=== PATIENT | male | born 1965 | race American Indian/Alaskan Native ===

== ENCOUNTER 2019-01-26 06:54 | Inpatient (IN) | payer OTHER ==
[2019-01-26] MEDS ORDERED: ASPIRIN PO ONE (08:00)
[2019-01-26 08:50] LABS: Basophils % (Auto) 0.5 % (0.0-1.8); Eosinophils # (Auto) 0.3 K/mm3 (0.0-0.4); Eosinophils % (Auto) 4.5 % (0.0-4.3); Hematocrit 29.2 % (35.5-45.6); Hemoglobin 9.5 gm/dl (11.8-15.2); Lymphocytes # (Auto) 1.4 K/mm3 (1.2-5.4); Lymphocytes % (Auto) 21.2 % (13.4-35.0); Mean Corpuscular HGB Conc 33 % (32-34); Mean Corpuscular Volume 84 fl (84-94); Monocytes # (Auto) 0.5 K/mm3 (0.0-0.8); Monocytes % (Auto) 6.8 % (0.0-7.3); Platelet Count 200 K/mm3 (140-440); Red Blood Count 3.49 M/mm3 (3.65-5.03); Red Cell Distribution Width 15.1 % (13.2-15.2)
[2019-01-26 08:55] LABS: Calcium 7.9 mg/dL (8.4-10.2)
--- NOTE | 2019-01-26 09:20 | XRay Report ---
ROUTINE CHEST, TWO VIEWS: HISTORY: Short of breath. Mild cardiomegaly and small right pleural effusion are identified. No evidence for a pneumothorax or infiltrate. The bony structures are intact. IMPRESSION: Mild cardiomegaly and small right pleural effusion.
[2019-01-26 09:21] LABS: Chol/HDL Ratio 1.97 %
--- NOTE | 2019-01-26 10:20 | Emergency Department Report ---
ED General Adult HPI - General Chief complaint: Dyspnea/Respdistress Stated complaint: LEG PAIN/SWELLING Time Seen by Provider: 01/26/19 10:17 Source: patient, RN notes reviewed, old records reviewed Mode of arrival: Wheelchair Limitations: Physical Limitation - History of Present Illness Initial comments: This is a 53-year-old gentleman. The patient is not known to this provider previously. He endorses not having a primary care doctor currently. Past medical history includes vasomotor nephropathy, type 2 diabetes, neuropathy, peripheral artery disease, recent hemoglobin A1c of greater than 16, chronic pancreatitis, malnutrition The patient presents to the emergency room today with a complaint of nontraumatic bilateral lower extremity swelling. He reports the swelling is present for the past 3-4 days. It is constant. It is painless. It does not radiate anywhere. He does not have exacerbating or relieving factors. He denies headache, neck pain, chest pain, abdominal pain, urinary symptoms, hematemesis, bright red blood per rectum. He has chronic shortness of breath. -: days(s) Location: left, right, lower extremity Consistency: constant Improves with: other Worsens with: other - Related Data Home Medications Medication Instructions Recorded Confirmed Last Taken Lisinopril [Zestril TAB] 10 mg PO DAILY 01/26/19 01/26/19 01/25/19 10 mg amLODIPine [Norvasc] 10 mg PO DAILY 01/26/19 01/26/19 01/25/19 10 mg Previous Rx's Medication Instructions Recorded Last Taken Type Acetaminophen [Acetaminophen TAB] 650 mg PO Q4H PRN #15 tablet 10/24/18 01/25/19 Rx Insulin NPH/Regular [NovoLIN 70/30] 20 unit SUB-Q BID #100 units 10/24/18 01/25/19 Rx Insulin Regular, Human [HumuLIN R] 1 dose SUB-Q ACHS PRN #100 units 10/24/18 01/25/19 Rx Allergies Allergy/AdvReac Type Severity Reaction Status Date / Time No Known Allergies Allergy Unverified 10/21/18 19:15 ED Review of Systems ROS: Stated complaint: LEG PAIN/SWELLING Other details as noted in HPI Constitutional: malaise Eyes: denies: eye discharge ENT: denies: congestion Respiratory: shortness of breath, SOB with exertion, SOB at rest Cardiovascular: edema Gastrointestinal: denies: abdominal pain, nausea, vomiting Genitourinary: denies: dysuria Musculoskeletal: denies: back pain Skin: denies: lesions Neurological: weakness Psychiatric: depression ED Past Medical Hx - Past Medical History Previous Medical History?: Yes Hx Hypertension: Yes Hx Diabetes: Yes - Surgical History Past Surgical History?: Yes Additional Surgical History: toes amputated - Social History Smoking Status: Never Smoker Substance Use Type: None - Medications Home Medications: Home Medications Medication Instructions Recorded Confirmed Last Taken Type Acetaminophen [Acetaminophen TAB] 650 mg PO Q4H PRN #15 tablet 10/24/18 01/26/19 01/25/19 Rx Insulin NPH/Regular [NovoLIN 70/30] 20 unit SUB-Q BID #100 units 10/24/18 01/26/19 01/25/19 Rx Insulin Regular, Human [HumuLIN R] 1 dose SUB-Q ACHS PRN #100 units 10/24/18 01/26/19 01/25/19 Rx Lisinopril [Zestril TAB] 10 mg PO DAILY 01/26/19 01/26/19 01/25/19 History 10 mg amLODIPine [Norvasc] 10 mg PO DAILY 01/26/19 01/26/19 01/25/19 History 10 mg ED Physical Exam - General Limitations: No Limitations, Physical Limitation General appearance: alert - Head Head exam: Present: atraumatic, normocephalic - Eye Eye exam: Present: normal appearance, EOMI. Absent: nystagmus - ENT ENT exam: Present: normal exam, normal orophraynx, mucous membranes moist, normal external ear exam - Neck Neck exam: Present: normal inspection, full ROM. Absent: tenderness, meningismus - Respiratory Respiratory exam: Present: normal lung sounds bilaterally. Absent: respiratory distress, wheezes, rales, rhonchi, stridor - Cardiovascular Cardiovascular Exam: Present: regular rate, normal rhythm, normal heart sounds. Absent: bradycardia, tachycardia, irregular rhythm, systolic murmur, diastolic murmur, rubs, gallop - GI/Abdominal GI/Abdominal exam: Present: soft. Absent: distended, tenderness, guarding, rebo und, rigid, pulsatile mass - Rectal Rectal exam: Present: deferred - Extremities Exam Extremities exam: Present: normal inspection (multiple toe amputations, old appearing, healed, on the right lower extremity), pedal edema (4+ pitting edema on the bilateral lower extremities, going all the way up to the proximal thigh), other (2+ pulses noted in the bilateral upper, lower extremities. Compartments soft. No long bony tenderness. The pelvis is stable.). Absent: calf tenderness - Back Exam Back exam: Present: normal inspection, full ROM. Absent: tenderness, CVA tenderness (R), CVA tenderness (L), paraspinal tenderness, vertebral tenderness - Neurological Exam Neurological exam: Present: alert, other (Extraocular movements intact. Tongue midline. No facial droop. Facial sensation intact to light touch in the V1, V2, V3 distribution bilaterally. 5 and 5 strength in 4 extremities.. Sensation is intact to light touch in 4 extremities.). Absent: motor sensory deficit - Psychiatric Psychiatric exam: Present: flat affect - Skin Skin exam: Present: warm, dry, intact, normal color. Absent: rash ED Course Vital Signs 01/26/19 01/26/19 01/26/19 07:14 10:27 10:31 Temperature 98.8 F Pulse Rate 83 79 79 Respiratory 20 17 16 Rate Blood Pressure 157/98 178/103 O2 Sat by Pulse 99 98 98 Oximetry 01/26/19 01/26/19 01/26/19 10:41 10:51 11:00 Temperature Pulse Rate 77 80 81 Respiratory 16 15 12 Rate Blood Pressure 178/103 178/103 169/104 O2 Sat by Pulse 99 97 100 Oximetry 01/26/19 01/26/19 11:19 11:31 Temperature Pulse Rate Respiratory Rate Blood Pressure 178/103 178/103 O2 Sat by Pulse Oximetry - Reevaluation(s) Reevaluation #1: 01/26/19 11:30 Elevated creatinine kinase reviewed and appreciated. Discussed with consulting cardiology. They recommend no obvious fluids at this time. We will defer to the inpatient team to further manage this. Reevaluation #2: 01/26/19 18:57 dvt study negative ED Medical Decision Making - Lab Data Result diagrams: 01/26/19 08:17 01/26/19 08:17 Vital Signs 01/26/19 07:14 Temperature 98.8 F Pulse Rate 83 Respiratory 20 Rate Blood Pressure 157/98 O2 Sat by Pulse 99 Oximetry Lab Results 01/26/19 01/26/19 Range/Units 08:17 08:17 WBC 6.7 (4.5-11.0) K/mm3 RBC 3.49 L (3.65-5.03) M/mm3 Hgb 9.5 L (11.8-15.2) gm/dl Hct 29.2 L (35.5-45.6) % MCV 84 (84-94) fl MCH 27 L (28-32) pg MCHC 33 (32-34) % RDW 15.1 (13.2-15.2) % Plt Count 200 (140-440) K/mm3 Lymph % (Auto) 21.2 (13.4-35.0) % [place] % (Auto) 6.8 (0.0-7.3) % Eos % (Auto) 4.5 H (0.0-4.3) % Baso % (Auto) 0.5 (0.0-1.8) % Lymph # 1.4 (1.2-5.4) K/mm3 [place] # 0.5 (0.0-0.8) K/mm3 Eos # 0.3 (0.0-0.4) K/mm3 Baso # 0.0 (0.0-0.1) K/mm3 Seg Neutrophils % 67.0 (40.0-70.0) % Seg Neutrophils # 4.5 (1.8-7.7) K/mm3 Sodium 144 (137-145) mmol/L Potassium 3.5 L (3.6-5.0) mmol/L Chloride 111.3 H (98-107) mmol/L Carbon Dioxide 21 L (22-30) mmol/L Anion Gap 15 mmol/L BUN 20 (9-20) mg/dL Creatinine 1.8 H (0.8-1.5) mg/dL Estimated GFR 48 ml/min BUN/Creatinine Ratio 11 % Glucose 125 H (75-100) mg/dL Calcium 7.9 L (8.4-10.2) mg/dL Troponin T 0.321 H* (0.00-0.029) ng/mL Triglycerides 44 (2-149) mg/dL Cholesterol 154 (50-199) mg/dL LDL Cholesterol Direct 72 (50-130) mg/dL HDL Cholesterol 78 H (40-59) mg/dL Cholesterol/HDL Ratio 1.97 % - EKG Data -: EKG Interpreted by Ut EKG shows normal: sinus rhythm - EKG Data When compared to previous EKG there are: previous EKG unavailable 01/26/19 10:56 This EKG is limited by motion artifact. This is a normal sinus rhythm, 82 bpm, left axis deviation, left anterior fascicular block, incomplete right bundle- branch block, QTC prolonged, not having chest pain, flattened T waves laterally, this is an abnormal EKG, this is not consistent with ST elevation myocardial infarction. - Radiology Data Radiology results: report reviewed, image reviewed Print Report Referring Physician: JULIO CÉSAR HUTSON Patient Name: TOI TOLENTINO Date of : 1965 Sex: Male Report Date: 2019-01-26 Report Status: Finalized Findings [facility] [address] [id number] XRay Report Signed Patient: TOI TOLENTINO MR#: [id number] : 1965 Acct:[id number] Age/Sex: 53 / M ADM Date: 01/26/19 Loc: ED Attending Dr: Ordering Physician: JULIO CÉSAR HUTSON MD Date of Service: 01/26/19 Procedure(s): XR chest routine 2V Accession Number(s): [id number] cc: JULIO CÉSAR HUTSON MD Fluoro Time In Minutes: ROUTINE CHEST, TWO VIEWS: HISTORY: Short of breath. Mild cardiomegaly and small right pleural effusion are identified. No evidence for a pneumothorax or infiltrate. The bony structures are intact. IMPRESSION: Mild cardiomegaly and small right pleural effusion. Transcribed By: TTR Dictated By: EDILBERTO STUART JR, MD Electronically Authenticated By: EDILBERTO STUART JR, MD Signed Date/Time: 01/26/19 0915 - Medical Decision Making Differential diagnosis, including not limited to: Alcoholic nonischemic car diomyopathy, malnutrition, dependent edema, right-sided heart failure, type II myocardial infarction Assessment and plan: 53-year-old gentleman, known history of alcoholism, found to have bilateral lower extremity edema, elevated troponin, not having chest pain, likely type II myocardial infarction, likely secondary to undiagnosed congestive heart failure, likely secondary to chronic alcoholism. The patient is not tachycardic and he is not hypoxic. He will be given aspirin and Lasix. Additional screening laboratory studies have been ordered. Lower extremity DVT study has been ordered. Cardiology consult has been requested, and currently, Dr. Adi Baeza and Tate Azevedo of the cardiology team are evaluating the patient. The hospital physician, Dr. Cristi Reddy, we'll admit the patient to the medical service for fluid overload, presumed congestive heart failure, diuresis and further inpatient management. Critical Care Time: Yes Critical care time in (mins) excluding proc time.: 35 Critical care attestation.: If time is entered above; I have spent that time in minutes in the direct care of this critically ill patient, excluding procedure time. ED Disposition Clinical Impression: Dependent edema, Type 2 myocardial infarction, Cardiomyopathy, alcoholic Disposition: 09 OP ADMIT IP TO THIS HOSP Is pt being admited?: Yes Does the pt Need Aspirin: Yes Condition: Stable
[2019-01-26] MEDS ORDERED: LASIX IV ONE (10:27)
[2019-01-26 10:55] LABS: INR 1.05 (0.87-1.13)
[2019-01-26] MEDS ORDERED: OSCAL PO STA (10:58)
[2019-01-26 11:01] LABS: Alanine Aminotransferase 49 units/L (7-56); Albumin 2.8 g/dL (3.9-5)
[2019-01-26] MEDS ORDERED: NITROSTAT SL PRN (11:04)
[2019-01-26] MEDS ORDERED: TYLENOL PO PRN ×2 (11:04→11:08)
[2019-01-26] MEDS ORDERED: ATIVAN IV PRN (11:04)
[2019-01-26] MEDS ORDERED: ZOFRAN IV PRN (11:04)
[2019-01-26] MEDS ORDERED: D50W (25GM) Syringe IV PRN (11:09)
--- NOTE | 2019-01-26 11:11 | History and Physical Report ---
History of Present Illness Date of examination: 01/26/19 Date of admission: 01/26/19 Chief complaint: bilateral lower ext swelling History of present illness: Patient is a 53 year old male with past medical history of DM, PVD s/p partial right foot amputation, chronic pancreatitis, prior ETOH abuse (states he quit drinking several years ago). We'll presents to the ED with complaints of bilateral lower extremity swelling, shortness of breath and orthopnea which she states has been going on for several days prior to arrival but on further discussion the patient reports that he just recently located from the [facility] and has been to multiple hospitals at that [facility]. On arrival to the hospital the patient was noted to have elevated creatinine and troponin and also elevated bilateral swelling. He does not have a PCP currently. He denies any chest pain, palpitations, n/v, diaphoresis, dizziness or syncope. He denies any prior cardiac diagnoses, including CAD, AMI or HF. Past medical history includes vasomotor nephropathy, type 2 diabetes, neuropathy, peripheral artery disease, recent hemoglobin A1c of greater than 16, chronic pancreatitis, malnutrition, Alcoholic nonischemic cardiomyopathy, malnutrition, dependent edema, right-sided heart failure, type II myocardial infarction Past History Past Surgical History: Other (partial amputation) Social history: no significant social history Family history: no significant family history Medications and Allergies Allergies Allergy/AdvReac Type Severity Reaction Status Date / Time No Known Allergies Allergy Unverified 10/21/18 19:15 Home Medications Medication Instructions Recorded Confirmed Last Taken Type Acetaminophen [Acetaminophen TAB] 650 mg PO Q4H PRN #15 tablet 10/24/18 01/26/19 01/25/19 Rx Insulin NPH/Regular [NovoLIN 70/30] 20 unit SUB-Q BID #100 units 10/24/18 01/26/19 01/25/19 Rx Insulin Regular, Human [HumuLIN R] 1 dose SUB-Q ACHS PRN #100 units 10/24/18 01/26/19 01/25/19 Rx Lisinopril [Zestril TAB] 10 mg PO DAILY 01/26/19 01/26/19 01/25/19 History 10 mg amLODIPine [Norvasc] 10 mg PO DAILY 01/26/19 01/26/19 01/25/19 History 10 mg Review of Systems All systems: negative Constitutional: weight gain, fever, lethargy, no anorexia, no fatigue, no weakness, no malaise Cardiovascular: orthopnea, palpitations, edema, lightheadedness, shortness of breath, high blood pressure Respiratory: cough, shortness of breath, dyspnea on exertion, congestion, no wheezing, no pleurisy, no pain on inspiration, no sleep apnea Gastrointestinal: no abdominal pain, no nausea, no vomiting, no diarrhea, no constipation, no change in bowel habits, no hematemesis, no hematochezia, no early satiety, no indigestion, no jaundice, no dyspepsia/bloating, no early satiety Genitourinary Male: no dysuria, no flank pain, no discharge, no urinary frequency, no urinary hesitancy, no incontinence, no decreased libido, no testicular lump, no polyuria Musculoskeletal: no neck pain, no shooting arm pain, no arm numbness/tingling, no low back pain, no morning stiffness, no muscle weakness, no muscle cramps, no frequent falls, no prior amputations Integumentary: no deferred, no pruritis, no sores, no wounds, no jaundice, no bullae, no lesions, no darkening of skin, no depigmentation, no acne, no brittle nails, no onychomycosis Neurological: no transient paralysis, no weakness, no numbness, no syncope, no headaches, no change in speech, no motor disturbance, no loss of vision, no burning pain Psychiatric: no memory loss, no change in sleep habits, no insomnia, no confusion Endocrine: no heat intolerance, no excessive thirst, no polyuria, no palpatations, no high blood sugars Exam - Physical Exam Narrative exam: VITAL SIGNS: Reviewed. GENERAL: The patient appeared well nourished and normally developed, Vital signs as documented. HEAD: No signs of head trauma. EYES: Pupils are equal. Extraocular motions intact. EARS: Hearing grossly intact. MOUTH: Oropharynx is normal. NECK: No adenopathy, no JVD. Mildly tender on the right side. CHEST: Chest with clear breath sounds bilaterally. No wheezes, rales, or rhonchi. CARDIAC: Regular rate and rhythm. S1 and S2, without murmurs, gallops, or rubs. VASCULAR: +3 Edema. Peripheral pulses normal and equal in all extremities. ABDOMEN: Soft, non tender and non distended. No rebound or guarding, and no masses palpated. Bowel Sounds normal. MUSCULOSKELETAL: Good range of motion of all major joints. Extremities without clubbing, cyanosis. +3 edema. NEUROLOGIC EXAM: Alert and oriented x 3 No focal sensory or strength de ficits. Speech normal. Follows commands. PSYCHIATRIC: Mood normal. SKIN: No rash or lesions. - Constitutional Vitals: Temp Pulse Resp BP Pulse Ox 98.8 F 83 20 157/98 99 01/26/19 07:14 01/26/19 07:14 01/26/19 07:14 01/26/19 07:14 01/26/19 07:14 Results - Labs CBC & Chem 7: 01/26/19 08:17 01/26/19 08:17 Labs: Laboratory Last Values WBC 6.7 K/mm3 (4.5-11.0) 01/26/19 08:17 RBC 3.49 M/mm3 (3.65-5.03) L 01/26/19 08:17 Hgb 9.5 gm/dl (11.8-15.2) L 01/26/19 08:17 Hct 29.2 % (35.5-45.6) L 01/26/19 08:17 MCV 84 fl (84-94) 01/26/19 08:17 MCH 27 pg (28-32) L 01/26/19 08:17 MCHC 33 % (32-34) 01/26/19 08:17 RDW 15.1 % (13.2-15.2) 01/26/19 08:17 Plt Count 200 K/mm3 (140-440) 01/26/19 08:17 Lymph % (Auto) 21.2 % (13.4-35.0) 01/26/19 08:17 [place] % (Auto) 6.8 % (0.0-7.3) 01/26/19 08:17 Eos % (Auto) 4.5 % (0.0-4.3) H 01/26/19 08:17 Baso % (Auto) 0.5 % (0.0-1.8) 01/26/19 08:17 Lymph # 1.4 K/mm3 (1.2-5.4) 01/26/19 08:17 [place] # 0.5 K/mm3 (0.0-0.8) 01/26/19 08:17 Eos # 0.3 K/mm3 (0.0-0.4) 01/26/19 08:17 Baso # 0.0 K/mm3 (0.0-0.1) 01/26/19 08:17 Seg Neutrophils % 67.0 % (40.0-70.0) 01/26/19 08:17 Seg Neutrophils # 4.5 K/mm3 (1.8-7.7) 01/26/19 08:17 PT 14.4 Sec. (12.2-14.9) 01/26/19 10:38 INR 1.05 (0.87-1.13) 01/26/19 10:38 Sodium 144 mmol/L (137-145) 01/26/19 08:17 Potassium 3.5 mmol/L (3.6-5.0) L 01/26/19 08:17 Chloride 111.3 mmol/L (98-107) H 01/26/19 08:17 Carbon Dioxide 21 mmol/L (22-30) L 01/26/19 08:17 15 mmol/L 01/26/19 08:17 BUN 20 mg/dL (9-20) 01/26/19 08:17 1.8 mg/dL (0.8-1.5) H 01/26/19 08:17 Estimated GFR 48 ml/min 01/26/19 08:17 11 % 01/26/19 08:17 Glucose 125 mg/dL (75-100) H 01/26/19 08:17 Calcium 7.9 mg/dL (8.4-10.2) L 01/26/19 08:17 Magnesium 1.70 mg/dL (1.7-2.3) 01/26/19 08:09 0.20 mg/dL (0.1-1.2) 01/26/19 08:09 AST 45 units/L (5-40) H 01/26/19 08:09 ALT 49 units/L (7-56) 01/26/19 08:09 210 units/L (35-129) H 01/26/19 08:09 1666 units/L (55-170) H 01/26/19 08:09 0.321 ng/mL (0.00-0.029) H* 01/26/19 08:17 NT-Pro-B Natriuret Pep 22641 pg/mL (0-900) H 01/26/19 08:09 5.4 g/dL (6.3-8.2) L 01/26/19 08:09 2.8 g/dL (3.9-5) L 01/26/19 08:09 1.1 % 01/26/19 08:09 Triglycerides 44 mg/dL (2-149) 01/26/19 08:17 Cholesterol 154 mg/dL (50-199) 01/26/19 08:17 72 mg/dL (50-130) 01/26/19 08:17 78 mg/dL (40-59) H 01/26/19 08:17 1.97 % 01/26/19 08:17 - Imaging and Cardiology Chest x-ray: image reviewed Assessment and Plan Assessment and plan: Patient is a 53 year old male with past medical history of DM, PVD s/p partial right foot amputation, chronic pancreatitis, prior ETOH abuse (states he quit drinking several years ago). We'll presents to the ED with complaints of bilateral lower extremity swelling, shortness of breath and orthopnea which she states has been going on for several days prior to arrival but on further disc ussion the patient reports that he just recently located from the [facility] and has been to multiple hospitals at that [facility]. On arrival to the hospital the patient was noted to have elevated creatinine and troponin and also elevated bilateral swelling. He does not have a PCP currently. He denies any chest pain, palpitations, n/v, diaphoresis, dizziness or syncope. He denies any prior cardiac diagnoses, including CAD, AMI or HF. 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 Obtain records from [facility] if we can find in the DVT and GI prophylaxis Plan of care discussed with the patient in detail Advance Directives: Yes Plan of care discussed with patient/family: Yes
[2019-01-26 11:26] LABS: Bilirubin,Direct < 0.2 mg/dL (0-0.2)
[2019-01-26] MEDS ORDERED: CREON DR 6,000 UNITS PO SCH (11:30)
--- NOTE | 2019-01-26 12:23 | Vascular Lab Report ---
PROCEDURE: VL VENOUS DUPLEX LE BILAT TECHNIQUE: Mercado scale, color and pulsed Doppler ultrasound with color flow and spectral analysis eval uation of both lower extremities were performed to assess for deep vein thrombosis. HISTORY: B/L LOWER EXT SWELLING COMPARISONS: None currently available. FINDINGS: Bilateral soft tissue swelling. RIGHT extremity: There is normal grayscale appearance and compressibility. Normal phasic pulsed Doppler and normal col or Doppler flow are visualized. The interrogated vessels show normal augmentation. LEFT extremity: There is normal grayscale appearance and compressibility. Normal phasic pulsed Doppler and normal col or Doppler flow are visualized. The interrogated vessels show normal augmentation. IMPRESSION: * No evidence for DVT. This document is electronically signed by Andrew Thompson MD., Jan 26 2019 12:21:26 PM ET
[2019-01-26] MEDS: HumaLOG SUB-Q SCH ×3 (12:52→23:04)
[2019-01-26] MEDS ORDERED: APRESOLINE IV ONE (13:42)
--- NOTE | 2019-01-26 14:06 | Consultation ---
History of Present Illness Consult date: 01/26/19 Requesting physician: CARL DOS SANTOS Consult reason: congestive heart failure, elevated troponin History of present illness: The pt is a 53-year-old gentleman with a past medical history of DM, PVD s/p partial left foot amputation, chronic pancreatitis, prior ETOH abuse (states he quit drinking several years ago). He is previously unknown to our practice. He does not have a PCP currently. He presented with complaints of BLE swelling, SOB and orthopnea for several days prior to arrival. He denies any chest pain, pa lpitations, n/v, diaphoresis, dizziness or syncope. He denies any prior cardiac diagnoses, including CAD, AMI or HF. Past History Past Medical History: diabetes, PVD Past Surgical History: Other (partial left foot amputation) Social history: alcohol abuse (former). denies: smoking, prescription drug abuse Medications and Allergies Allergies Allergy/AdvReac Type Severity Reaction Status Date / Time No Known Allergies Allergy Unverified 10/21/18 19:15 Home Medications Medication Instructions Recorded Confirmed Last Taken Type Acetaminophen [Acetaminophen TAB] 650 mg PO Q4H PRN #15 tablet 10/24/18 01/26/19 01/25/19 Rx Insulin NPH/Regular [NovoLIN 70/30] 20 unit SUB-Q BID #100 units 10/24/18 01/26/19 01/25/19 Rx Insulin Regular, Human [HumuLIN R] 1 dose SUB-Q ACHS PRN #100 units 10/24/18 01/26/19 01/25/19 Rx Lisinopril [Zestril TAB] 10 mg PO DAILY 01/26/19 01/26/19 01/25/19 History 10 mg amLODIPine [Norvasc] 10 mg PO DAILY 01/26/19 01/26/19 01/25/19 History 10 mg Active Meds: Active Medications Acetaminophen (Tylenol) 650 mg PO Q4H PRN PRN Reason: Non Cardiac Pain or Temp>100.5 Amlodipine Besylate (Norvasc) 10 mg PO DAILY JAMIE Lipase/Protease/Amylase (Creon Dr 12,000 Units) 6 each PO AC JAMIE Aspirin (Baby Aspirin) 81 mg PO QDAY JAMIE Dextrose (D50w (25gm) Syringe) 50 ml IV PRN PRN PRN Reason: Hypoglycemia Last Admin: 01/26/19 13:03 Dose: 50 ml Documented by: Furosemide (Lasix) 40 mg IV 0600,1800 [facility] Insulin Human Isoph/Insulin Regular (Humulin 70/30) 20 unit SUB-Q BID [facility] Insulin Human Lispro (Humalog) 0 unit SUB-Q ACHS [facility]; Protocol Last Admin: 01/26/19 12:52 Dose: Not Given Documented by: Lorazepam (Ativan) 2 mg IV Q1H PRN PRN Reason: CIWA-Ar 8-15 Nitroglycerin (Nitrostat) 0.4 mg SL .Q5MIN PRN PRN Reason: Chest Pain Ondansetron HCl (Zofran) 4 mg IV Q8H PRN PRN Reason: Nausea And Vomiting Sodium Chloride (Sodium Chloride Flush Syringe 10 Ml) 10 ml IV BID [facility] Sodium Chloride (Sodium Chloride Flush Syringe 10 Ml) 10 ml IV PRN PRN PRN Reason: LINE FLUSH Review of Systems Constitutional: no fever, no chills, no sweats Ears, nose, mouth and throat: no ear pain, no nose pain, no sinus pressure, no sinus pain Cardiovascular: orthopnea, edema, shortness of breath, dyspnea on exertion, leg edema, no chest pain, no palpitations, no rapid/irregular heart beat, no syncope, no lightheadedness, no high blood pressure Respiratory: shortness of breath, dyspnea on exertion, no cough, no congestion, no wheezing, no pain on inspiration Gastrointestinal: no abdominal pain, no nausea, no vomiting, no diarrhea, no constipation Genitourinary Male: no dysuria, no hematuria, no flank pain, no discharge, no urinary frequency, no urinary hesitancy Musculoskeletal: no neck stiffness, no neck pain, no shooting arm pain, no arm numbness/tingling, no low back pain, no shooting leg pain Integumentary: no rash, no pruritis, no redness, no sores, no wounds Neurological: no head injury, no paralysis, no weakness, no parathesias, no numbness, no tingling, no seizures, no syncope Psychiatric: no anxiety Endocrine: no cold intolerance, no heat intolerance Hematologic/Lymphatic: no easy bruising, no easy bleeding Allergic/Immunologic: no urticaria, no wheezing Physical Examination Vital Signs Temp Pulse Resp BP Pulse Ox 98.8 F 83 20 157/98 99 01/26/19 07:14 01/26/19 07:14 01/26/19 07:14 01/26/19 07:14 01/26/19 07:14 General appearance: no acute distress HEENT: Positive: PERRL, Normocephaly, Mucus Membranes Moist Neck: Positive: neck supple, trachea midline Cardiac: Positive: Reg Rate and Rhythm, S1/S2, S3 Lungs: Positive: Decreased Breath Sounds Abdomen: Negative: Tender Skin: Negative: Rash Musculoskeletal: other (partial left foot amputation ) Extremities: Present: +3 Edema (BLE ) Results 01/26/19 08:17 01/26/19 08:17 Cardiac Enzymes 01/26/19 Range/Units 08:09 AST 45 H (5-40) units/L Coagulation 01/26/19 Range/Units 10:38 PT 14.4 (12.2-14.9) Sec. INR 1.05 (0.87-1.13) Lipids 01/26/19 Range/Units 08:17 Triglycerides 44 (2-149) mg/dL Cholesterol 154 (50-199) mg/dL HDL Cholesterol 78 H (40-59) mg/dL Cholesterol/HDL Ratio 1.97 % CBC 01/26/19 Range/Units 08:17 WBC 6.7 (4.5-11.0) K/mm3 RBC 3.49 L (3.65-5.03) M/mm3 Hgb 9.5 L (11.8-15.2) gm/dl Hct 29.2 L (35.5-45.6) % Plt Count 200 (140-440) K/mm3 Lymph # 1.4 (1.2-5.4) K/mm3 Ward # 0.5 (0.0-0.8) K/mm3 Eos # 0.3 (0.0-0.4) K/mm3 Baso # 0.0 (0.0-0.1) K/mm3 Comprehensive Metabolic Panel 01/26/19 01/26/19 Range/Units 08:09 08:17 Sodium 144 (137-145) mmol/L Potassium 3.5 L (3.6-5.0) mmol/L Chloride 111.3 H (98-107) mmol/L Carbon Dioxide 21 L (22-30) mmol/L BUN 20 (9-20) mg/dL Creatinine 1.8 H (0.8-1.5) mg/dL Glucose 125 H (75-100) mg/dL Calcium 7.9 L (8.4-10.2) mg/dL Direct Bilirubin < 0.2 (0-0.2) mg/dL Indirect Bilirubin 0.0 mg/dL AST 45 H (5-40) units/L ALT 49 (7-56) units/L Alkaline Phosphatase 210 H (35-129) units/L Total Protein 5.4 L (6.3-8.2) g/dL Albumin 2.8 L (3.9-5) g/dL - Imaging and Cardiology Echo: pending EKG: report reviewed, image reviewed EKG interpretations - Telemetry EKG Rhythm: Sinus Rhythm - EKG Sinus rhythms and dysrhythmias: sinus rhythm Assessment and Plan Pt presented with apparent new diagnosis acute HF. He is noted to have a significant degree of BLE edema and S3 gallop on evaluation. Agree with IV lasix BID. Monitor renal indices. Optimize BPs - initiate coreg, cont amlodipine. No ACEI/ARB at this time in setting of renal insufficiency. Obtain echo. Troponin elevation appears c/w NSTEMI type II in setting of HF, renal insuffic iency, uncontrolled HTN, anemia, etc. Pt denies any chest pain, ECG with no acute ischemic changes. Cont to trend Fabi and repeat ECG in AM. Additional recs to follow per hospital course. The patient has been seen in conjunction with Dr. Baeza who agrees with the assessment and plan of care. - Patient Problems (1) Acute heart failure Current Visit: Yes Status: Acute (2) NSTEMI (non-ST elevated myocardial infarction) Current Visit: Yes Status: Acute Plan to address problem: type II (3) Uncontrolled hypertension Current Visit: Yes Status: Chronic (4) Diabetes Current Visit: Yes Status: Chronic (5) History of chronic pancreatitis Current Visit: Yes Status: Chronic (6) History of ETOH abuse Current Visit: Yes Status: Chronic (7) PVD (peripheral vascular disease) Current Visit: Yes Status: Chronic (8) Anemia Current Visit: Yes Status: Acute (9) ANYA (acute kidney injury) Current Visit: Yes Status: Acute
[2019-01-26] MEDS ORDERED: K-DUR PO ONE (14:19)
[2019-01-26 14:30] LABS: Creatine Kinase MB 14.8 ng/mL (0.0-4.0)
--- NOTE | 2019-01-26 15:08 | History and Physical Report ---
History of Present Illness Date of examination: 01/26/19 Date of admission: 01/26/19 10:38 Chief complaint: bilateral lower ext swelling History of present illness: The pt is a 53-year-old gentleman with a past medical history of DM, PVD s/p partial left foot amputation, chronic pancreatitis, prior ETOH abuse (states he quit drinking several years ago). He is previously unknown to our practice. He does not have a PCP currently. He presented with complaints of BLE swelling, SOB and orthopnea for several days prior to arrival. He denies any chest pain, palpitations, n/v, diaphoresis, dizziness or syncope. He denies any prior cardiac diagnoses, including CAD, AMI or HF. Past History Past Medical History: diabetes, PVD Past Surgical History: Other (partial left foot amputation) Social history: alcohol abuse (former). denies: smoking, prescription drug abuse Medications and Allergies Allergies Allergy/AdvReac Type Severity Reaction Status Date / Time No Known Allergies Allergy Unverified 10/21/18 19:15 Home Medications Medication Instructions Recorded Confirmed Last Taken Type Acetaminophen [Acetaminophen TAB] 650 mg PO Q4H PRN #15 tablet 10/24/18 01/26/19 01/25/19 Rx Insulin NPH/Regular [NovoLIN 70/30] 20 unit SUB-Q BID #100 units 10/24/18 01/26/19 01/25/19 Rx Insulin Regular, Human [HumuLIN R] 1 dose SUB-Q ACHS PRN #100 units 10/24/18 01/26/19 01/25/19 Rx Lisinopril [Zestril TAB] 10 mg PO DAILY 01/26/19 01/26/19 01/25/19 History 10 mg amLODIPine [Norvasc] 10 mg PO DAILY 01/26/19 01/26/19 01/25/19 History 10 mg Active Meds: Active Medications Acetaminophen (Tylenol) 650 mg PO Q4H PRN PRN Reason: Non Cardiac Pain or Temp>100.5 Amlodipine Besylate (Norvasc) 10 mg PO DAILY JAMIE Lipase/Protease/Amylase (Alex Espinoza 12,000 Units) 6 each PO AC JAMIE Aspirin (Baby Aspirin) 81 mg PO QDAY JAMIE Carvedilol (Coreg) 6.25 mg PO BID JAMIE Dextrose (D50w (25gm) Syringe) 50 ml IV PRN PRN PRN Reason: Hypoglycemia Last Admin: 01/26/19 13:03 Dose: 50 ml Documented by: Furosemide (Lasix) 40 mg IV 0600,1800 [facility] Insulin Human Isoph/Insulin Regular (Humulin 70/30) 20 unit SUB-Q BID [facility] Insulin Human Lispro (Humalog) 0 unit SUB-Q ACHS [facility]; Protocol Last Admin: 01/26/19 12:52 Dose: Not Given Documented by: Lorazepam (Ativan) 2 mg IV Q1H PRN PRN Reason: CIWA-Ar 8-15 Nitroglycerin (Nitrostat) 0.4 mg SL .Q5MIN PRN PRN Reason: Chest Pain Ondansetron HCl (Zofran) 4 mg IV Q8H PRN PRN Reason: Nausea And Vomiting Sodium Chloride (Sodium Chloride Flush Syringe 10 Ml) 10 ml IV BID [facility] Sodium Chloride (Sodium Chloride Flush Syringe 10 Ml) 10 ml IV PRN PRN PRN Reason: LINE FLUSH Exam - Constitutional Vitals: Temp Pulse Resp BP Pulse Ox 98.0 F 81 18 192/111 97 01/26/19 12:46 01/26/19 12:46 01/26/19 12:46 01/26/19 12:46 01/26/19 12:46 Results - Labs CBC & Chem 7: 01/26/19 08:17 01/26/19 08:17 Labs: Laboratory Last Values WBC 6.7 K/mm3 (4.5-11.0) 01/26/19 08:17 RBC 3.49 M/mm3 (3.65-5.03) L 01/26/19 08:17 Hgb 9.5 gm/dl (11.8-15.2) L 01/26/19 08:17 Hct 29.2 % (35.5-45.6) L 01/26/19 08:17 MCV 84 fl (84-94) 01/26/19 08:17 MCH 27 pg (28-32) L 01/26/19 08:17 MCHC 33 % (32-34) 01/26/19 08:17 RDW 15.1 % (13.2-15.2) 01/26/19 08:17 Plt Count 200 K/mm3 (140-440) 01/26/19 08:17 Lymph % (Auto) 21.2 % (13.4-35.0) 01/26/19 08:17 Person % (Auto) 6.8 % (0.0-7.3) 01/26/19 08:17 Eos % (Auto) 4.5 % (0.0-4.3) H 01/26/19 08:17 Baso % (Auto) 0.5 % (0.0-1.8) 01/26/19 08:17 Lymph # 1.4 K/mm3 (1.2-5.4) 01/26/19 08:17 Person # 0.5 K/mm3 (0.0-0.8) 01/26/19 08:17 Eos # 0.3 K/mm3 (0.0-0.4) 01/26/19 08:17 Baso # 0.0 K/mm3 (0.0-0.1) 01/26/19 08:17 Seg Neutrophils % 67.0 % (40.0-70.0) 01/26/19 08:17 Seg Neutrophils # 4.5 K/mm3 (1.8-7.7) 01/26/19 08:17 PT 14.4 Sec. (12.2-14.9) 01/26/19 10:38 INR 1.05 (0.87-1.13) 01/26/19 10:38 Sodium 144 mmol/L (137-145) 01/26/19 08:17 Potassium 3.5 mmol/L (3.6-5.0) L 01/26/19 08:17 Chloride 111.3 mmol/L (98-107) H 01/26/19 08:17 Carbon Dioxide 21 mmol/L (22-30) L 01/26/19 08:17 15 mmol/L 01/26/19 08:17 BUN 20 mg/dL (9-20) 01/26/19 08:17 1.8 mg/dL (0.8-1.5) H 01/26/19 08:17 Estimated GFR 48 ml/min 01/26/19 08:17 11 % 01/26/19 08:17 Glucose 125 mg/dL (75-100) H 01/26/19 08:17 POC Glucose 133 (70-105) H 01/26/19 13:43 Calcium 7.9 mg/dL (8.4-10.2) L 01/26/19 08:17 Magnesium 1.70 mg/dL (1.7-2.3) 01/26/19 08:09 0.20 mg/dL (0.1-1.2) 01/26/19 08:09 < 0.2 mg/dL (0-0.2) 01/26/19 08:09 0.0 mg/dL 01/26/19 08:09 AST 45 units/L (5-40) H 01/26/19 08:09 ALT 49 units/L (7-56) 01/26/19 08:09 210 units/L (35-129) H 01/26/19 08:09 1732 units/L (55-170) H 01/26/19 13:44 CK-MB (CK-2) 14.8 ng/mL (0.0-4.0) H 01/26/19 13:44 CK-MB (CK-2) Rel Index 0.8 (0-4) 01/26/19 13:44 0.264 ng/mL (0.00-0.029) H* 01/26/19 13:44 NT-Pro-B Natriuret Pep 29478 pg/mL (0-900) H 01/26/19 08:09 5.4 g/dL (6.3-8.2) L 01/26/19 08:09 2.8 g/dL (3.9-5) L 01/26/19 08:09 1.1 % 01/26/19 08:09 Triglycerides 44 mg/dL (2-149) 01/26/19 08:17 Cholesterol 154 mg/dL (50-199) 01/26/19 08:17 72 mg/dL (50-130) 01/26/19 08:17 78 mg/dL (40-59) H 01/26/19 08:17 1.97 % 01/26/19 08:17
[2019-01-26] MEDS ORDERED: APRESOLINE IV PRN (15:24)
[2019-01-26] MEDS: NORVASC PO SCH (15:38)
[2019-01-26] MEDS: COREG PO SCH ×2 (15:39→23:13)
--- NOTE | 2019-01-26 17:59 | Consultation ---
History of Present Illness - History of Present Illness 53-year-old gentleman with history significant for hypertension admitted with complaints of worsening shortness of breath or significant orthopnea and PND also reports significant extremity edema which is it happened very suddenly. He denies any excessive salt intake denies any known prior history of congestive heart failure he denies any abdominal distention denies any strenuous activity or exercise in the preceding few days. He denies any abdominal pain fever chills Past History Past Medical History: diabetes, PVD Past Surgical History: Other (partial amputation) Social history: no significant social history Family history: no significant family history Medications and Allergies Allergies Allergy/AdvReac Type Severity Reaction Status Date / Time No Known Allergies Allergy Unverified 10/21/18 19:15 Home Medications Medication Instructions Recorded Confirmed Last Taken Type Acetaminophen [Acetaminophen TAB] 650 mg PO Q4H PRN #15 tablet 10/24/18 01/26/19 01/25/19 Rx Insulin NPH/Regular [NovoLIN 70/30] 20 unit SUB-Q BID #100 units 10/24/18 01/26/19 01/25/19 Rx Insulin Regular, Human [HumuLIN R] 1 dose SUB-Q ACHS PRN #100 units 10/24/18 01/26/19 01/25/19 Rx Lisinopril [Zestril TAB] 10 mg PO DAILY 01/26/19 01/26/19 01/25/19 History 10 mg amLODIPine [Norvasc] 10 mg PO DAILY 01/26/19 01/26/19 01/25/19 History 10 mg Active Meds: Active Medications Acetaminophen (Tylenol) 650 mg PO Q4H PRN PRN Reason: Non Cardiac Pain or Temp>100.5 Amlodipine Besylate (Norvasc) 10 mg PO DAILY [facility] Last Admin: 01/26/19 15:38 Dose: 10 mg Documented by: Lipase/Protease/Amylase (Alex Espinoza 12,000 Units) 6 each PO AC JAMIE Aspirin (Baby Aspirin) 81 mg PO QDAY JAMIE Carvedilol (Coreg) 6.25 mg PO BID [facility] Last Admin: 01/26/19 15:39 Dose: 6.25 mg Documented by: Dextrose (D50w (25gm) Syringe) 50 ml IV PRN PRN PRN Reason: Hypoglycemia Last Admin: 01/26/19 13:03 Dose: 50 ml Documented by: Furosemide (Lasix) 80 mg IV 09,1999 [facility] Hydralazine HCl (Apresoline) 10 mg IV Q4HR PRN PRN Reason: Hypertension Insulin Human Isoph/Insulin Regular (Humulin 70/30) 20 unit SUB-Q BID [facility] Insulin Human Lispro (Humalog) 0 unit SUB-Q ACHS [facility]; Protocol Last Admin: 01/26/19 12:52 Dose: Not Given Documented by: Lorazepam (Ativan) 2 mg IV Q1H PRN PRN Reason: CIWA-Ar 8-15 Nitroglycerin (Nitrostat) 0.4 mg SL .Q5MIN PRN PRN Reason: Chest Pain Ondansetron HCl (Zofran) 4 mg IV Q8H PRN PRN Reason: Nausea And Vomiting Sodium Chloride (Sodium Chloride Flush Syringe 10 Ml) 10 ml IV BID [facility] Sodium Chloride (Sodium Chloride Flush Syringe 10 Ml) 10 ml IV PRN PRN PRN Reason: LINE FLUSH Exam - Vital Signs Vital signs: Vital Signs Temp Pulse Resp BP Pulse Ox 98.8 F 83 20 157/98 99 01/26/19 07:14 01/26/19 07:14 01/26/19 07:14 01/26/19 07:14 01/26/19 07:14 - General Appearance General appearance: well-developed, well-nourished EENT: ATNC, PERRL, mucous membranes moist Neck: Present: neck supple, JVD/HJR Respiratory: Decreased Breath Sounds Heart: regular, tachycardia, S1S2, S3, other (edema) Gastrointestinal: Present: normal, normoactive bowel sounds Integumentary: no rash Neurologic: no focal deficit, alert and oriented x3, CN 3-12 intact Musculoskeletal: Present: deferred, other (amputation) Psychiatric: mood/affect appropriate Results - Lab Results 01/26/19 08:17 01/26/19 08:17 Most recent lab results Calcium 7.9 mg/dL (8.4-10.2) L 01/26/19 08:17 Magnesium 1.70 mg/dL (1.7-2.3) 01/26/19 08:09 - Image Kidney/bladder ultrasound: other (I reviewed chest x-ray with some increased interstitial markings cardiomegaly without overt edema) Assessment and Plan - Patient Problems (1) Acute kidney injury Current Visit: Yes Status: Acute Plan to address problem: Acute kidney injury Baseline creatinine 1.2 mg/dl Current creatinine 1.8 mg/DL We'll initiate diuretics Etiology of acute kidney injury related with cardiorenal syndrome Obtain urine studies Avoid nephrotoxic medications (2) Acute heart failure Current Visit: Yes Status: Acute Qualifiers: Heart failure type: unspecified Qualified Code(s): I50.9 - Heart failure, unspecified Plan to address problem: Acute congestive heart failure. 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
[2019-01-26] MEDS ORDERED: LASIX IV SCH (18:00)
[2019-01-26] MEDS: CREON DR 12,000 UNITS PO SCH (18:25)
[2019-01-26 19:02] LABS: Creatine Kinase MB 15.4 ng/mL (0.0-4.0)
[2019-01-26] MEDS: LASIX IV SCH (21:35)
[2019-01-26] MEDS ORDERED: HEPARIN 10,000 UNITS/10 ML IV ONE (22:01)
[2019-01-26] MEDS: SODIUM CHLORIDE FLUSH SYRINGE 10 ML IV SCH (23:05)
[2019-01-26] MEDS: HEPARIN/ 0.45% NACL-25,000 UNIT/500 ML 25,000 UNIT/500 ML BAG IV SCH (23:21)
[2019-01-27 00:03] LABS: Hematocrit 27.3 % (35.5-45.6); Hemoglobin 8.9 gm/dl (11.8-15.2)
[2019-01-27 00:14] LABS: INR 1.15 (0.87-1.13)
[2019-01-27 00:37] LABS: Partial Thromboplastin Time 88.4 Sec. (24.2-36.6)
[2019-01-27] MEDS: LASIX IV SCH ×2 (05:34→21:24)
[2019-01-27 06:36] LABS: Basophils % (Auto) 0.7 % (0.0-1.8); Eosinophils # (Auto) 0.3 K/mm3 (0.0-0.4); Eosinophils % (Auto) 5.1 % (0.0-4.3); Hematocrit 25.2 % (35.5-45.6); Hemoglobin 8.4 gm/dl (11.8-15.2); Lymphocytes # (Auto) 1.1 K/mm3 (1.2-5.4); Lymphocytes % (Auto) 20.4 % (13.4-35.0); Mean Corpuscular HGB Conc 33 % (32-34); Mean Corpuscular Volume 82 fl (84-94); Monocytes # (Auto) 0.3 K/mm3 (0.0-0.8); Monocytes % (Auto) 5.9 % (0.0-7.3); Platelet Count 155 K/mm3 (140-440); Red Blood Count 3.09 M/mm3 (3.65-5.03); Red Cell Distribution Width 14.8 % (13.2-15.2)
[2019-01-27 07:40] LABS: Calcium 7.6 mg/dL (8.4-10.2)
[2019-01-27] MEDS: COREG PO SCH ×2 (09:35→21:25)
[2019-01-27] MEDS: BABY ASPIRIN PO SCH (09:35)
[2019-01-27] MEDS: NORVASC PO SCH (09:36)
--- NOTE | 2019-01-27 09:47 | Progress Note ---
Assessment and Plan - Patient Problems (1) Acute kidney injury Current Visit: Yes Status: Acute Plan to address problem: Acute kidney injury Baseline creatinine 1.2 mg/dl Current creatinine 1.8 mg/DL continue diuretics IV lasix 60mg IV BID. Etiology of acute kidney injury related with cardiorenal syndrome Obtain urine studies Avoid nephrotoxic medications (2) Acute heart failure Current Visit: Yes Status: Acute Qualifiers: Heart failure type: unspecified Qualified Code(s): I50.9 - Heart failure, unspecified Plan to address problem: Acute congestive heart failure. 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 We'll initiate medications monitor fingersticks (5) Elevated creatine kinase Current Visit: Yes Status: Acute Plan to address problem: Admitted with elevated creatinine kinase level Denies any stressful exercise Ensure oral intake Also elevated troponin Cardiology Following Trend CK levels will hold IV fluids for not giving volume overload state Subjective Interval history: 53-year-old gentleman with history significant for hypertension admitted with complaints of worsening shortness of breath or significant orthopnea and PND also reports significant extremity edema Patient seen today reports good urine output reports improvement in breathing request double portion of meals due to frequent hypoglycemia. still has edema. Objective - Vital Signs Vital signs: Vital Signs - 12hr 01/26/19 01/26/19 01/26/19 22:20 23:12 23:13 Temperature 98.3 F Pulse Rate 78 78 Pulse Rate [ 80 Apical] Pulse Rate [ 80 From Monitor] Respiratory 18 16 Rate Blood Pressure 134/90 134/90 O2 Sat by Pulse 97 97 Oximetry 01/27/19 01/27/19 01/27/19 03:05 09:35 09:36 Temperature 98.6 F Pulse Rate 75 78 82 Pulse Rate [ Apical] Pulse Rate [ From Monitor] Respiratory 18 Rate Blood Pressure 116/71 135/88 138/86 O2 Sat by Pulse 99 Oximetry 01/27/19 09:38 Temperature Pulse Rate Pulse Rate [ 84 Apical] Pulse Rate [ 84 From Monitor] Respiratory Rate Blood Pressure O2 Sat by Pulse Oximetry - General Appearance General appearance: well-developed, well-nourished EENT: ATNC, PERRL, mucous membranes moist Neck: JVD Respiratory: Present: Decreased Breath Sounds Cardiology: regular, S1S2 Gastrointestinal: normal, normoactive bowel sounds Integumentary: no rash Neurologic: alert and oriented x3 Psychiatric: mood/affect appropriate - Lab 01/27/19 06:05 01/27/19 06:05 Most recent lab results Calcium 7.6 mg/dL (8.4-10.2) L 01/27/19 06:05 Magnesium 1.50 mg/dL (1.7-2.3) L 01/27/19 06:05 Medications & Allergies - Medications Allergies/Adverse Reactions: Allergies No Known Allergies Allergy (Unverified 10/21/18 19:15) Home Medications: Home Medications Medication Instructions Recorded Confirmed Last Taken Type Acetaminophen [Acetaminophen TAB] 650 mg PO Q4H PRN #15 tablet 10/24/18 01/26/19 01/25/19 Rx Insulin NPH/Regular [NovoLIN 70/30] 20 unit SUB-Q BID #100 units 10/24/1801/2601/25/19 Rx Insulin Regular, Human [HumuLIN R] 1 dose SUB-Q ACHS PRN #100 units 10/24/18 01/26/19 01/25/19 Rx Lisinopril [Zestril TAB] 10 mg PO DAILY 01/26/19 01/26/19 01/25/19 History 10 mg amLODIPine [Norvasc] 10 mg PO DAILY 01/26/19 01/26/19 01/25/19 History 10 mg Active Medications: Generic Name Dose Route Start Last Admin Trade Name Amy PRN Reason Stop Dose Admin Acetaminophen 650 mg 01/26/19 11:08 Tylenol PO Q4H PRN Non Cardiac Pain or Temp>100.5 Amlodipine Besylate 10 mg 01/26/19 14:00 01/27/19 09:36 Norvasc PO 10 mg DAILY JAMIE Administration Lipase/Protease/Amylase 6 each 01/26/19 16:30 01/26/19 18:[address] 12,000 Units PO 6 each AC JAMIE Administration Aspirin 81 mg 01/27/19 10:00 01/27/19 09:35 Baby Aspirin PO 81 mg QDAY JAMIE Administration Carvedilol 6.25 mg 01/26/19 15:00 01/27/19 09:35 Coreg PO 6.25 mg BID JAMIE Administration Dextrose 50 ml 01/26/19 11:09 01/26/19 13:03 D50w (25gm) Syringe IV 50 ml PRN PRN Administration Hypoglycemia Furosemide 80 mg 01/26/19 20:00 01/27/19 05:34 Lasix IV 80 mg 0600,1800 JAMIE Administration Hydralazine HCl 10 mg 01/26/19 15:24 Apresoline IV Q4HR PRN Hypertension Heparin Sodium/Sodium Chloride 25,000 unit in 500 mls @ 24 mls/hr 01/26/19 22:00 01/27/19 07:24 Heparin/ 0.45% Nacl-25,000 Unit/500 Ml IV 1,400 units/hr TITR JAMIE 28 mls/hr Titration Protocol 1,200 UNITS/HR Insulin Human Isoph/Insulin Regular 20 unit 01/26/19 22:00 01/26/19 23:04 Humulin 70/30 SUB-Q 20 unit BID JAMIE Administration Insulin Human Lispro 0 unit 01/26/19 11:30 01/26/19 23:04 Humalog SUB-Q 3 unit ACHS JAMIE Administration Protocol Lorazepam 2 mg 01/26/19 11:04 Ativan IV Q1H PRN CIWA-Ar 8-15 Nitroglycerin 0.4 mg 01/26/19 11:04 Nitrostat SL .Q5MIN PRN Chest Pain Ondansetron HCl 4 mg 01/26/19 11:04 Zofran IV Q8H PRN Nausea And Vomiting Sodium Chloride 10 ml 01/26/19 22:00 01/26/19 23:05 Sodium Chloride Flush Syringe 10 Ml IV 10 ml BID JAMIE Administration Sodium Chloride 10 ml 01/26/19 11:04 Sodium Chloride Flush Syringe 10 Ml IV PRN PRN LINE FLUSH
[2019-01-27] MEDS ORDERED: MAGNESIUM SULFATE 2GM/50ML 2 GM/50 ML BAG IV ONE (10:24)
[2019-01-27] MEDS ORDERED: K-DUR PO ONE (10:24)
--- NOTE | 2019-01-27 10:27 | Progress Note ---
Assessment and Plan Cont IV lasix BID per nephrology. Monitor renal indices. Cont coreg and amlodipine. No ACEI/ARB at this time in setting of renal insufficiency. Await echo. Troponin elevation appears c/w NSTEMI type II in setting of HF, renal insufficiency, uncontrolled HTN, anemia, etc. Pt denies any chest pain, ECG with no acute ischemic changes. Cont heparin gtt. Replete K+ and Mg and f/u lytes in AM. Additional recs to follow per hospital course. The patient has been seen in conjunction with Dr. Baeza who agrees with the assessment and plan of care. - Patient Problems (1) Acute heart failure Current Visit: Yes Status: Acute Qualifiers: Heart failure type: unspecified Qualified Code(s): I50.9 - Heart failure, unspecified (2) NSTEMI (non-ST elevated myocardial infarction) Current Visit: Yes Status: Acute (3) Uncontrolled hypertension Current Visit: Yes Status: Chronic (4) Diabetes Current Visit: Yes Status: Chronic (5) History of chronic pancreatitis Current Visit: Yes Status: Chronic (6) History of ETOH abuse Current Visit: Yes Status: Chronic (7) PVD (peripheral vascular disease) Current Visit: Yes Status: Chronic (8) Anemia Current Visit: Yes Status: Acute (9) ANYA (acute kidney injury) Current Visit: Yes Status: Acute Subjective Date of service: 01/27/19 Principal diagnosis: HF Interval history: pt resting comfortably in bed, states he is feeling a little better, BLE minimally improved. Objective Last Vital Signs Temp 98.6 F 01/27/19 03:05 Pulse 84 01/27/19 09:38 Resp 18 01/27/19 03:05 BP 138/86 01/27/19 09:36 Pulse Ox 99 01/27/19 03:05 - Physical Examination General: No Apparent Distress HEENT: Positive: PERRL, Normocephaly, Mucus Membranes Moist Neck: Positive: neck supple, JVD/HJR Cardiac: Positive: Reg Rate and Rhythm, S1/S2 Lungs: Positive: Decreased Breath Sounds Abdomen: Negative: Tender Skin: Negative: Rash Musculoskeletal: other (partial left foot amputation ) Extremities: Present: +3 Edema (BLE ) - Labs and Meds Cardiac Enzymes 01/26/19 01/26/19 01/26/19 Range/Units 08:09 13:44 17:54 AST 45 H (5-40) units/L CK-MB (CK-2) 14.8 H 15.4 H (0.0-4.0) ng/mL Coagulation 01/26/19 01/26/19 Range/Units 10:38 23:17 PT 14.4 15.4 H (12.2-14.9) Sec. INR 1.05 1.15 H (0.87-1.13) APTT 88.4 H* (24.2-36.6) Sec. CBC 01/26/19 01/27/19 Range/Units 23:17 06:05 WBC 5.5 (4.5-11.0) K/mm3 RBC 3.09 L (3.65-5.03) M/mm3 Hgb 8.9 L 8.4 L (11.8-15.2) gm/dl Hct 27.3 L 25.2 L (35.5-45.6) % Plt Count 191 155 (140-440) K/mm3 Lymph # 1.1 L (1.2-5.4) K/mm3 [place] # 0.3 (0.0-0.8) K/mm3 Eos # 0.3 (0.0-0.4) K/mm3 Baso # 0.0 (0.0-0.1) K/mm3 Comprehensive Metabolic Panel 01/26/19 01/27/19 Range/Units 08:09 06:05 Sodium 143 (137-145) mmol/L Potassium 3.1 L (3.6-5.0) mmol/L Chloride 111.6 H (98-107) mmol/L Carbon Dioxide 22 (22-30) mmol/L BUN 23 H (9-20) mg/dL Creatinine 1.8 H (0.8-1.5) mg/dL Glucose 70 L (75-100) mg/dL Calcium 7.6 L (8.4-10.2) mg/dL Direct Bilirubin < 0.2 (0-0.2) mg/dL Indirect Bilirubin 0.0 mg/dL AST 45 H (5-40) units/L ALT 49 (7-56) units/L Alkaline Phosphatase 210 H (35-129) units/L Total Protein 5.4 L (6.3-8.2) g/dL Albumin 2.8 L (3.9-5) g/dL - Imaging and Cardiology EKG: report reviewed, image reviewed Echo: pending - Telemetry EKG Rhythm: Sinus Rhythm - EKG Sinus rhythms and dysrhythmias: sinus rhythm
--- NOTE | 2019-01-27 10:42 | Progress Note ---
Assessment and Plan Assessment and plan: --Hypokalemia; replace with KCl, monitor potassium levels --Hypomagnesemia; IV mag sulfate, monitor electrolytes --Acute systolic congestive heart failure ,unknown ejection fraction On anti-failure medications, IV Lasix and beta blockers Input output monitoring, low sodium diet fluid restriction Cardiology is following the patient, follow echocardiogram for LV function --Non-ST elevated CT type II; Management per cardiology --Acute kidney injury secondary to ATN Monitor renal function, avoid nephrotoxins, nephrology following --Hypertensive urgency; present on admission The pressure well controlled, continue current antihypertensives --Diabetes mellitus; Well-controlled, Accu-Chek sliding scale coverage and ADA diet and insulin Avoid hypoglycemic episodes, diabetic diet, diabetic education --Peripheral vascular disease; 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 --Prior history of EtOH dependence; patient advised to quit alcohol intake --Chronic pancreatitis; stable --Anemia of chronic disease; monitor H&H transfuse as needed Iron supplements --Medical noncompliance; strongly advised to comply with medications diet and follow-up visits Patient verbalized understanding We'll monitor the patient closely and adjust management as needed History Interval history: Patient seen and examined medical records reviewed No new events reported by the nursing staff Patient feels slightly better Vital signs noted Hospitalist Physical - Constitutional Vitals: Temp Pulse Resp BP Pulse Ox 98.6 F 84 18 138/86 97 01/27/19 03:05 01/27/19 09:38 01/27/19 03:05 01/27/19 09:36 01/27/19 10:35 General appearance: Present: no acute distress, well-nourished, obese - EENT Eyes: Present: PERRL, EOM intact - Neck Neck: Present: supple, normal ROM - Respiratory Respiratory effort: normal Respiratory: bilateral: diminished, rales, negative: rhonchi, wheezing - Cardiovascular Rhythm: regular Heart Sounds: Present: S1 & S2 - Extremities Extremities: no ischemia Extremity abnormal: edema - Abdominal General gastrointestinal: soft, non-tender, non-distended, normal bowel sounds - Integumentary Integumentary: Present: clear, warm - Psychiatric Psychiatric: appropriate mood/affect, cooperative - Neurologic Neurologic: CNII-XII intact, moves all extremities Results - Labs CBC & Chem 7: 01/27/19 06:05 01/27/19 06:05 Labs: Laboratory Last Values WBC 5.5 K/mm3 (4.5-11.0) 01/27/19 06:05 RBC 3.09 M/mm3 (3.65-5.03) L 01/27/19 06:05 Hgb 8.4 gm/dl (11.8-15.2) L 01/27/19 06:05 Hct 25.2 % (35.5-45.6) L 01/27/19 06:05 MCV 82 fl (84-94) L 01/27/19 06:05 MCH 27 pg (28-32) L 01/27/19 06:05 MCHC 33 % (32-34) 01/27/19 06:05 RDW 14.8 % (13.2-15.2) 01/27/19 06:05 Plt Count 155 K/mm3 (140-440) 01/27/19 06:05 Lymph % (Auto) 20.4 % (13.4-35.0) 01/27/19 06:05 [place] % (Auto) 5.9 % (0.0-7.3) 01/27/19 06:05 Eos % (Auto) 5.1 % (0.0-4.3) H 01/27/19 06:05 Baso % (Auto) 0.7 % (0.0-1.8) 01/27/19 06:05 Lymph # 1.1 K/mm3 (1.2-5.4) L 01/27/19 06:05 [place] # 0.3 K/mm3 (0.0-0.8) 01/27/19 06:05 Eos # 0.3 K/mm3 (0.0-0.4) 01/27/19 06:05 Baso # 0.0 K/mm3 (0.0-0.1) 01/27/19 06:05 Seg Neutrophils % 67.9 % (40.0-70.0) 01/27/19 06:05 Seg Neutrophils # 3.8 K/mm3 (1.8-7.7) 01/27/19 06:05 PT 15.4 Sec. (12.2-14.9) H 01/26/19 23:17 INR 1.15 (0.87-1.13) H 01/26/19 23:17 APTT 88.4 Sec. (24.2-36.6) H* 01/26/19 23:17 Heparin Anti-Xa Level 0.10 U.I./ml (0.3-0.7) L 01/27/19 06:12 Sodium 143 mmol/L (137-145) 01/27/19 06:05 Potassium 3.1 mmol/L (3.6-5.0) L 01/27/19 06:05 Chloride 111.6 mmol/L (98-107) H 01/27/19 06:05 Carbon Dioxide 22 mmol/L (22-30) 01/27/19 06:05 13 mmol/L 01/27/19 06:05 BUN 23 mg/dL (9-20) H 01/27/19 06:05 1.8 mg/dL (0.8-1.5) H 01/27/19 06:05 Estimated GFR 48 ml/min 01/27/19 06:05 13 % 01/27/19 06:05 Glucose 70 mg/dL (75-100) L 01/27/19 06:05 POC Glucose 111 (70-105) H 01/27/19 09:14 Calcium 7.6 mg/dL (8.4-10.2) L 01/27/19 06:05 Magnesium 1.50 mg/dL (1.7-2.3) L 01/27/19 06:05 0.20 mg/dL (0.1-1.2) 01/26/19 08:09 < 0.2 mg/dL (0-0.2) 01/26/19 08:09 0.0 mg/dL 01/26/19 08:09 AST 45 units/L (5-40) H 01/26/19 08:09 ALT 49 units/L (7-56) 01/26/19 08:09 210 units/L (35-129) H 01/26/19 08:09 1669 units/L (55-170) H 01/26/19 17:54 CK-MB (CK-2) 15.4 ng/mL (0.0-4.0) H 01/26/19 17:54 CK-MB (CK-2) Rel Index 0.9 (0-4) 01/26/19 17:54 0.282 ng/mL (0.00-0.029) H* 01/26/19 17:54 NT-Pro-B Natriuret Pep 60112 pg/mL (0-900) H 01/27/19 07:15 5.4 g/dL (6.3-8.2) L 01/26/19 08:09 2.8 g/dL (3.9-5) L 01/26/19 08:09 1.1 % 01/26/19 08:09 Triglycerides 44 mg/dL (2-149) 01/26/19 08:17 Cholesterol 154 mg/dL (50-199) 01/26/19 08:17 72 mg/dL (50-130) 01/26/19 08:17 78 mg/dL (40-59) H 01/26/19 08:17 1.97 % 01/26/19 08:17 Active Medications - Current Medications Current Medications: Generic Name Dose Route Start Last Admin Trade Name Freq PRN Reason Stop Dose Admin Acetaminophen 650 mg 01/26/19 11:08 Tylenol PO Q4H PRN Non Cardiac Pain or Temp>100.5 Amlodipine Besylate 10 mg 01/26/19 14:00 01/27/19 09:36 Norvasc PO 10 mg DAILY JAMIE Administration Lipase/Protease/Amylase 6 each 01/26/19 16:30 01/26/19 18:[address] 12,000 Units PO 6 each AC JAMIE Administration Aspirin 81 mg 01/27/19 10:00 01/27/19 09:35 Baby Aspirin PO 81 mg QDAY JAMIE Administration Carvedilol 6.25 mg 01/26/19 15:00 01/27/19 09:35 Coreg PO 6.25 mg BID JAMIE Administration Dextrose 50 ml 01/26/19 11:09 01/26/19 13:03 D50w (25gm) Syringe IV 50 ml PRN PRN Administration Hypoglycemia Furosemide 60 mg 01/27/19 20:00 Lasix IV 0900,2000 JAMIE Hydralazine HCl 10 mg 01/26/19 15:24 Apresoline IV Q4HR PRN Hypertension Heparin Sodium/Sodium Chloride 25,000 unit in 500 mls @ 24 mls/hr 01/26/19 22:00 01/27/19 07:24 Heparin/ 0.45% Nacl-25,000 Unit/500 Ml IV 1,400 units/hr TITR JAMIE 28 mls/hr Titration Protocol 1,200 UNITS/HR Magnesium Sulfate 2 gm in 50 mls @ 25 mls/hr 01/27/19 10:24 Magnesium Sulfate 2gm/50ml IV 01/27/19 12:23 ONCE ONE Insulin Human Isoph/Insulin Regular 20 unit 01/26/19 22:00 01/26/19 23:04 Humulin 70/30 SUB-Q 20 unit BID JAMIE Administration Insulin Human Lispro 0 unit 01/26/19 11:30 01/26/19 23:04 Humalog SUB-Q 3 unit ACHS JAMIE Administration Protocol Lorazepam 2 mg 01/26/19 11:04 Ativan IV Q1H PRN CIWA-Ar 8-15 Nitroglycerin 0.4 mg 01/26/19 11:04 Nitrostat SL .Q5MIN PRN Chest Pain Ondansetron HCl 4 mg 01/26/19 11:04 Zofran IV Q8H PRN Nausea And Vomiting Potassium Chloride 40 meq 01/27/19 10:24 K-Dur PO 01/27/19 10:25 ONCE ONE Sodium Chloride 10 ml 01/26/19 22:00 01/26/19 23:05 Sodium Chloride Flush Syringe 10 Ml IV 10 ml BID JAMIE Administration Sodium Chloride 10 ml 01/26/19 11:04 Sodium Chloride Flush Syringe 10 Ml IV PRN PRN LINE FLUSH
[2019-01-27] MEDS: HumaLOG SUB-Q SCH ×3 (16:30→21:24)
[2019-01-27] MEDS: CREON DR 12,000 UNITS PO SCH ×2 (17:30→17:31)
[2019-01-27] MEDS: SODIUM CHLORIDE FLUSH SYRINGE 10 ML IV SCH ×2 (17:31→21:26)
[2019-01-27] MEDS ORDERED: LASIX IV SCH (20:00)
[2019-01-27] MEDS: AMBIEN PO PRN (23:07)
[2019-01-28] MEDS: HEPARIN/ 0.45% NACL-25,000 UNIT/500 ML 25,000 UNIT/500 ML BAG IV SCH (00:10)
[2019-01-28 07:18] LABS: Hematocrit 24.6 % (35.5-45.6); Hemoglobin 8.1 gm/dl (11.8-15.2)
[2019-01-28 07:29] LABS: Calcium 7.3 mg/dL (8.4-10.2)
[2019-01-28] MEDS: LASIX IV SCH (09:14)
[2019-01-28] MEDS: CREON DR 12,000 UNITS PO SCH ×3 (09:15→16:35)
[2019-01-28] MEDS: BABY ASPIRIN PO SCH (09:15)
[2019-01-28] MEDS: NORVASC PO SCH (09:15)
[2019-01-28] MEDS: COREG PO SCH ×2 (09:15→22:02)
[2019-01-28] MEDS: HumaLOG SUB-Q SCH ×4 (09:15→22:03)
[2019-01-28] MEDS: SODIUM CHLORIDE FLUSH SYRINGE 10 ML IV SCH ×2 (09:16→22:03)
--- NOTE | 2019-01-28 10:45 | Progress Note ---
Assessment and Plan Serum Cr elevated, diuretics held. Monitor renal indices and follow nephrology recs. Cont coreg and amlodipine. No ACEI/ARB at this time in setting of renal insufficiency. Echo reviewed - EF 45-50%, mild LVH, restrictive diastolic filling, LA mildly dilated, RV mod dilated, RV systolic function mildly reduced, RA mildly dilated, trace MR, mild TR, RVSP 56mmHg, small pericardial effusion that does not appear to be hemodynamically significant. Troponin elevation appears c/w NSTEMI type II in setting of HF, renal insufficiency, uncontrolled HTN, anemia, etc. Pt denies any chest pain, ECG with no acute ischemic changes. Replete K+. Plan for lexiscan MPI stress test in AM. NPO after MN. The patient has been seen in conjunction with Dr. Baeza who agrees with the assessment and plan of care. - Patient Problems (1) Acute HFrEF (heart failure with reduced ejection fraction) Current Visit: Yes Status: Acute (2) NSTEMI (non-ST elevated myocardial infarction) Current Visit: Yes Status: Acute Plan to address problem: type II (3) Uncontrolled hypertension Current Visit: Yes Status: Chronic (4) Diabetes Current Visit: Yes Status: Chronic (5) History of chronic pancreatitis Current Visit: Yes Status: Chronic (6) History of ETOH abuse Current Visit: Yes Status: Chronic (7) PVD (peripheral vascular disease) Current Visit: Yes Status: Chronic (8) Anemia Current Visit: Yes Status: Acute (9) ANYA (acute kidney injury) Current Visit: Yes Status: Acute Subjective Date of service: 01/28/19 Principal diagnosis: HF Interval history: pt resting comfortably in bed, states he is feeling better, BLE improving. in SR on tele. Objective Last Vital Signs Temp 98.3 F 01/28/19 08:32 Pulse 72 01/28/19 08:32 Resp 16 01/28/19 08:32 BP 125/78 01/28/19 08:32 Pulse Ox 99 01/28/19 08:32 - Physical Examination General: No Apparent Distress HEENT: Positive: PERRL, Normocephaly, Mucus Membranes Moist Neck: Positive: neck supple, JVD/HJR Cardiac: Positive: Reg Rate and Rhythm, S1/S2 Lungs: Positive: Decreased Breath Sounds Abdomen: Negative: Tender Skin: Negative: Rash Musculoskeletal: other (partial left foot amputation ) Extremities: Present: +3 Edema (BLE ) - Labs and Meds CBC 01/28/19 Range/Units 04:56 Hgb 8.1 L (11.8-15.2) gm/dl Hct 24.6 L (35.5-45.6) % Plt Count 149 (140-440) K/mm3 Comprehensive Metabolic Panel 01/28/19 Range/Units 04:56 Sodium 143 (137-145) mmol/L Potassium 3.3 L (3.6-5.0) mmol/L Chloride 108.8 H (98-107) mmol/L Carbon Dioxide 22 (22-30) mmol/L BUN 25 H (9-20) mg/dL Creatinine 1.9 H (0.8-1.5) mg/dL Glucose 233 H (75-100) mg/dL Calcium 7.3 L (8.4-10.2) mg/dL - Imaging and Cardiology EKG: report reviewed, image reviewed Echo: pending - EKG Sinus rhythms and dysrhythmias: sinus rhythm
[2019-01-28] MEDS ORDERED: K-DUR PO ONE (12:00)
--- NOTE | 2019-01-28 16:04 | Progress Note ---
Assessment and Plan - Patient Problems (1) Acute kidney injury Current Visit: Yes Status: Acute Plan to address problem: Acute kidney injury worsening Baseline creatinine 1.2 mg/dl Current creatinine 1.9 mg/DL will hold further diuresis today Given associated hypoalbuminemia and longstanding Diabetes and edema likely has a component of nephrotic syndrome Will send serologies as well Urine studies ordered Will give Albumin 25g IV followed by IV lasix 40mg IV daily. Etiology of acute kidney injury related with cardiorenal syndrome with under lying DM nephropathy. Avoid nephrotoxic medications (2) Acute heart failure Current Visit: Yes Status: Acute Qualifiers: Heart failure type: unspecified Qualified Code(s): I50.9 - Heart failure, unspecified Plan to address problem: Acute congestive heart failure. impaired diastolic function with restrictive pattern on Echocardiogram with re duced LVEF and dilated Cardiac chambers. Significant lower extremity edema distended neck veins Will decrease diuretics to 40 mg IV day with albumin to faciliatate delivery given restrictive pattern Will seen immunofixation as well to exclude other possiblities of CHF. 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 We'll initiate medications monitor fingersticks (5) Elevated creatine kinase Current Visit: Yes Status: Acute Plan to address problem: Admitted with elevated creatinine kinase level Denies any stressful exercise Ensure oral intake Also elevated troponin Cardiology Following Trend CK levels will hold IV fluids for given volume overload state Subjective Principal diagnosis: HF Interval history: 53-year-old gentleman with history significant for hypertension admitted with complaints of worsening shortness of breath or significant orthopnea and PND also reports significant extremity edema Patient seen today reports improvement in breathing still has edema. denies nausea, vomitting , requests pillow for leg elevation Objective - Vital Signs Vital signs: Vital Signs - 12hr 01/28/19 01/28/19 01/28/19 04:00 08:32 12:24 Temperature 98.3 F 98.4 F Pulse Rate 70 72 72 Respiratory 16 16 Rate Blood Pressure 125/78 124/78 O2 Sat by Pulse 99 99 Oximetry - General Appearance General appearance: well-developed, well-nourished EENT: ATNC, PERRL, mucous membranes moist Neck: JVD Respiratory: Present: Decreased Breath Sounds Cardiology: regular, S1S2, other (grade 2-3 edema. ) Gastrointestinal: normal, normoactive bowel sounds Integumentary: no rash Neurologic: no focal deficit, alert and oriented x3 Musculoskeletal: deferred Psychiatric: mood/affect appropriate - Lab 01/28/19 04:56 01/28/19 04:56 Most recent lab results Calcium 7.3 mg/dL (8.4-10.2) L 01/28/19 04:56 Phosphorus 4.10 mg/dL (2.5-4.5) 01/28/19 04:56 Magnesium 1.70 mg/dL (1.7-2.3) 01/28/19 04:56 Medications & Allergies - Medications Allergies/Adverse Reactions: Allergies No Known Allergies Allergy (Unverified 10/21/18 19:15) Home Medications: Home Medications Medication Instructions Recorded Confirmed Last Taken Type Acetaminophen [Acetaminophen TAB] 650 mg PO Q4H PRN #15 tablet 10/24/18 01/26/19 01/25/19 Rx Insulin NPH/Regular [NovoLIN 70/30] 20 unit SUB-Q BID #100 units 10/24/18 01/26/19 01/25/19 Rx Insulin Regular, Human [HumuLIN R] 1 dose SUB-Q ACHS PRN #100 units 10/24/18 01/26/19 01/25/19 Rx Lisinopril [Zestril TAB] 10 mg PO DAILY 01/26/19 01/26/19 01/25/19 History 10 mg amLODIPine [Norvasc] 10 mg PO DAILY 01/26/19 01/26/19 01/25/19 History 10 mg Active Medications: Generic Name Dose Route Start Last Admin Trade Name Freq PRN Reason Stop Dose Admin Acetaminophen 650 mg 01/26/19 11:08 Tylenol PO Q4H PRN Non Cardiac Pain or Temp>100.5 Albumin Human 25 gm 01/29/19 08:00 Alburx 25% (Albumin) IV Q24H JAMIE Amlodipine Besylate 10 mg 01/26/19 14:00 01/28/19 09:15 Norvasc PO 10 mg DAILY JAMIE Administration Lipase/Protease/Amylase 6 each 01/26/19 16:30 01/28/19 12:[address] 12,000 Units PO 6 each AC JAMIE Administration Aspirin 81 mg 01/27/19 10:00 01/28/19 09:15 Baby Aspirin PO 81 mg QDAY JAMIE Administration Carvedilol 6.25 mg 01/26/19 15:00 01/28/19 09:15 Coreg PO 6.25 mg BID JAMIE Administration Dextrose 50 ml 01/26/19 11:09 01/26/19 13:03 D50w (25gm) Syringe IV 50 ml PRN PRN Administration Hypoglycemia Furosemide 40 mg 01/29/19 10:00 Lasix IV QDAY JAMIE Guaifenesin 10 ml 01/27/19 14:32 Guaifenesin Dm Syrup PO Q4H PRN Cough Hydralazine HCl 10 mg 01/26/19 15:24 Apresoline IV Q4HR PRN Hypertension Insulin Human Isoph/Insulin Regular 20 unit 01/26/19 22:00 01/28/19 09:15 Humulin 70/30 SUB-Q 20 unit BID JAMIE Administration Insulin Human Lispro 0 unit 01/26/19 11:30 01/28/19 12:52 Humalog SUB-Q Not Given ACHS [facility] Protocol Lorazepam 2 mg 01/26/19 11:04 Ativan IV Q1H PRN CIWA-Ar 8-15 Nitroglycerin 0.4 mg 01/26/19 11:04 Nitrostat SL .Q5MIN PRN Chest Pain Ondansetron HCl 4 mg 01/26/19 11:04 Zofran IV Q8H PRN Nausea And Vomiting Sodium Chloride 10 ml 01/26/19 22:00 01/28/19 09:16 Sodium Chloride Flush Syringe 10 Ml IV 10 ml BID JAMIE Administration Sodium Chloride 10 ml 01/26/19 11:04 Sodium Chloride Flush Syringe 10 Ml IV PRN PRN LINE FLUSH Zolpidem Tartrate 5 mg 01/27/19 22:00 01/27/19 23:07 Ambien PO 5 mg QHS PRN Administration Sleep
--- NOTE | 2019-01-28 19:34 | Progress Note ---
Assessment and Plan Assessment and plan: --Hypokalemia; replace with KCl, monitor potassium levels --Hypomagnesemia; corrected --Acute systolic congestive heart failure ,unknown ejection fraction On anti-failure medications, IV Lasix and beta blockers Input output monitoring, low sodium diet fluid restriction Cardiology is following the patient, follow echocardiogram for LV function --Non-ST elevated [place] type II; Management per cardiology, possible stress test tomorrow --Acute kidney injury secondary to ATN Monitor renal function, avoid nephrotoxins, nephrology following --Hypertensive urgency; present on admission The pressure well controlled, continue current antihypertensives --Diabetes mellitus; Well-controlled, Accu-Chek sliding scale coverage and ADA diet and insulin Avoid hypoglycemic episodes, diabetic diet, diabetic education --Peripheral vascular disease; 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 --Prior history of EtOH dependence; patient advised to quit alcohol intake --Chronic pancreatitis; stable --Anemia of chronic disease; monitor H&H transfuse as needed Iron supplements --Medical noncompliance; strongly advised to comply with medications diet and follow-up visits Patient verbalized understanding We'll monitor the patient closely and adjust management as needed Plan of care reviewed with the patient and his nurse Consults and recommendations noted and appreciated History Interval history: Patient seen and examined medical records reviewed Patient feels slightly better no new complaints Vital signs noted Hospitalist Physical - Constitutional Vitals: Temp Pulse Resp BP Pulse Ox 98.7 F 76 16 125/79 98 01/28/19 17:40 01/28/19 17:40 01/28/19 17:40 01/28/19 17:40 01/28/19 17:40 General appearance: Present: no acute distress, well-nourished - EENT Eyes: Present: PERRL, EOM intact - Neck Neck: Present: supple, normal ROM - Respiratory Respiratory effort: normal Respiratory: bilateral: diminished, rales, negative: rhonchi, wheezing - Cardiovascular Rhythm: regular Heart Sounds: Present: S1 & S2 - Extremities Extremities: no ischemia, No edema - Abdominal General gastrointestinal: soft, non-tender, non-distended, normal bowel sounds - Integumentary Integumentary: Present: clear, warm - Psychiatric Psychiatric: appropriate mood/affect, cooperative - Neurologic Neurologic: CNII-XII intact, moves all extremities Results - Labs CBC & Chem 7: 01/28/19 04:56 01/28/19 04:56 Labs: Laboratory Last Values WBC 5.5 K/mm3 (4.5-11.0) 01/27/19 06:05 RBC 3.09 M/mm3 (3.65-5.03) L 01/27/19 06:05 Hgb 8.1 gm/dl (11.8-15.2) L 01/28/19 04:56 Hct 24.6 % (35.5-45.6) L 01/28/19 04:56 MCV 82 fl (84-94) L 01/27/19 06:05 MCH 27 pg (28-32) L 01/27/19 06:05 MCHC 33 % (32-34) 01/27/19 06:05 RDW 14.8 % (13.2-15.2) 01/27/19 06:05 Plt Count 149 K/mm3 (140-440) 01/28/19 04:56 Lymph % (Auto) 20.4 % (13.4-35.0) 01/27/19 06:05 [place] % (Auto) 5.9 % (0.0-7.3) 01/27/19 06:05 Eos % (Auto) 5.1 % (0.0-4.3) H 01/27/19 06:05 Baso % (Auto) 0.7 % (0.0-1.8) 01/27/19 06:05 Lymph # 1.1 K/mm3 (1.2-5.4) L 01/27/19 06:05 [place] # 0.3 K/mm3 (0.0-0.8) 01/27/19 06:05 Eos # 0.3 K/mm3 (0.0-0.4) 01/27/19 06:05 Baso # 0.0 K/mm3 (0.0-0.1) 01/27/19 06:05 Seg Neutrophils % 67.9 % (40.0-70.0) 01/27/19 06:05 Seg Neutrophils # 3.8 K/mm3 (1.8-7.7) 01/27/19 06:05 PT 15.4 Sec. (12.2-14.9) H 01/26/19 23:17 INR 1.15 (0.87-1.13) H 01/26/19 23:17 APTT 88.4 Sec. (24.2-36.6) H* 01/26/19 23:17 Heparin Anti-Xa Level 0.33 U.I./ml (0.3-0.7) 01/28/19 12:28 Sodium 143 mmol/L (137-145) 01/28/19 04:56 Potassium 3.3 mmol/L (3.6-5.0) L 01/28/19 04:56 Chloride 108.8 mmol/L (98-107) H 01/28/19 04:56 Carbon Dioxide 22 mmol/L (22-30) 01/28/19 04:56 16 mmol/L 01/28/19 04:56 BUN 25 mg/dL (9-20) H 01/28/19 04:56 1.9 mg/dL (0.8-1.5) H 01/28/19 04:56 Estimated GFR 45 ml/min 01/28/19 04:56 13 % 01/28/19 04:56 Glucose 233 mg/dL (75-100) H 01/28/19 04:56 POC Glucose 151 (70-105) H 01/28/19 12:30 Calcium 7.3 mg/dL (8.4-10.2) L 01/28/19 04:56 Phosphorus 4.10 mg/dL (2.5-4.5) 01/28/19 04:56 Magnesium 1.70 mg/dL (1.7-2.3) 01/28/19 04:56 0.20 mg/dL (0.1-1.2) 01/26/19 08:09 < 0.2 mg/dL (0-0.2) 01/26/19 08:09 0.0 mg/dL 01/26/19 08:09 AST 45 units/L (5-40) H 01/26/19 08:09 ALT 49 units/L (7-56) 01/26/19 08:09 210 units/L (35-129) H 01/26/19 08:09 1193 units/L (55-170) H 01/28/19 04:56 CK-MB (CK-2) 15.4 ng/mL (0.0-4.0) H 01/26/19 17:54 CK-MB (CK-2) Rel Index 0.9 (0-4) 01/26/19 17:54 0.282 ng/mL (0.00-0.029) H* 01/26/19 17:54 NT-Pro-B Natriuret Pep 19882 pg/mL (0-900) H 01/28/19 12:28 5.4 g/dL (6.3-8.2) L 01/26/19 08:09 2.8 g/dL (3.9-5) L 01/26/19 08:09 1.1 % 01/26/19 08:09 Triglycerides 44 mg/dL (2-149) 01/26/19 08:17 Cholesterol 154 mg/dL (50-199) 01/26/19 08:17 72 mg/dL (50-130) 01/26/19 08:17 78 mg/dL (40-59) H 01/26/19 08:17 1.97 % 01/26/19 08:17 Active Medications - Current Medications Current Medications: Generic Name Dose Route Start Last Admin Trade Name Freq PRN Reason Stop Dose Admin Acetaminophen 650 mg 01/26/19 11:08 Tylenol PO Q4H PRN Non Cardiac Pain or Temp>100.5 Albumin Human 25 gm 01/29/19 08:00 Alburx 25% (Albumin) IV Q24H JAMIE Amlodipine Besylate 10 mg 01/26/19 14:00 01/28/19 09:15 Norvasc PO 10 mg DAILY JAMIE Administration Lipase/Protease/Amylase 6 each 01/26/19 16:30 01/28/19 16:35 Alex Espinoza 12,000 Units PO 6 each AC JAMIE Administration Aspirin 81 mg 01/27/19 10:00 01/28/19 09:15 Baby Aspirin PO 81 mg QDAY JAMIE Administration Carvedilol 6.25 mg 01/26/19 15:00 01/28/19 09:15 Coreg PO 6.25 mg BID JAMIE Administration Dextrose 50 ml 01/26/19 11:09 01/26/19 13:03 D50w (25gm) Syringe IV 50 ml PRN PRN Administration Hypoglycemia Furosemide 40 mg 01/29/19 10:00 Lasix IV QDAY JAMIE Guaifenesin 10 ml 01/27/19 14:32 Guaifenesin Dm Syrup PO Q4H PRN Cough Hydralazine HCl 10 mg 01/26/19 15:24 Apresoline IV Q4HR PRN Hypertension Insulin Human Isoph/Insulin Regular 20 unit 01/26/19 22:00 01/28/19 09:15 Humulin 70/30 SUB-Q 20 unit BID JAMIE Administration Insulin Human Lispro 0 unit 01/26/19 11:30 01/28/19 12:52 Humalog SUB-Q Not Given ACHS [facility] Protocol Lorazepam 2 mg 01/26/19 11:04 Ativan IV Q1H PRN CIWA-Ar 8-15 Nitroglycerin 0.4 mg 01/26/19 11:04 Nitrostat SL .Q5MIN PRN Chest Pain Ondansetron HCl 4 mg 01/26/19 11:04 Zofran IV Q8H PRN Nausea And Vomiting Sodium Chloride 10 ml 01/26/19 22:00 01/28/19 09:16 Sodium Chloride Flush Syringe 10 Ml IV 10 ml BID JAMIE Administration Sodium Chloride 10 ml 01/26/19 11:04 Sodium Chloride Flush Syringe 10 Ml IV PRN PRN LINE FLUSH Zolpidem Tartrate 5 mg 01/27/19 22:00 01/27/19 23:07 Ambien PO 5 mg QHS PRN Administration Sleep Nutrition/Malnutrition Assess - Dietary Evaluation Nutrition/Malnutrition Findings: Nutrition Notes Start: 01/27/19 15:49 Freq: Status: Active Protocol: Document 01/28/19 16:26 RM (Rec: 01/28/19 16:30 RM [id number]) Nutrition Notes Initial or Follow up Brief Note Current Diagnosis Heart Failure Other Pertinent Diagnosis PVD, Chronic pancreatitis, Medical noncompliance, R foot amputation Current Diet Renal, Cardiac Labs/Tests Reviewed Pertinent Medications Lasix Height 5 ft 10 in Weight 92.5 kg Usual Body Weight 81.82 kg [place] Body Weight (kg) 75.45 BMI 29.2 Subjective/Other Information 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 Stated that he eats all of his meals here and requested more food. Noted lunch at bedside w/100% eaten. Residential Sales Manager agreed to provide double portion of protein. Pt stated that his UBW was 180 lbs 1 month ago. No temporal or orbital wasting . Pt declined DM diet education. Burn Absent Trauma Absent Nutrition Intervention Change Diet Order: Renal,Cardiac w/double protein Revisit per MD consult or patient Sign Off request:
[2019-01-28] MEDS: AMBIEN PO PRN (23:27)
[2019-01-29] MEDS ORDERED: LEXISCAN IV ONE ×2 (08:14→08:16)
[2019-01-29 08:33] LABS: Calcium 7.7 mg/dL (8.4-10.2)
--- NOTE | 2019-01-29 11:11 | Progress Note ---
Assessment and Plan S/p lexiscan MPI stress test this morning which was negative for significant ischemia, EF 44%. Serum Cr trending upwards, cont diuresis per nephrology and monitor renal indices. Cont coreg and amlodipine. No ACEI/ARB at this time in setting of renal insufficiency. The patient has been seen in conjunction with Dr. Baeza who agrees with the assessment and plan of care. - Patient Problems (1) Acute HFrEF (heart failure with reduced ejection fraction) Current Visit: Yes Status: Acute (2) NSTEMI (non-ST elevated myocardial infarction) Current Visit: Yes Status: Acute (3) Uncontrolled hypertension Current Visit: Yes Status: Chronic (4) Diabetes Current Visit: Yes Status: Chronic (5) History of chronic pancreatitis Current Visit: Yes Status: Chronic (6) History of ETOH abuse Current Visit: Yes Status: Chronic (7) PVD (peripheral vascular disease) Current Visit: Yes Status: Chronic (8) Anemia Current Visit: Yes Status: Acute (9) ANYA (acute kidney injury) Current Visit: Yes Status: Acute Subjective Date of service: 01/29/19 Principal diagnosis: HF Interval history: pt for stress test, no current complaints. Objective Last Vital Signs Temp 97.9 F 01/29/19 04:11 Pulse 80 01/29/19 04:11 Resp 20 01/29/19 04:11 BP 123/75 01/29/19 08:43 Pulse Ox 98 01/29/19 04:11 - Physical Examination General: No Apparent Distress HEENT: Positive: PERRL, Normocephaly, Mucus Membranes Moist Neck: Positive: neck supple, JVD/HJR Cardiac: Positive: Reg Rate and Rhythm, S1/S2 Lungs: Positive: Decreased Breath Sounds Abdomen: Negative: Tender Skin: Negative: Rash Musculoskeletal: other (partial left foot amputation ) Extremities: Present: +2 Edema - Labs and Meds Comprehensive Metabolic Panel 01/29/19 Range/Units 07:02 Sodium 141 (137-145) mmol/L Potassium 3.8 (3.6-5.0) mmol/L Chloride 107.6 H (98-107) mmol/L Carbon Dioxide 22 (22-30) mmol/L BUN 30 H (9-20) mg/dL Creatinine 2.1 H (0.8-1.5) mg/dL Glucose 107 H (75-100) mg/dL Calcium 7.7 L (8.4-10.2) mg/dL - Imaging and Cardiology EKG: report reviewed, image reviewed Echo: report reviewed (EF 45-50%, mild LVH, restrictive diastolic filling, LA mildly dilated, RV mod dilated, RV systolic function mildly reduced, RA mildly dilated, trace MR, mild TR, RVSP 56mmHg, small pericardial effusion that does not appear to be hemodynamically significant. ) - Telemetry EKG Rhythm: Sinus Rhythm - EKG Sinus rhythms and dysrhythmias: sinus rhythm
[2019-01-29] MEDS: CREON DR 12,000 UNITS PO SCH ×3 (11:33→17:29)
[2019-01-29] MEDS: NORVASC PO SCH (11:33)
[2019-01-29] MEDS: HumaLOG SUB-Q SCH ×4 (11:34→21:42)
[2019-01-29] MEDS: BABY ASPIRIN PO SCH (11:34)
[2019-01-29] MEDS: LASIX IV SCH (11:35)
[2019-01-29] MEDS: SODIUM CHLORIDE FLUSH SYRINGE 10 ML IV SCH ×2 (11:35→21:44)
[2019-01-29] MEDS: COREG PO SCH ×2 (11:35→21:43)
[2019-01-29] MEDS: ALBURX 25% (ALBUMIN) IV SCH (13:25)
[2019-01-29 13:48] LABS: Creatinine,Urine 51.1 mg/dL (0.1-20.0)
--- NOTE | 2019-01-29 15:54 | Progress Note ---
Assessment and Plan Assessment and plan: --Non-ST elevated [place] type II; Management per cardiology,negative stress test --Hypokalemia; replace with KCl, monitor potassium levels --Hypomagnesemia; corrected --Acute mild systolic congestive heart failure , EF 45-50% On anti-failure medications, IV Lasix and beta blockers Input output monitoring, low sodium diet fluid restriction Cardiology is following the patient, follow echocardiogram for LV function --Acute kidney injury secondary to ATN,worsening renal function Monitor renal function, avoid nephrotoxins, nephrology following --Hypertensive urgency; present on admission The pressure well controlled, continue current antihypertensives --Diabetes mellitus; Well-controlled, Accu-Chek sliding scale coverage and ADA diet and insulin Avoid hypoglycemic episodes, diabetic diet, diabetic education --Peripheral vascular disease; 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 --Prior history of EtOH dependence; patient advised to quit alcohol intake --Chronic pancreatitis; stable --Anemia of chronic disease; monitor H&H transfuse as needed Iron supplements --Medical noncompliance; strongly advised to comply with medications diet and follow-up visits Patient verbalized understanding We'll monitor the patient closely and adjust management as needed Plan of care reviewed with the patient and his nurse Consults and recommendations noted and appreciated History Interval history: Patient seen and examined medical records reviewed Schedule for stress test today Has no new complaints Vital signs noted Hospitalist Physical - Constitutional Vitals: Temp Pulse Resp BP Pulse Ox 97.9 F 80 20 123/75 98 01/29/19 04:11 01/29/19 04:11 01/29/19 04:11 01/29/19 08:43 01/29/19 04:11 General appearance: Present: no acute distress, well-nourished - EENT Eyes: Present: PERRL, EOM intact - Neck Neck: Present: supple, normal ROM - Respiratory Respiratory effort: normal Respiratory: bilateral: diminished, rales, negative: rhonchi, wheezing - Cardiovascular Rhythm: regular Heart Sounds: Present: S1 & S2 - Extremities Extremities: no ischemia Extremity abnormal: edema - Abdominal General gastrointestinal: soft, non-tender, non-distended, normal bowel sounds - Integumentary Integumentary: Present: clear, warm - Psychiatric Psychiatric: appropriate mood/affect, cooperative - Neurologic Neurologic: CNII-XII intact, moves all extremities Results - Labs CBC & Chem 7: 01/28/19 04:56 01/29/19 07:02 Labs: Laboratory Last Values WBC 5.5 K/mm3 (4.5-11.0) 01/27/19 06:05 RBC 3.09 M/mm3 (3.65-5.03) L 01/27/19 06:05 Hgb 8.1 gm/dl (11.8-15.2) L 01/28/19 04:56 Hct 24.6 % (35.5-45.6) L 01/28/19 04:56 MCV 82 fl (84-94) L 01/27/19 06:05 MCH 27 pg (28-32) L 01/27/19 06:05 MCHC 33 % (32-34) 01/27/19 06:05 RDW 14.8 % (13.2-15.2) 01/27/19 06:05 Plt Count 149 K/mm3 (140-440) 01/28/19 04:56 Lymph % (Auto) 20.4 % (13.4-35.0) 01/27/19 06:05 [place] % (Auto) 5.9 % (0.0-7.3) 01/27/19 06:05 Eos % (Auto) 5.1 % (0.0-4.3) H 01/27/19 06:05 Baso % (Auto) 0.7 % (0.0-1.8) 01/27/19 06:05 Lymph # 1.1 K/mm3 (1.2-5.4) L 01/27/19 06:05 [place] # 0.3 K/mm3 (0.0-0.8) 01/27/19 06:05 Eos # 0.3 K/mm3 (0.0-0.4) 01/27/19 06:05 Baso # 0.0 K/mm3 (0.0-0.1) 01/27/19 06:05 Seg Neutrophils % 67.9 % (40.0-70.0) 01/27/19 06:05 Seg Neutrophils # 3.8 K/mm3 (1.8-7.7) 01/27/19 06:05 PT 15.4 Sec. (12.2-14.9) H 01/26/19 23:17 INR 1.15 (0.87-1.13) H 01/26/19 23:17 APTT 88.4 Sec. (24.2-36.6) H* 01/26/19 23:17 Heparin Anti-Xa Level 0.33 U.I./ml (0.3-0.7) 01/28/19 12:28 Sodium 141 mmol/L (137-145) 01/29/19 07:02 Potassium 3.8 mmol/L (3.6-5.0) 01/29/19 07:02 Chloride 107.6 mmol/L (98-107) H 01/29/19 07:02 Carbon Dioxide 22 mmol/L (22-30) 01/29/19 07:02 15 mmol/L 01/29/19 07:02 BUN 30 mg/dL (9-20) H 01/29/19 07:02 2.1 mg/dL (0.8-1.5) H 01/29/19 07:02 Estimated GFR 40 ml/min 01/29/19 07:02 14 % 01/29/19 07:02 Glucose 107 mg/dL (75-100) H 01/29/19 07:02 POC Glucose 237 (70-105) H 01/29/19 12:16 Calcium 7.7 mg/dL (8.4-10.2) L 01/29/19 07:02 Phosphorus 4.10 mg/dL (2.5-4.5) 01/28/19 04:56 Magnesium 1.70 mg/dL (1.7-2.3) 01/28/19 04:56 0.20 mg/dL (0.1-1.2) 01/26/19 08:09 < 0.2 mg/dL (0-0.2) 01/26/19 08:09 0.0 mg/dL 01/26/19 08:09 AST 45 units/L (5-40) H 01/26/19 08:09 ALT 49 units/L (7-56) 01/26/19 08:09 210 units/L (35-129) H 01/26/19 08:09 1135 units/L (55-170) H 01/29/19 07:02 CK-MB (CK-2) 15.4 ng/mL (0.0-4.0) H 01/26/19 17:54 CK-MB (CK-2) Rel Index 0.9 (0-4) 01/26/19 17:54 0.282 ng/mL (0.00-0.029) H* 01/26/19 17:54 NT-Pro-B Natriuret Pep 68581 pg/mL (0-900) H 01/29/19 07:02 5.4 g/dL (6.3-8.2) L 01/26/19 08:09 2.8 g/dL (3.9-5) L 01/26/19 08:09 1.1 % 01/26/19 08:09 Triglycerides 44 mg/dL (2-149) 01/26/19 08:17 Cholesterol 154 mg/dL (50-199) 01/26/19 08:17 72 mg/dL (50-130) 01/26/19 08:17 78 mg/dL (40-59) H 01/26/19 08:17 1.97 % 01/26/19 08:17 51.1 mg/dL (0.1-20.0) H 01/28/19 15:55 82 mg/dL (5-11.8) H 01/28/19 15:55 Active Medications - Current Medications Current Medications: Generic Name Dose Route Start Last Admin Trade Name Freq PRN Reason Stop Dose Admin Acetaminophen 650 mg 01/26/19 11:08 Tylenol PO Q4H PRN Non Cardiac Pain or Temp>100.5 Albumin Human 25 gm 01/29/19 08:00 01/29/19 13:25 Alburx 25% (Albumin) IV 25 gm Q24H JAMIE Administration Amlodipine Besylate 10 mg 01/26/19 14:00 01/29/19 11:33 Norvasc PO 10 mg DAILY JAMIE Administration Lipase/Protease/Amylase 6 each 01/26/19 16:30 01/29/19 11:[address] 12,000 Units PO 6 each AC JAMIE Administration Aspirin 81 mg 01/27/19 10:00 01/29/19 11:34 Baby Aspirin PO 81 mg QDAY JAMIE Administration Carvedilol 6.25 mg 01/26/19 15:00 01/29/19 11:35 Coreg PO 6.25 mg BID JAMIE Administration Dextrose 50 ml 01/26/19 11:09 01/26/19 13:03 D50w (25gm) Syringe IV 50 ml PRN PRN Administration Hypoglycemia Furosemide 40 mg 01/29/19 10:00 01/29/19 11:35 Lasix IV 40 mg QDAY JAMIE Administration Guaifenesin 10 ml 01/27/19 14:32 Guaifenesin Dm Syrup PO Q4H PRN Cough Hydralazine HCl 10 mg 01/26/19 15:24 Apresoline IV Q4HR PRN Hypertension Insulin Human Isoph/Insulin Regular 20 unit 01/26/19 22:00 01/29/19 11:34 Humulin 70/30 SUB-Q 20 unit BID JAMIE Administration Insulin Human Lispro 0 unit 01/26/19 11:30 01/29/19 13:57 Humalog SUB-Q 2 unit ACHS JAMIE Administration Protocol Lorazepam 2 mg 01/26/19 11:04 Ativan IV Q1H PRN CIWA-Ar 8-15 Nitroglycerin 0.4 mg 01/26/19 11:04 Nitrostat SL .Q5MIN PRN Chest Pain Ondansetron HCl 4 mg 01/26/19 11:04 Zofran IV Q8H PRN Nausea And Vomiting Sodium Chloride 10 ml 01/26/19 22:00 01/29/19 11:35 Sodium Chloride Flush Syringe 10 Ml IV 10 ml BID JAMIE Administration Sodium Chloride 10 ml 01/26/19 11:04 Sodium Chloride Flush Syringe 10 Ml IV PRN PRN LINE FLUSH Zolpidem Tartrate 5 mg 01/27/19 22:00 01/28/19 23:27 Ambien PO 5 mg QHS PRN Administration Sleep Nutrition/Malnutrition Assess - Dietary Evaluation Nutrition/Malnutrition Findings: Nutrition Notes Start: 01/27/19 15:49 Freq: Status: Active Protocol: Document 01/28/19 16:26 RM (Rec: 01/28/19 16:30 RM [id number]) Nutrition Notes Initial or Follow up Brief Note Current Diagnosis Heart Failure Other Pertinent Diagnosis PVD, Chronic pancreatitis, Medical noncompliance, R foot amputation Current Diet Renal, Cardiac Labs/Tests Reviewed Pertinent Medications Lasix Height 5 ft 10 in Weight 92.5 kg Usual Body Weight 81.82 kg [employer] [place] Body Weight (kg) 75.45 BMI 29.2 Subjective/Other Information 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 Stated that he eats all of his meals here and requested more food. Noted lunch at bedside w/100% eaten. Livestock Counter agreed to provide double portion of protein. Pt stated that his UBW was 180 lbs 1 month ago. No temporal or orbital wasting . Pt declined DM diet education. Burn Absent Trauma Absent Nutrition Intervention Change Diet Order: Renal,Cardiac w/double protein Revisit per MD consult or patient Sign Off request:
--- NOTE | 2019-01-29 17:20 | Progress Note ---
Assessment and Plan - Patient Problems (1) Acute kidney injury Current Visit: Yes Status: Acute Plan to address problem: Acute kidney injury worsening Baseline creatinine 1.2 mg/dl Current creatinine 2.1 mg/DL Given associated hypoalbuminemia and longstanding Diabetes and edema likely has a component of nephrotic syndrome Will send serologies as well Urine studies ordered Will give Albumin 25g IV followed by IV lasix 40mg IV daily. Etiology of acute kidney injury related with cardiorenal syndrome with underlying DM nephropathy. Avoid nephrotoxic medications (2) Acute heart failure Current Visit: Yes Status: Acute Qualifiers: Heart failure type: unspecified Qualified Code(s): I50.9 - Heart failure, unspecified Plan to address problem: Acute congestive heart failure. impaired diastolic function with restrictive pattern on Echocardiogram with reduced LVEF and dilated Cardiac chambers. Significant lower extremity edema distended neck veins Will decrease diuretics to 40 mg IV day with albumin to faciliatate delivery given restrictive pattern Will seen immunofixation as well to exclude other possiblities of CHF. 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 We'll initiate medications monitor fingersticks (5) Elevated creatine kinase Current Visit: Yes Status: Acute Plan to address problem: Admitted with elevated creatinine kinase level Denies any stressful exercise Ensure oral intake Also elevated troponin Cardiology Following Trend CK levels will hold IV fluids for given volume overload state Subjective Principal diagnosis: HF Interval history: 53-year-old gentleman with history significant for hypertension admitted with complaints of worsening shortness of breath or significant orthopnea and PND also reports significant extremity edema Patient seen today s/p stress testing still has signficant edema. denies nausea, vomitting , Objective - Vital Signs Vital signs: Vital Signs - 12hr 01/29/19 01/29/19 01/29/19 08:17 08:39 08:41 Blood Pressure 137/92 149/100 119/73 01/29/19 01/29/19 08:42 08:43 Blood Pressure 125/78 123/75 - General Appearance General appearance: well-developed, well-nourished EENT: ATNC, PERRL, mucous membranes moist Neck: no JVD, JVD Respiratory: Present: Clear to Ascultation Cardiology: regular, S1S2 Gastrointestinal: normal, normoactive bowel sounds Integumentary: no rash Neurologic: CN 3-12 intact Musculoskeletal: other (grade 2-3 edema. ) Psychiatric: mood/affect appropriate - Lab 01/28/19 04:56 01/29/19 07:02 Most recent lab results Calcium 7.7 mg/dL (8.4-10.2) L 01/29/19 07:02 Phosphorus 4.10 mg/dL (2.5-4.5) 01/28/19 04:56 Magnesium 1.70 mg/dL (1.7-2.3) 01/28/19 04:56 51.1 mg/dL (0.1-20.0) H 01/28/19 15:55 82 mg/dL (5-11.8) H 01/28/19 15:55 - Imaging Chest x-ray: image reviewed (CXR reviewed without overt edema. ) Medications & Allergies - Medications Allergies/Adverse Reactions: Allergies No Known Allergies Allergy (Unverified 10/21/18 19:15) Home Medications: Home Medications Medication Instructions Recorded Confirmed Last Taken Type Acetaminophen [Acetaminophen TAB] 650 mg PO Q4H PRN #15 tablet 10/24/18 01/26/19 01/25/19 Rx Insulin NPH/Regular [NovoLIN 70/30] 20 unit SUB-Q BID #100 units 10/24/18 01/26/19 01/25/19 Rx Insulin Regular, Human [HumuLIN R] 1 dose SUB-Q ACHS PRN #100 units 10/24/18 01/26/19 01/25/19 Rx Lisinopril [Zestril TAB] 10 mg PO DAILY 01/26/19 01/26/19 01/25/19 History 10 mg amLODIPine [Norvasc] 10 mg PO DAILY 01/26/19 01/26/19 01/25/19 History 10 mg Active Medications: Generic Name Dose Route Start Last Admin Trade Name Freq PRN Reason Stop Dose Admin Acetaminophen 650 mg 01/26/19 11:08 Tylenol PO Q4H PRN Non Cardiac Pain or Temp>100.5 Albumin Human 25 gm 01/29/19 08:00 01/29/19 13:25 Alburx 25% (Albumin) IV 25 gm Q24H JAMIE Administration Amlodipine Besylate 10 mg 01/26/19 14:00 01/29/19 11:33 Norvasc PO 10 mg DAILY JAMIE Administration Lipase/Protease/Amylase 6 each 01/26/19 16:30 01/29/19 11:35 Crenereida Espinoza 12,000 Units PO 6 each AC JAMIE Administration Aspirin 81 mg 01/27/19 10:00 01/29/19 11:34 Baby Aspirin PO 81 mg QDAY JAMIE Administration Carvedilol 6.25 mg 01/26/19 15:00 01/29/19 11:35 Coreg PO 6.25 mg BID JAMIE Administration Dextrose 50 ml 01/26/19 11:09 01/26/19 13:03 D50w (25gm) Syringe IV 50 ml PRN PRN Administration Hypoglycemia Furosemide 40 mg 01/29/19 10:00 01/29/19 11:35 Lasix IV 40 mg QDAY JAMIE Administration Guaifenesin 10 ml 01/27/19 14:32 Guaifenesin Dm Syrup PO Q4H PRN Cough Hydralazine HCl 10 mg 01/26/19 15:24 Apresoline IV Q4HR PRN Hypertension Insulin Human Isoph/Insulin Regular 20 unit 01/26/19 22:00 01/29/19 11:34 Humulin 70/30 SUB-Q 20 unit BID JAMIE Administration Insulin Human Lispro 0 unit 01/26/19 11:30 01/29/19 13:57 Humalog SUB-Q 2 unit ACHS JAMIE Administration Protocol Lorazepam 2 mg 01/26/19 11:04 Ativan IV Q1H PRN CIWA-Ar 8-15 Nitroglycerin 0.4 mg 01/26/19 11:04 Nitrostat SL .Q5MIN PRN Chest Pain Ondansetron HCl 4 mg 01/26/19 11:04 Zofran IV Q8H PRN Nausea And Vomiting Sodium Chloride 10 ml 01/26/19 22:00 01/29/19 11:35 Sodium Chloride Flush Syringe 10 Ml IV 10 ml BID JAMIE Administration Sodium Chloride 10 ml 01/26/19 11:04 Sodium Chloride Flush Syringe 10 Ml IV PRN PRN LINE FLUSH Zolpidem Tartrate 5 mg 01/27/19 22:00 01/28/19 23:27 Ambien PO 5 mg QHS PRN Administration Sleep
[2019-01-29] MEDS: AMBIEN PO PRN (22:35)
--- NOTE | 2019-01-30 02:23 | Treadmill Report ---
NUCLEAR CARDIAC IMAGING REPORT INDICATION FOR PROCEDURE: Abnormal cardiac troponins. Informed consent was obtained. Rest and stress nuclear cardiac imaging were performed following the intravenous administration of 10 and 28 mCi of technetium-99m Myoview respectively per protocol. Vasodilator stress was achieved with the intravenous administration of 0.4 mg of Lexiscan per protocol. Images were acquired in a 180-degree arc from 45 degrees PERRY to 45 degrees LPO. After data acquisition and reconstruction, the images were processed and reoriented into the vertical long, horizontal long, and horizontal short axis slices. A polar color map of the horizontal short axis slices was generated and reviewed. The rotating planar images reviewed in cinematic format on the computer console. Gated SPECT imaging demonstrates a post-stress left ventricular ejection fraction of 44%. The left ventricle is mildly diffusely hypokinetic with no significant regional wall motion abnormalities. Myocardial perfusion imaging demonstrates no significant cavity change between stress and rest. A small mild persistent inferior wall perfusion abnormality is seen. This defect in the absence of a segmental wall motion abnormality may be artifactual in origin. Nuclear cardiac imaging demonstrates mild left ventricular systolic dysfunction. A small area of prior inferior wall myocardial necrosis cannot be definitely excluded, although this defect may be artifactual in origin. A significant degree of ischemia is not seen. [facility]# [id number] EAMON/BG
[2019-01-30 06:21] LABS: Hematocrit 25.5 % (35.5-45.6); Hemoglobin 8.1 gm/dl (11.8-15.2)
[2019-01-30 06:58] LABS: Calcium 8.2 mg/dL (8.4-10.2)
[2019-01-30] MEDS: HumaLOG SUB-Q SCH ×5 (08:21→23:16)
[2019-01-30] MEDS: CREON DR 12,000 UNITS PO SCH ×3 (08:53→18:12)
[2019-01-30] MEDS: ALBURX 25% (ALBUMIN) IV SCH ×2 (09:42→18:12)
--- NOTE | 2019-01-30 09:48 | Progress Note ---
Assessment and Plan Serum Cr trending upwards, cont diuresis per nephrology and monitor renal indices. Cont coreg and amlodipine. No ACEI/ARB at this time in setting of renal insufficiency. The patient has been seen in conjunction with Dr. Baeza who agrees with the assessment and plan of care. - Patient Problems (1) Acute HFrEF (heart failure with reduced ejection fraction) Current Visit: Yes Status: Acute (2) Cardiomyopathy Current Visit: Yes Status: Chronic Plan to address problem: presumably nonischemic - lexiscan MPI stress test 01/29/2019 negative for significant ischemia, EF 44%. (3) NSTEMI (non-ST elevated myocardial infarction) Current Visit: Yes Status: Acute (4) Uncontrolled hypertension Current Visit: Yes Status: Chronic (5) Diabetes Current Visit: Yes Status: Chronic (6) History of chronic pancreatitis Current Visit: Yes Status: Chronic (7) History of ETOH abuse Current Visit: Yes Status: Chronic (8) PVD (peripheral vascular disease) Current Visit: Yes Status: Chronic (9) Anemia Current Visit: Yes Status: Acute (10) ANYA (acute kidney injury) Current Visit: Yes Status: Acute Subjective Date of service: 01/30/19 Principal diagnosis: HF Interval history: pt ambulating around room, SOB improving, BLE persists. Objective Last Vital Signs Temp 98.4 F 01/30/19 08:04 Pulse 72 01/30/19 08:04 Resp 18 01/30/19 08:04 BP 123/85 01/30/19 08:04 Pulse Ox 100 01/30/19 08:04 - Physical Examination General: No Apparent Distress HEENT: Positive: PERRL, Normocephaly, Mucus Membranes Moist Neck: Positive: neck supple, JVD/HJR Cardiac: Positive: Reg Rate and Rhythm, S1/S2 Lungs: Positive: Decreased Breath Sounds Abdomen: Negative: Tender Skin: Negative: Rash Musculoskeletal: other (partial left foot amputation ) Extremities: Present: +2 Edema - Labs and Meds CBC 01/30/19 Range/Units 04:34 Hgb 8.1 L (11.8-15.2) gm/dl Hct 25.5 L (35.5-45.6) % Plt Count 174 (140-440) K/mm3 Comprehensive Metabolic Panel 01/30/19 Range/Units 04:34 Sodium 140 (137-145) mmol/L Potassium 4.6 D (3.6-5.0) mmol/L Chloride 105.8 (98-107) mmol/L Carbon Dioxide 19 L (22-30) mmol/L BUN 36 H (9-20) mg/dL Creatinine 2.4 H (0.8-1.5) mg/dL Glucose 151 H (75-100) mg/dL Calcium 8.2 L (8.4-10.2) mg/dL - Imaging and Cardiology EKG: report reviewed, image reviewed Echo: report reviewed (EF 45-50%, mild LVH, restrictive diastolic filling, LA mildly dilated, RV mod dilated, RV systolic function mildly reduced, RA mildly dilated, trace MR, mild TR, RVSP 56mmHg, small pericardial effusion that does not appear to be hemodynamically significant. ) - EKG Sinus rhythms and dysrhythmias: sinus rhythm
[2019-01-30] MEDS: COREG PO SCH ×2 (10:23→23:14)
[2019-01-30] MEDS: BABY ASPIRIN PO SCH (10:23)
[2019-01-30] MEDS: NORVASC PO SCH (10:23)
[2019-01-30] MEDS: LASIX IV SCH (10:23)
[2019-01-30] MEDS: SODIUM CHLORIDE FLUSH SYRINGE 10 ML IV SCH ×2 (10:24→23:17)
--- NOTE | 2019-01-30 11:53 | Progress Note ---
Assessment and Plan Assessment and plan: --Non-ST elevated TN type II; Management per cardiology,negative stress test --Hypokalemia; replace with KCl, monitor potassium levels --Hypomagnesemia; corrected --Acute mild systolic congestive heart failure , EF 45-50% On anti-failure medications, IV Lasix and beta blockers Input output monitoring, low sodium diet fluid restriction Cardiology is following the patient, --Acute kidney injury secondary to ATN,worsening renal function Monitor renal function, avoid nephrotoxins, nephrology following --Hypertensive urgency; present on admission The pressure well controlled, continue current antihypertensives --Diabetes mellitus; Well-controlled, Accu-Chek sliding scale coverage and ADA diet and insulin Avoid hypoglycemic episodes, diabetic diet, diabetic education --Peripheral vascular disease; 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 --Prior history of EtOH dependence; patient advised to quit alcohol intake --Chronic pancreatitis; stable --Anemia of chronic disease; monitor H&H transfuse as needed Iron supplements --Medical noncompliance; strongly advised to comply with medications diet and follow-up visits Patient verbalized understanding We'll monitor the patient closely and adjust management as needed Plan of care reviewed with the patient and his nurse Consults and recommendations noted and appreciated History Interval history: Patient seen and examined medical records reviewed No new events reported by nursing staff Patient continues to have fluid overload Alert awake oriented vital signs stable Hospitalist Physical - Constitutional Vitals: Temp Pulse Resp BP Pulse Ox 98.4 F 72 18 123/85 100 01/30/19 08:04 01/30/19 10:23 01/30/19 08:04 01/30/19 10:23 01/30/19 08:04 General appearance: Present: no acute distress, well-nourished - EENT Eyes: Present: PERRL, EOM intact - Neck Neck: Present: supple, normal ROM - Respiratory Respiratory effort: normal Respiratory: bilateral: diminished, rales, negative: rhonchi, wheezing - Cardiovascular Rhythm: regular Heart Sounds: Present: S1 & S2 - Extremities Extremities: no ischemia Extremity abnormal: edema - Abdominal General gastrointestinal: soft, non-tender, non-distended, normal bowel sounds - Integumentary Integumentary: Present: clear, warm - Psychiatric Psychiatric: appropriate mood/affect, cooperative - Neurologic Neurologic: CNII-XII intact, moves all extremities Results - Labs CBC & Chem 7: 01/30/19 04:34 01/30/19 04:34 Labs: Laboratory Last Values WBC 5.5 K/mm3 (4.5-11.0) 01/27/19 06:05 RBC 3.09 M/mm3 (3.65-5.03) L 01/27/19 06:05 Hgb 8.1 gm/dl (11.8-15.2) L 01/30/19 04:34 Hct 25.5 % (35.5-45.6) L 01/30/19 04:34 MCV 82 fl (84-94) L 01/27/19 06:05 MCH 27 pg (28-32) L 01/27/19 06:05 MCHC 33 % (32-34) 01/27/19 06:05 RDW 14.8 % (13.2-15.2) 01/27/19 06:05 Plt Count 174 K/mm3 (140-440) 01/30/19 04:34 Lymph % (Auto) 20.4 % (13.4-35.0) 01/27/19 06:05 [place] % (Auto) 5.9 % (0.0-7.3) 01/27/19 06:05 Eos % (Auto) 5.1 % (0.0-4.3) H 01/27/19 06:05 Baso % (Auto) 0.7 % (0.0-1.8) 01/27/19 06:05 Lymph # 1.1 K/mm3 (1.2-5.4) L 01/27/19 06:05 [place] # 0.3 K/mm3 (0.0-0.8) 01/27/19 06:05 Eos # 0.3 K/mm3 (0.0-0.4) 01/27/19 06:05 Baso # 0.0 K/mm3 (0.0-0.1) 01/27/19 06:05 Seg Neutrophils % 67.9 % (40.0-70.0) 01/27/19 06:05 Seg Neutrophils # 3.8 K/mm3 (1.8-7.7) 01/27/19 06:05 PT 15.4 Sec. (12.2-14.9) H 01/26/19 23:17 INR 1.15 (0.87-1.13) H 01/26/19 23:17 APTT 88.4 Sec. (24.2-36.6) H* 01/26/19 23:17 Heparin Anti-Xa Level 0.33 U.I./ml (0.3-0.7) 01/28/19 12:28 Sodium 140 mmol/L (137-145) 01/30/19 04:34 Potassium 4.6 mmol/L (3.6-5.0) D 01/30/19 04:34 Chloride 105.8 mmol/L (98-107) 01/30/19 04:34 Carbon Dioxide 19 mmol/L (22-30) L 01/30/19 04:34 20 mmol/L 01/30/19 04:34 BUN 36 mg/dL (9-20) H 01/30/19 04:34 2.4 mg/dL (0.8-1.5) H 01/30/19 04:34 Estimated GFR 35 ml/min 01/30/19 04:34 15 % 01/30/19 04:34 Glucose 151 mg/dL (75-100) H 01/30/19 04:34 POC Glucose 134 (70-105) H 01/30/19 08:09 Calcium 8.2 mg/dL (8.4-10.2) L 01/30/19 04:34 Phosphorus 4.10 mg/dL (2.5-4.5) 01/28/19 04:56 Magnesium 1.70 mg/dL (1.7-2.3) 01/28/19 04:56 0.20 mg/dL (0.1-1.2) 01/26/19 08:09 < 0.2 mg/dL (0-0.2) 01/26/19 08:09 0.0 mg/dL 01/26/19 08:09 AST 45 units/L (5-40) H 01/26/19 08:09 ALT 49 units/L (7-56) 01/26/19 08:09 210 units/L (35-129) H 01/26/19 08:09 1339 units/L (55-170) H 01/30/19 04:34 CK-MB (CK-2) 15.4 ng/mL (0.0-4.0) H 01/26/19 17:54 CK-MB (CK-2) Rel Index 0.9 (0-4) 01/26/19 17:54 0.282 ng/mL (0.00-0.029) H* 01/26/19 17:54 NT-Pro-B Natriuret Pep 9394 pg/mL (0-900) H 01/30/19 04:34 5.4 g/dL (6.3-8.2) L 01/26/19 08:09 2.8 g/dL (3.9-5) L 01/26/19 08:09 1.1 % 01/26/19 08:09 Triglycerides 44 mg/dL (2-149) 01/26/19 08:17 Cholesterol 154 mg/dL (50-199) 01/26/19 08:17 72 mg/dL (50-130) 01/26/19 08:17 78 mg/dL (40-59) H 01/26/19 08:17 1.97 % 01/26/19 08:17 51.1 mg/dL (0.1-20.0) H 01/28/19 15:55 82 mg/dL (5-11.8) H 01/28/19 15:55 Active Medications - Current Medications Current Medications: Generic Name Dose Route Start Last Admin Trade Name Freq PRN Reason Stop Dose Admin Acetaminophen 650 mg 01/26/19 11:08 Tylenol PO Q4H PRN Non Cardiac Pain or Temp>100.5 Albumin Human 25 gm 01/30/19 14:00 Alburx 25% (Albumin) IV Q8HR JAMIE Amlodipine Besylate 10 mg 01/26/19 14:00 01/30/19 10:23 Norvasc PO 10 mg DAILY JAMIE Administration Lipase/Protease/Amylase 6 each 01/26/19 16:30 01/30/19 08:53 Alex Espinoza 12,000 Units PO 6 each AC JAMIE Administration Aspirin 81 mg 01/27/19 10:00 01/30/19 10:23 Baby Aspirin PO 81 mg QDAY JAMIE Administration Carvedilol 6.25 mg 01/26/19 15:00 01/30/19 10:23 Coreg PO 6.25 mg BID JAMIE Administration Dextrose 50 ml 01/26/19 11:09 01/26/19 13:03 D50w (25gm) Syringe IV 50 ml PRN PRN Administration Hypoglycemia Guaifenesin 10 ml 01/27/19 14:32 Guaifenesin Dm Syrup PO Q4H PRN Cough Hydralazine HCl 10 mg 01/26/19 15:24 Apresoline IV Q4HR PRN Hypertension Insulin Human Isoph/Insulin Regular 20 unit 01/26/19 22:00 01/30/19 10:24 Humulin 70/30 SUB-Q 20 unit BID JAMIE Administration Insulin Human Lispro 0 unit 01/26/19 11:30 01/30/19 08:21 Humalog SUB-Q Not Given ACHS [facility] Protocol Lorazepam 2 mg 01/26/19 11:04 Ativan IV Q1H PRN CIWA-Ar 8-15 Nitroglycerin 0.4 mg 01/26/19 11:04 Nitrostat SL .Q5MIN PRN Chest Pain Ondansetron HCl 4 mg 01/26/19 11:04 Zofran IV Q8H PRN Nausea And Vomiting Sodium Bicarbonate 1,300 mg 01/30/19 11:00 Sodium Bicarbonate PO BID JAMIE Sodium Chloride 10 ml 01/26/19 22:00 01/30/19 10:24 Sodium Chloride Flush Syringe 10 Ml IV 10 ml BID JAMIE Administration Sodium Chloride 10 ml 01/26/19 11:04 Sodium Chloride Flush Syringe 10 Ml IV PRN PRN LINE FLUSH Zolpidem Tartrate 5 mg 01/27/19 22:00 01/29/19 22:35 Ambien PO 5 mg QHS PRN Administration Sleep Nutrition/Malnutrition Assess - Dietary Evaluation Nutrition/Malnutrition Findings: Nutrition Notes Start: 01/27/19 15:49 Freq: Status: Active Protocol: Document 01/28/19 16:26 RM (Rec: 01/28/19 16:30 RM [id number]) Nutrition Notes Initial or Follow up Brief Note Current Diagnosis Heart Failure Other Pertinent Diagnosis PVD, Chronic pancreatitis, Medical noncompliance, R foot amputation Current Diet Renal, Cardiac Labs/Tests Reviewed Pertinent Medications Lasix Height 5 ft 10 in Weight 92.5 kg Usual Body Weight 81.82 kg [place] Body Weight (kg) 75.45 BMI 29.2 Subjective/Other Information Pt stated that [employer] his appetite was good and that he ate 2-3 meals daily. Stated that he eats all of his meals here and requested more food. Noted lunch at bedside w/100% eaten. Research Project Coordinator agreed to provide double portion of protein. Pt stated that his UBW was 180 lbs 1 month ago. No temporal or orbital wasting . Pt declined DM diet education. Burn Absent Trauma Absent Nutrition Intervention Change Diet Order: Renal,Cardiac w/double protein Revisit per MD consult or patient Sign Off request:
[2019-01-30] MEDS ORDERED: DIURIL IV ONE (13:04)
--- NOTE | 2019-01-30 13:14 | Progress Note ---
Assessment and Plan - Patient Problems (1) Acute kidney injury Current Visit: Yes Status: Acute Plan to address problem: Acute kidney injury worsening Baseline creatinine 1.2 mg/dl Current creatinine 2.4 mg/DL Given associated hypoalbuminemia and longstanding Diabetes and edema likely has a component of nephrotic syndrome Will send serologies as well Urine protein creatinine ration >1.5grams/gram worsening renal function despite decreasing diuretic dose. Will give Albumin 25g IV q 8hrs Given decreased urine output and anarsaca Will give Diuril 500mg IV x 1 then Bumex 2mg IV and assess response. Etiology of acute kidney injury related with cardiorenal syndrome with underlying probable DM nephropathy. Avoid nephrotoxic medications (2) Acute heart failure Current Visit: Yes Status: Acute Qualifiers: Heart failure type: unspecified Qualified Code(s): I50.9 - Heart failure, unspecified Plan to address problem: Acute congestive heart failure. impaired diastolic function with restrictive pattern on Echocardiogram with reduced LVEF and dilated Cardiac chambers. Significant lower extremity edema distended neck veins Volume status is still not improved will give a dose of Diuril 500mg IV x 1 and then Bumex given restrictive pattern Will seen immunofixation as well to exclude other possiblities of CHF. 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 We'll initiate medications monitor fingersticks (5) Elevated creatine kinase Current Visit: Yes Status: Acute Plan to address problem: Admitted with elevated creatinine kinase level Denies any stressful exercise Ensure oral intake Also elevated troponin Cardiology Following Trend CK levels will hold IV fluids for given volume overload state Subjective Principal diagnosis: HF Interval history: 53-year-old gentleman with history significant for hypertension admitted with complaints of worsening shortness of breath or significant orthopnea and PND also reports significant extremity edema Patient seen today has worsening anarsaca grade 3 edema with scrotal edema reports decreased urine output distended neck veins. Objective - Vital Signs Vital signs: Vital Signs - 12hr 01/30/19 01/30/19 01/30/19 03:47 08:04 10:23 Temperature 98.4 F 98.4 F Pulse Rate 74 72 72 Respiratory 17 18 Rate Blood Pressure 142/91 123/85 123/85 O2 Sat by Pulse 99 100 Oximetry 01/30/19 12:16 Temperature 98.3 F Pulse Rate 74 Respiratory 18 Rate Blood Pressure 128/86 O2 Sat by Pulse 99 Oximetry - General Appearance General appearance: well-developed, well-nourished EENT: ATNC, PERRL, mucous membranes moist Neck: JVD Respiratory: Present: Decreased Breath Sounds Cardiology: regular, S1S2 Gastrointestinal: normal, normoactive bowel sounds Integumentary: no rash, chronic venous stasis Neurologic: alert and oriented x3, CN 3-12 intact Musculoskeletal: other (grade 3 edema. ) Psychiatric: mood/affect appropriate (I reviewed chest x ray without overt ed rocío. ) - Lab 01/30/19 04:34 01/30/19 04:34 Most recent lab results Calcium 8.2 mg/dL (8.4-10.2) L 01/30/19 04:34 Phosphorus 4.10 mg/dL (2.5-4.5) 01/28/19 04:56 Magnesium 1.70 mg/dL (1.7-2.3) 01/28/19 04:56 51.1 mg/dL (0.1-20.0) H 01/28/19 15:55 82 mg/dL (5-11.8) H 01/28/19 15:55 - Imaging Chest x-ray: image reviewed (i reviewed CXR with ) Medications & Allergies - Medications Allergies/Adverse Reactions: Allergies No Known Allergies Allergy (Unverified 10/21/18 19:15) Home Medications: Home Medications Medication Instructions Recorded Confirmed Last Taken Type Acetaminophen [Acetaminophen TAB] 650 mg PO Q4H PRN #15 tablet 10/24/18 01/26/19 01/25/19 Rx Insulin NPH/Regular [NovoLIN 70/30] 20 unit SUB-Q BID #100 units 10/24/18 01/26/19 01/25/19 Rx Insulin Regular, Human [HumuLIN R] 1 dose SUB-Q ACHS PRN #100 units 10/24/18 01/26/19 01/25/19 Rx Lisinopril [Zestril TAB] 10 mg PO DAILY 01/26/19 01/26/19 01/25/19 History 10 mg amLODIPine [Norvasc] 10 mg PO DAILY 05/20/19 05/20/19 05/19/19 History 10 mg Active Medications: Generic Name Dose Route Start Last Admin Trade Name Freq PRN Reason Stop Dose Admin Acetaminophen 650 mg 01/26/19 11:08 Tylenol PO Q4H PRN Non Cardiac Pain or Temp>100.5 Albumin Human 25 gm 01/30/19 14:00 Alburx 25% (Albumin) IV Q8HR JAMIE Amlodipine Besylate 10 mg 01/26/19 14:00 01/30/19 10:23 Norvasc PO 10 mg DAILY JAMIE Administration Lipase/Protease/Amylase 6 each 01/26/19 16:30 01/30/19 08:[address] 12,000 Units PO 6 each AC JAMIE Administration Aspirin 81 mg 01/27/19 10:00 01/30/19 10:23 Baby Aspirin PO 81 mg QDAY JAMIE Administration Bumetanide 2 mg 01/30/19 15:00 Bumex IV 01/30/19 15:01 ONCE ONE Carvedilol 6.25 mg 01/26/19 15:00 01/30/19 10:23 Coreg PO 6.25 mg BID JAMIE Administration Chlorothiazide Sodium 500 mg 01/30/19 13:04 Diuril IV 01/30/19 13:05 ONCE ONE Dextrose 50 ml 01/26/19 11:09 01/26/19 13:03 D50w (25gm) Syringe IV 50 ml PRN PRN Administration Hypoglycemia Guaifenesin 10 ml 01/27/19 14:32 Guaifenesin Dm Syrup PO Q4H PRN Cough Hydralazine HCl 10 mg 01/26/19 15:24 Apresoline IV Q4HR PRN Hypertension Insulin Human Isoph/Insulin Regular 20 unit 01/26/19 22:00 01/30/19 10:24 Humulin 70/30 SUB-Q 20 unit BID JAMIE Administration Insulin Human Lispro 0 unit 01/26/19 11:30 01/30/19 08:21 Humalog SUB-Q Not Given ACHS [facility] Protocol Lorazepam 2 mg 01/26/19 11:04 Ativan IV Q1H PRN CIWA-Ar 8-15 Nitroglycerin 0.4 mg 01/26/19 11:04 Nitrostat SL .Q5MIN PRN Chest Pain Ondansetron HCl 4 mg 01/26/19 11:04 Zofran IV Q8H PRN Nausea And Vomiting Sodium Bicarbonate 1,300 mg 01/30/19 11:00 Sodium Bicarbonate PO BID JAMIE Sodium Chloride 10 ml 01/26/19 22:00 01/30/19 10:24 Sodium Chloride Flush Syringe 10 Ml IV 10 ml BID JAMIE Administration Sodium Chloride 10 ml 01/26/19 11:04 Sodium Chloride Flush Syringe 10 Ml IV PRN PRN LINE FLUSH Zolpidem Tartrate 5 mg 01/27/19 22:00 01/29/19 22:35 Ambien PO 5 mg QHS PRN Administration Sleep
[2019-01-30] MEDS: SODIUM BICARBONATE PO SCH ×2 (13:31→23:14)
[2019-01-30] MEDS ORDERED: DIURIL 500 MG in NACL 0.9% 50 ML IV ONE (15:00)
[2019-01-30] MEDS ORDERED: BUMEX IV ONE (15:00)
[2019-01-30] MEDS: AMBIEN PO PRN (23:24)
[2019-01-31] MEDS: ALBURX 25% (ALBUMIN) IV SCH ×3 (02:53→18:24)
[2019-01-31] MEDS: SODIUM CHLORIDE FLUSH SYRINGE 10 ML IV PRN (02:57)
[2019-01-31 06:07] LABS: Calcium 8.4 mg/dL (8.4-10.2)
[2019-01-31] MEDS: HumaLOG SUB-Q SCH ×4 (08:45→22:41)
[2019-01-31] MEDS: CREON DR 12,000 UNITS PO SCH ×3 (08:56→18:05)
--- NOTE | 2019-01-31 10:31 | Progress Note ---
Assessment and Plan 53-year-old gentleman with mild LV dysfunction no significant ischemia on stress test has two-pillow orthopnea 2+ edema has acute on chronic renal failure blood pressures controlled with amlodipine and Coreg nephrology to determine diuretics on the patient. No arrhythmias noted for more than 48 hours may be transferred to medical floor - Patient Problems (1) Acute HFrEF (heart failure with reduced ejection fraction) Current Visit: Yes Status: Acute (2) Cardiomyopathy, alcoholic Current Visit: Yes Status: Acute (3) Dependent edema Current Visit: Yes Status: Acute (4) NSTEMI (non-ST elevated myocardial infarction) Current Visit: Yes Status: Acute Plan to address problem: nstemi type 2 (5) Type 2 myocardial infarction Current Visit: Yes Status: Acute (6) Diabetes Current Visit: Yes Status: Chronic Qualifiers: Diabetes mellitus type: type 1 Diabetes mellitus complication status: with circulatory complication Diabetes mellitus complication detail: with other circulatory complications Qualified Code(s): E10.59 - Type 1 diabetes mellitus with other circulatory complications (7) PVD (peripheral vascular disease) Current Visit: Yes Status: Chronic (8) Hypertension Current Visit: No Status: Acute Qualifiers: Hypertension type: essential hypertension Qualified Code(s): I10 - Essential (primary) hypertension (9) Uncontrolled diabetes mellitus Current Visit: No Status: Acute Qualifiers: Diabetes mellitus type: type 1 Glycemic state: with hyperglycemia Qualified Code(s): E10.65 - Type 1 diabetes mellitus with hyperglycemia Subjective Date of service: 01/31/19 Principal diagnosis: HF Interval history: pt has sob and swelling Objective Vital Signs Temp Pulse Resp BP Pulse Ox 01/31/19 09:01 24 99 01/31/19 09:00 74 01/31/19 05:46 98.5 F 77 20 130/85 99 01/31/19 04:50 76 01/31/19 00:02 98.2 F 82 20 141/89 100 01/30/19 23:14 80 115/70 01/30/19 19:50 80 01/30/19 19:42 98.0 F 80 18 115/70 97 01/30/19 12:16 98.3 F 74 18 128/86 99 01/30/19 10:23 72 123/85 - Physical Examination General: No Apparent Distress HEENT: Positive: PERRL, Normocephaly, Mucus Membranes Moist Neck: Positive: neck supple, JVD/HJR Cardiac: Positive: Reg Rate and Rhythm Lungs: Positive: Decreased Breath Sounds Neuro: Positive: Grossly Intact Abdomen: Negative: Tender Skin: Negative: Rash Musculoskeletal: other (partial left foot amputation ) Extremities: Present: +2 Edema - Labs and Meds Comprehensive Metabolic Panel 01/31/19 Range/Units 04:13 Sodium 143 (137-145) mmol/L Potassium 4.3 (3.6-5.0) mmol/L Chloride 107.9 H (98-107) mmol/L Carbon Dioxide 22 (22-30) mmol/L BUN 43 H (9-20) mg/dL Creatinine 2.5 H (0.8-1.5) mg/dL Glucose 254 H (75-100) mg/dL Calcium 8.4 (8.4-10.2) mg/dL - Imaging and Cardiology EKG: report reviewed, image reviewed Echo: report reviewed (EF 45-50%, mild LVH, restrictive diastolic filling, LA mildly dilated, RV mod dilated, RV systolic function mildly reduced, RA mildly dilated, trace MR, mild TR, RVSP 56mmHg, small pericardial effusion that does not appear to be hemodynamically significant. ) - Telemetry EKG Rhythm: Sinus Rhythm - EKG Sinus rhythms and dysrhythmias: sinus rhythm
[2019-01-31] MEDS: SODIUM BICARBONATE PO SCH ×2 (11:05→22:41)
[2019-01-31] MEDS: NORVASC PO SCH (11:05)
[2019-01-31] MEDS: BABY ASPIRIN PO SCH (11:05)
[2019-01-31] MEDS: COREG PO SCH ×2 (11:05→22:42)
[2019-01-31] MEDS: SODIUM CHLORIDE FLUSH SYRINGE 10 ML IV SCH ×2 (11:07→22:42)
--- NOTE | 2019-01-31 13:17 | Progress Note ---
Assessment and Plan Impression * Acute renal failure * Congestive heart failure * Anasarca * Uncontrolled hypertension * Diabetes Recommendations * Etiology of his acute kidney injury unclear. His baseline creatinine is approximately 1.2-1.4 * Follow up results of vasculitis workup * Patient is clinically volume overloaded * Resume IV Bumex with albumin * Check renal ultrasound * Monitor fluid status and electrolytes closely * If patient has inadequate response to diuretics, may need to consider renal replacement therapy Subjective Date of service: 01/31/19 Principal diagnosis: HF Interval history: Patient complains of shortness of breath. No nausea or vomiting. Objective - Vital Signs Vital signs: Vital Signs - 12hr 01/31/19 01/31/19 01/31/19 04:50 05:46 08:35 Temperature 98.5 F 98.4 F Pulse Rate 76 77 74 Respiratory 20 18 Rate Blood Pressure 130/85 137/86 O2 Sat by Pulse 99 98 Oximetry 01/31/19 01/31/19 09:00 09:01 Temperature Pulse Rate 74 Respiratory 24 Rate Blood Pressure O2 Sat by Pulse 99 Oximetry - General Appearance General appearance: well-developed, well-nourished, appears stated age EENT: PERRL, mucous membranes moist Neck: no JVD, no thyromegaly, no carotid bruit, supple Respiratory: Present: Rales (bibasilar crackles) Cardiology: regular, normal heart rate, S1S2, no murmurs Gastrointestinal: normal, normoactive bowel sounds Integumentary: other (2+ edema) - Lab 01/30/19 04:34 01/31/19 04:13 Most recent lab results Calcium 8.4 mg/dL (8.4-10.2) 01/31/19 04:13 Phosphorus 4.10 mg/dL (2.5-4.5) 01/28/19 04:56 Magnesium 1.70 mg/dL (1.7-2.3) 01/28/19 04:56 51.1 mg/dL (0.1-20.0) H 01/28/19 15:55 82 mg/dL (5-11.8) H 01/28/19 15:55 Medications & Allergies - Medications Allergies/Adverse Reactions: Allergies No Known Allergies Allergy (Unverified 10/21/18 19:15) Home Medications: Home Medications Medication Instructions Recorded Confirmed Last Taken Type Acetaminophen [Acetaminophen TAB] 650 mg PO Q4H PRN #15 tablet 10/24/18 01/26/19 01/25/19 Rx Insulin NPH/Regular [NovoLIN 70/30] 20 unit SUB-Q BID #100 units 10/24/18 01/26/19 01/25/19 Rx Insulin Regular, Human [HumuLIN R] 1 dose SUB-Q ACHS PRN #100 units 10/24/18 01/26/19 01/25/19 Rx Lisinopril [Zestril TAB] 10 mg PO DAILY 01/26/19 01/26/19 01/25/19 History 10 mg amLODIPine [Norvasc] 10 mg PO DAILY 01/26/19 01/26/19 01/25/19 History 10 mg Active Medications: Generic Name Dose Route Start Last Admin Trade Name Freq PRN Reason Stop Dose Admin Acetaminophen 650 mg 01/26/19 11:08 Tylenol PO Q4H PRN Non Cardiac Pain or Temp>100.5 Albumin Human 25 gm 01/30/19 18:00 01/31/19 11:43 Alburx 25% (Albumin) IV 25 gm Q8H JAMIE Administration Amlodipine Besylate 10 mg 01/26/19 14:00 01/31/19 11:05 Norvasc PO 10 mg DAILY JAMIE Administration Lipase/Protease/Amylase 6 each 01/26/19 16:30 01/31/19 08:[address] 12,000 Units PO 6 each AC JAMIE Administration Aspirin 81 mg 01/27/19 10:00 01/31/19 11:05 Baby Aspirin PO 81 mg QDAY JAMIE Administration Carvedilol 6.25 mg 01/26/19 15:00 01/31/19 11:05 Coreg PO 6.25 mg BID JAMIE Administration Dextrose 50 ml 01/26/19 11:09 01/26/19 13:03 D50w (25gm) Syringe IV 50 ml PRN PRN Administration Hypoglycemia Guaifenesin 10 ml 01/27/19 14:32 Guaifenesin Dm Syrup PO Q4H PRN Cough Hydralazine HCl 10 mg 01/26/19 15:24 Apresoline IV Q4HR PRN Hypertension Insulin Human Isoph/Insulin Regular 20 unit 01/26/19 22:00 01/31/19 11:06 Humulin 70/30 SUB-Q 20 unit BID JAMIE Administration Insulin Human Lispro 0 unit 01/26/19 11:30 01/31/19 08:45 Humalog SUB-Q Not Given ACHS [facility] Protocol Lorazepam 2 mg 01/26/19 11:04 Ativan IV Q1H PRN CIWA-Ar 8-15 Nitroglycerin 0.4 mg 01/26/19 11:04 Nitrostat SL .Q5MIN PRN Chest Pain Ondansetron HCl 4 mg 01/26/19 11:04 Zofran IV Q8H PRN Nausea And Vomiting Sodium Bicarbonate 1,300 mg 01/30/19 11:00 01/31/19 11:05 Sodium Bicarbonate PO 1,300 mg BID JAMIE Administration Sodium Chloride 10 ml 01/26/19 22:00 01/31/19 11:07 Sodium Chloride Flush Syringe 10 Ml IV 10 ml BID JAMIE Administration Sodium Chloride 10 ml 01/26/19 11:04 01/31/19 02:57 Sodium Chloride Flush Syringe 10 Ml IV 10 ml PRN PRN Administration LINE FLUSH Zolpidem Tartrate 5 mg 01/27/19 22:00 01/30/19 23:24 Ambien PO 5 mg QHS PRN Administration Sleep
--- NOTE | 2019-01-31 17:05 | Progress Note ---
Assessment and Plan Assessment and plan: --Non-ST elevated VA type II; Management per cardiology,negative stress test --Hypokalemia; Hypomagnesemia; corrected --Acute mild systolic congestive heart failure , EF 45-50% On anti-failure medications, IV Lasix and beta blockers Input output monitoring, low sodium diet fluid restriction Cardiology is following the patient, --Acute kidney injury secondary to ATN,worsening renal function Monitor renal function, avoid nephrotoxins, nephrology following --Hypertensive urgency; present on admission The pressure well controlled, continue current antihypertensives --Diabetes mellitus; Well-controlled, Accu-Chek sliding scale coverage and ADA diet and insulin Avoid hypoglycemic episodes, diabetic diet, diabetic education --Peripheral vascular disease; 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 --Prior history of EtOH dependence; patient advised to quit alcohol intake --Chronic pancreatitis; stable --Anemia of chronic disease; monitor H&H transfuse as needed Iron supplements --Medical noncompliance; strongly advised to comply with medications diet and follow-up visits Patient verbalized understanding Stable to be transferred out of telemetry to medical floor Consults and recommendations noted History Interval history: Patient seen and examined medical records reviewed New events reported by the nursing staff Patient continues to have shortness of breath Vital signs noted Hospitalist Physical - Constitutional Vitals: Temp Pulse Resp BP Pulse Ox 98.4 F 74 24 137/86 99 01/31/19 08:35 01/31/19 09:00 01/31/19 09:01 01/31/19 08:35 01/31/19 09:01 General appearance: Present: no acute distress, well-nourished - EENT Eyes: Present: PERRL, EOM intact - Neck Neck: Present: supple, normal ROM - Respiratory Respiratory effort: normal Respiratory: bilateral: diminished, rales, negative: rhonchi, wheezing - Cardiovascular Rhythm: regular Heart Sounds: Present: S1 & S2 - Extremities Extremities: no ischemia Extremity abnormal: edema - Abdominal General gastrointestinal: soft, non-tender, non-distended, normal bowel sounds - Integumentary Integumentary: Present: clear, warm - Psychiatric Psychiatric: appropriate mood/affect, cooperative - Neurologic Neurologic: CNII-XII intact Results - Labs CBC & Chem 7: 01/30/19 04:34 01/31/19 04:13 Labs: Laboratory Last Values WBC 5.5 K/mm3 (4.5-11.0) 01/27/19 06:05 RBC 3.09 M/mm3 (3.65-5.03) L 01/27/19 06:05 Hgb 8.1 gm/dl (11.8-15.2) L 01/30/19 04:34 Hct 25.5 % (35.5-45.6) L 01/30/19 04:34 MCV 82 fl (84-94) L 01/27/19 06:05 MCH 27 pg (28-32) L 01/27/19 06:05 MCHC 33 % (32-34) 01/27/19 06:05 RDW 14.8 % (13.2-15.2) 01/27/19 06:05 Plt Count 174 K/mm3 (140-440) 01/30/19 04:34 Lymph % (Auto) 20.4 % (13.4-35.0) 01/27/19 06:05 Barnes % (Auto) 5.9 % (0.0-7.3) 01/27/19 06:05 Eos % (Auto) 5.1 % (0.0-4.3) H 01/27/19 06:05 Baso % (Auto) 0.7 % (0.0-1.8) 01/27/19 06:05 Lymph # 1.1 K/mm3 (1.2-5.4) L 01/27/19 06:05 Barnes # 0.3 K/mm3 (0.0-0.8) 01/27/19 06:05 Eos # 0.3 K/mm3 (0.0-0.4) 01/27/19 06:05 Baso # 0.0 K/mm3 (0.0-0.1) 01/27/19 06:05 Seg Neutrophils % 67.9 % (40.0-70.0) 01/27/19 06:05 Seg Neutrophils # 3.8 K/mm3 (1.8-7.7) 01/27/19 06:05 PT 15.4 Sec. (12.2-14.9) H 01/26/19 23:17 INR 1.15 (0.87-1.13) H 01/26/19 23:17 APTT 88.4 Sec. (24.2-36.6) H* 01/26/19 23:17 Heparin Anti-Xa Level 0.33 U.I./ml (0.3-0.7) 01/28/19 12:28 Sodium 143 mmol/L (137-145) 01/31/19 04:13 Potassium 4.3 mmol/L (3.6-5.0) 01/31/19 04:13 Chloride 107.9 mmol/L (98-107) H 01/31/19 04:13 Carbon Dioxide 22 mmol/L (22-30) 01/31/19 04:13 17 mmol/L 01/31/19 04:13 BUN 43 mg/dL (9-20) H 01/31/19 04:13 2.5 mg/dL (0.8-1.5) H 01/31/19 04:13 Estimated GFR 33 ml/min 01/31/19 04:13 17 % 01/31/19 04:13 Glucose 254 mg/dL (75-100) H 01/31/19 04:13 POC Glucose 59 (70-105) L 01/31/19 16:36 Calcium 8.4 mg/dL (8.4-10.2) 01/31/19 04:13 Phosphorus 4.10 mg/dL (2.5-4.5) 01/28/19 04:56 Magnesium 1.70 mg/dL (1.7-2.3) 01/28/19 04:56 0.20 mg/dL (0.1-1.2) 01/26/19 08:09 < 0.2 mg/dL (0-0.2) 01/26/19 08:09 0.0 mg/dL 01/26/19 08:09 AST 45 units/L (5-40) H 01/26/19 08:09 ALT 49 units/L (7-56) 01/26/19 08:09 210 units/L (35-129) H 01/26/19 08:09 1181 units/L (55-170) H 01/31/19 04:13 CK-MB (CK-2) 15.4 ng/mL (0.0-4.0) H 01/26/19 17:54 CK-MB (CK-2) Rel Index 0.9 (0-4) 01/26/19 17:54 0.282 ng/mL (0.00-0.029) H* 01/26/19 17:54 NT-Pro-B Natriuret Pep 66339 pg/mL (0-900) H 01/31/19 04:13 5.4 g/dL (6.3-8.2) L 01/26/19 08:09 2.8 g/dL (3.9-5) L 01/26/19 08:09 1.1 % 01/26/19 08:09 Triglycerides 44 mg/dL (2-149) 01/26/19 08:17 Cholesterol 154 mg/dL (50-199) 01/26/19 08:17 72 mg/dL (50-130) 01/26/19 08:17 78 mg/dL (40-59) H 01/26/19 08:17 1.97 % 01/26/19 08:17 51.1 mg/dL (0.1-20.0) H 01/28/19 15:55 82 mg/dL (5-11.8) H 01/28/19 15:55 Active Medications - Current Medications Current Medications: Generic Name Dose Route Start Last Admin Trade Name Freq PRN Reason Stop Dose Admin Acetaminophen 650 mg 01/26/19 11:08 Tylenol PO Q4H PRN Non Cardiac Pain or Temp>100.5 Albumin Human 25 gm 01/31/19 18:00 Alburx 25% (Albumin) IV Q12H [facility] Amlodipine Besylate 10 mg 01/26/19 14:00 01/31/19 11:05 Norvasc PO 10 mg DAILY JAMIE Administration Lipase/Protease/Amylase 6 each 01/26/19 16:30 01/31/19 08:56 Alex Espinoza 12,000 Units PO 6 each AC JAMIE Administration Aspirin 81 mg 01/27/19 10:00 01/31/19 11:05 Baby Aspirin PO 81 mg QDAY JAMIE Administration Bumetanide 2 mg 01/31/19 18:00 Bumex IV BID@0600,1800 JAMIE Carvedilol 6.25 mg 01/26/19 15:00 01/31/19 11:05 Coreg PO 6.25 mg BID JAMIE Administration Dextrose 50 ml 01/26/19 11:09 01/26/19 13:03 D50w (25gm) Syringe IV 50 ml PRN PRN Administration Hypoglycemia Guaifenesin 10 ml 01/27/19 14:32 Guaifenesin Dm Syrup PO Q4H PRN Cough Hydralazine HCl 10 mg 01/26/19 15:24 Apresoline IV Q4HR PRN Hypertension Insulin Human Isoph/Insulin Regular 20 unit 01/26/19 22:00 01/31/19 11:06 Humulin 70/30 SUB-Q 20 unit BID JAMIE Administration Insulin Human Lispro 0 unit 01/26/19 11:30 01/31/19 08:45 Humalog SUB-Q Not Given ACHS [facility] Protocol Lorazepam 2 mg 01/26/19 11:04 Ativan IV Q1H PRN CIWA-Ar 8-15 Nitroglycerin 0.4 mg 01/26/19 11:04 Nitrostat SL .Q5MIN PRN Chest Pain Ondansetron HCl 4 mg 01/26/19 11:04 Zofran IV Q8H PRN Nausea And Vomiting Sodium Bicarbonate 1,300 mg 01/30/19 11:00 01/31/19 11:05 Sodium Bicarbonate PO 1,300 mg BID JAMIE Administration Sodium Chloride 10 ml 01/26/19 22:00 01/31/19 11:07 Sodium Chloride Flush Syringe 10 Ml IV 10 ml BID JAMIE Administration Sodium Chloride 10 ml 01/26/19 11:04 01/31/19 02:57 Sodium Chloride Flush Syringe 10 Ml IV 10 ml PRN PRN Administration LINE FLUSH Zolpidem Tartrate 5 mg 01/27/19 22:00 01/30/19 23:24 Ambien PO 5 mg QHS PRN Administration Sleep Nutrition/Malnutrition Assess - Dietary Evaluation Nutrition/Malnutrition Findings: Nutrition Notes Start: 01/27/19 15:49 Freq: Status: Active Protocol: Document 01/28/19 16:26 RM (Rec: 01/28/19 16:30 RM [id number]) Nutrition Notes Initial or Follow up Brief Note Current Diagnosis Heart Failure Other Pertinent Diagnosis PVD, Chronic pancreatitis, Medical noncompliance, R foot amputation Current Diet Renal, Cardiac Labs/Tests Reviewed Pertinent Medications Lasix Height 5 ft 10 in Weight 92.5 kg Usual Body Weight 81.82 kg [place] Body Weight (kg) 75.45 BMI 29.2 Subjective/Other Information 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 Stated that he eats all of his meals here and requested more food. Noted lunch at bedside w/100% eaten. Network Services Project Manager agreed to provide double portion of protein. Pt stated that his UBW was 180 lbs 1 month ago. No temporal or orbital wasting . Pt declined DM diet education. Burn Absent Trauma Absent Nutrition Intervention Change Diet Order: Renal,Cardiac w/double protein Revisit per MD consult or patient Sign Off request:
[2019-01-31] MEDS: BUMEX IV SCH (18:06)
[2019-01-31] MEDS ORDERED: PROVENTIL IH PRN (22:33)
[2019-01-31] MEDS: AMBIEN PO PRN (22:53)
[2019-02-01 05:51] LABS: Hematocrit 23.9 % (35.5-45.6); Hemoglobin 7.7 gm/dl (11.8-15.2)
[2019-02-01 06:07] LABS: Calcium 8.7 mg/dL (8.4-10.2)
[2019-02-01] MEDS: ALBURX 25% (ALBUMIN) IV SCH ×2 (06:08→17:01)
[2019-02-01] MEDS: BUMEX IV SCH ×2 (08:14→17:32)
[2019-02-01] MEDS: HumaLOG SUB-Q SCH ×4 (08:18→22:07)
[2019-02-01] MEDS: CREON DR 12,000 UNITS PO SCH ×3 (08:22→16:49)
[2019-02-01] MEDS: BABY ASPIRIN PO SCH (10:15)
[2019-02-01] MEDS: COREG PO SCH ×2 (10:15→21:41)
[2019-02-01] MEDS: SODIUM BICARBONATE PO SCH ×2 (10:15→21:42)
[2019-02-01] MEDS: NORVASC PO SCH (10:16)
[2019-02-01] MEDS: SODIUM CHLORIDE FLUSH SYRINGE 10 ML IV SCH ×2 (10:17→21:43)
--- NOTE | 2019-02-01 11:36 | Progress Note ---
Assessment and Plan Impression * Acute renal failure * Congestive heart failure * Anasarca * Uncontrolled hypertension * Diabetes Recommendations * Etiology of his acute kidney injury unclear. His baseline creatinine is approximately 1.2-1.4 * Follow up results of vasculitis workup * Patient is clinically volume overloaded * Continue IV Bumex with albumin * Awaiting results of renal ultrasound * Monitor fluid status and electrolytes closely * If patient has inadequate response to diuretics, may need to consider renal replacement therapy Subjective Date of service: 02/01/19 Principal diagnosis: HF Interval history: Patient feels a little bit better today. States that his shortness of breath is improving. No nausea or vomiting Objective - Vital Signs Vital signs: Vital Signs - 12hr 02/01/19 02/01/19 02/01/19 05:18 10:15 10:16 Temperature 99.0 F Pulse Rate 76 Respiratory 20 Rate Blood Pressure 140/92 154/95 154/95 O2 Sat by Pulse 100 Oximetry - General Appearance General appearance: well-developed, well-nourished, appears stated age EENT: PERRL, mucous membranes moist Neck: no JVD, no thyromegaly, no carotid bruit, supple Respiratory: Present: Decreased Breath Sounds (at the bases) Cardiology: regular, normal heart rate Gastrointestinal: normal, normoactive bowel sounds Integumentary: other (2+ pitting edema bilaterally) - Lab 02/01/19 05:27 02/01/19 05:27 Most recent lab results Calcium 8.7 mg/dL (8.4-10.2) 02/01/19 05:27 Phosphorus 4.10 mg/dL (2.5-4.5) 01/28/19 04:56 Magnesium 1.70 mg/dL (1.7-2.3) 01/28/19 04:56 51.1 mg/dL (0.1-20.0) H 01/28/19 15:55 82 mg/dL (5-11.8) H 01/28/19 15:55 Medications & Allergies - Medications Allergies/Adverse Reactions: Allergies No Known Allergies Allergy (Unverified 10/21/18 19:15) Home Medications: Home Medications Medication Instructions Recorded Confirmed Last Taken Type Acetaminophen [Acetaminophen TAB] 650 mg PO Q4H PRN #15 tablet 10/24/18 01/26/19 01/25/19 Rx Insulin NPH/Regular [NovoLIN 70/30] 20 unit SUB-Q BID #100 units 10/24/18 01/26/19 01/25/19 Rx Insulin Regular, Human [HumuLIN R] 1 dose SUB-Q ACHS PRN #100 units 10/24/18 01/26/19 01/25/19 Rx Lisinopril [Zestril TAB] 10 mg PO DAILY 01/26/19 01/26/19 01/25/19 History 10 mg amLODIPine [Norvasc] 10 mg PO DAILY 01/26/19 01/26/19 01/25/19 History 10 mg Active Medications: Generic Name Dose Route Start Last Admin Trade Name Freq PRN Reason Stop Dose Admin Acetaminophen 650 mg 01/26/19 11:08 Tylenol PO Q4H PRN Non Cardiac Pain or Temp>100.5 Albumin Human 25 gm 01/31/19 18:00 02/01/19 06:08 Alburx 25% (Albumin) IV 25 gm Q12H JAMIE Administration Albuterol 2.5 mg 01/31/19 22:33 Proventil IH Q4HRT PRN Shortness Of Breath Amlodipine Besylate 10 mg 01/26/19 14:00 02/01/19 10:16 Norvasc PO 10 mg DAILY JAMIE Administration Lipase/Protease/Amylase 6 each 01/26/19 16:30 02/01/19 08:22 Alex Espinoza 12,000 Units PO 6 each AC JAMIE Administration Aspirin 81 mg 01/27/19 10:00 02/01/19 10:15 Baby Aspirin PO 81 mg QDAY JAMIE Administration Bumetanide 2 mg 01/31/19 18:00 02/01/19 08:14 Bumex IV 2 mg BID@0600,1800 JAMIE Administration Carvedilol 6.25 mg 01/26/19 15:00 02/01/19 10:15 Coreg PO 6.25 mg BID JAMIE Administration Dextrose 50 ml 01/26/19 11:09 01/26/19 13:03 D50w (25gm) Syringe IV 50 ml PRN PRN Administration Hypoglycemia Guaifenesin 10 ml 01/27/19 14:32 Guaifenesin Dm Syrup PO Q4H PRN Cough Hydralazine HCl 10 mg 01/26/19 15:24 Apresoline IV Q4HR PRN Hypertension Insulin Human Isoph/Insulin Regular 20 unit 01/26/19 22:00 02/01/19 10:16 Humulin 70/30 SUB-Q Not Given BID JAMIE Insulin Human Lispro 0 unit 01/26/19 11:30 02/01/19 08:18 Humalog SUB-Q Not Given ACHS [facility] Protocol Lorazepam 2 mg 01/26/19 11:04 Ativan IV Q1H PRN CIWA-Ar 8-15 Nitroglycerin 0.4 mg 01/26/19 11:04 Nitrostat SL .Q5MIN PRN Chest Pain Ondansetron HCl 4 mg 01/26/19 11:04 Zofran IV Q8H PRN Nausea And Vomiting Sodium Bicarbonate 1,300 mg 01/30/19 11:00 02/01/19 10:15 Sodium Bicarbonate PO 1,300 mg BID JAMIE Administration Sodium Chloride 10 ml 01/26/19 22:00 02/01/19 10:17 Sodium Chloride Flush Syringe 10 Ml IV 10 ml BID JAMIE Administration Sodium Chloride 10 ml 01/26/19 11:04 01/31/19 02:57 Sodium Chloride Flush Syringe 10 Ml IV 10 ml PRN PRN Administration LINE FLUSH Zolpidem Tartrate 5 mg 01/27/19 22:00 01/31/19 22:53 Ambien PO 5 mg QHS PRN Administration Sleep
--- NOTE | 2019-02-01 11:38 | Progress Note ---
Assessment and Plan Yesterday blood pressures controlled this morning's elevated continue the carvedilol and amlodipine if it still continued tomorrow we'll change to hydralazine and nitrates and on diuretics as per renal - Patient Problems (1) Acute HFrEF (heart failure with reduced ejection fraction) Current Visit: Yes Status: Acute (2) Cardiomyopathy, alcoholic Current Visit: Yes Status: Acute (3) Dependent edema Current Visit: Yes Status: Acute (4) NSTEMI (non-ST elevated myocardial infarction) Current Visit: Yes Status: Acute (5) Type 2 myocardial infarction Current Visit: Yes Status: Acute (6) Diabetes Current Visit: Yes Status: Chronic Qualifiers: Diabetes mellitus type: type 1 Diabetes mellitus complication status: with circulatory complication Diabetes mellitus complication detail: with other circulatory complications Qualified Code(s): E10.59 - Type 1 diabetes mellitus with other circulatory complications (7) PVD (peripheral vascular disease) Current Visit: Yes Status: Chronic (8) Hypertension Current Visit: No Status: Acute Qualifiers: Hypertension type: essential hypertension Qualified Code(s): I10 - Essential (primary) hypertension (9) Uncontrolled diabetes mellitus Current Visit: No Status: Acute Qualifiers: Diabetes mellitus type: type 1 Glycemic state: with hyperglycemia Qualified Code(s): E10.65 - Type 1 diabetes mellitus with hyperglycemia Subjective Date of service: 02/01/19 Principal diagnosis: HF Interval history: Shortness of breath has mildly improved Objective Vital Signs Temp Pulse Pulse Resp BP Pulse Ox 02/01/19 11:07 98.5 F 84 18 161/100 98 02/01/19 10:18 82 18 154/95 100 02/01/19 10:16 154/95 02/01/19 10:15 154/95 02/01/19 05:18 99.0 F 76 20 140/92 100 01/31/19 22:42 78 123/78 01/31/19 22:07 98.7 F 77 16 141/90 100 01/31/19 22:00 78 20 100 01/31/19 17:02 98.6 F 75 18 126/83 97 01/31/19 13:11 98.0 F 75 16 97/64 97 - Physical Examination General: No Apparent Distress HEENT: Positive: PERRL, Normocephaly, Mucus Membranes Moist Neck: Positive: neck supple, JVD/HJR Cardiac: Positive: Reg Rate and Rhythm Lungs: Positive: clear to auscultation Neuro: Positive: Grossly Intact Abdomen: Negative: Tender Skin: Negative: Rash Musculoskeletal: other (partial left foot amputation ) Extremities: Present: +2 Edema - Labs and Meds CBC 02/01/19 Range/Units 05:27 Hgb 7.7 L (11.8-15.2) gm/dl Hct 23.9 L (35.5-45.6) % Plt Count 153 (140-440) K/mm3 Comprehensive Metabolic Panel 02/01/19 Range/Units 05:27 Sodium 144 (137-145) mmol/L Potassium 4.5 (3.6-5.0) mmol/L Chloride 108.6 H (98-107) mmol/L Carbon Dioxide 23 (22-30) mmol/L BUN 48 H (9-20) mg/dL Creatinine 2.6 H (0.8-1.5) mg/dL Glucose 102 H (75-100) mg/dL Calcium 8.7 (8.4-10.2) mg/dL - Imaging and Cardiology EKG: report reviewed, image reviewed Echo: report reviewed (EF 45-50%, mild LVH, restrictive diastolic filling, LA mildly dilated, RV mod dilated, RV systolic function mildly reduced, RA mildly dilated, trace MR, mild TR, RVSP 56mmHg, small pericardial effusion that does not appear to be hemodynamically significant. ) - Telemetry EKG Rhythm: Sinus Rhythm - EKG Sinus rhythms and dysrhythmias: sinus rhythm
--- NOTE | 2019-02-01 12:59 | Progress Note ---
Assessment and Plan Assessment and plan: --Hypertensive urgency; present on admission Moderate controlled, continue carvedilol and amlodipine Had her dose hydralazine, closely monitor --Non-ST elevated [place] type II; stress test no ischemia Mild systolic dysfunction EF 45-50% Continue current cardiac medications --Hypokalemia; Hypomagnesemia; corrected --Acute mild systolic congestive heart failure , EF 45-50% On anti-failure medications, IV Lasix and beta blockers Input output monitoring, low sodium diet fluid restriction Cardiology is following the patient, --Acute kidney injury secondary to ATN,worsening renal function Monitor renal function, avoid nephrotoxins, nephrology following --Diabetes mellitus; Well-controlled, Accu-Chek sliding scale coverage and ADA diet and insulin Avoid hypoglycemic episodes, diabetic diet, diabetic education --Peripheral vascular disease; 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 --Prior history of EtOH dependence; patient advised to quit alcohol intake --Chronic pancreatitis; stable --Anemia of chronic disease; mild drop in H&H transfuse as needed Iron supplements --Medical noncompliance; strongly advised to comply with medications diet and follow-up visits, Patient verbalized understanding Stable to be transferred out of telemetry to medical floor Consults and recommendations noted History Interval history: Patient seen and examined medical records reviewed Patient feels slightly better, complains of mild shortness of breath Alert awake oriented 3 Vital signs noted, blood pressure moderately controlled Hospitalist Physical - Constitutional Vitals: Temp Pulse Resp BP Pulse Ox 98.5 F 84 18 161/100 98 02/01/19 11:07 02/01/19 11:07 02/01/19 11:07 02/01/19 11:07 02/01/19 11:07 General appearance: Present: no acute distress, well-nourished - EENT Eyes: Present: PERRL, EOM intact - Neck Neck: Present: supple, normal ROM - Respiratory Respiratory effort: normal Respiratory: bilateral: diminished, negative: rales, rhonchi, wheezing - Cardiovascular Rhythm: regular Heart Sounds: Present: S1 & S2 - Extremities Extremities: no ischemia, No edema - Abdominal General gastrointestinal: soft, non-tender, non-distended, normal bowel sounds - Integumentary Integumentary: Present: clear, warm - Psychiatric Psychiatric: appropriate mood/affect, cooperative - Neurologic Neurologic: CNII-XII intact, moves all extremities Results - Labs CBC & Chem 7: 02/01/19 05:27 02/01/19 05:27 Labs: Laboratory Last Values WBC 5.5 K/mm3 (4.5-11.0) 01/27/19 06:05 RBC 3.09 M/mm3 (3.65-5.03) L 01/27/19 06:05 Hgb 7.7 gm/dl (11.8-15.2) L 02/01/19 05:27 Hct 23.9 % (35.5-45.6) L 02/01/19 05:27 MCV 82 fl (84-94) L 01/27/19 06:05 MCH 27 pg (28-32) L 01/27/19 06:05 MCHC 33 % (32-34) 01/27/19 06:05 RDW 14.8 % (13.2-15.2) 01/27/19 06:05 Plt Count 153 K/mm3 (140-440) 02/01/19 05:27 Lymph % (Auto) 20.4 % (13.4-35.0) 01/27/19 06:05 [place] % (Auto) 5.9 % (0.0-7.3) 01/27/19 06:05 Eos % (Auto) 5.1 % (0.0-4.3) H 01/27/19 06:05 Baso % (Auto) 0.7 % (0.0-1.8) 01/27/19 06:05 Lymph # 1.1 K/mm3 (1.2-5.4) L 01/27/19 06:05 [place] # 0.3 K/mm3 (0.0-0.8) 01/27/19 06:05 Eos # 0.3 K/mm3 (0.0-0.4) 01/27/19 06:05 Baso # 0.0 K/mm3 (0.0-0.1) 01/27/19 06:05 Seg Neutrophils % 67.9 % (40.0-70.0) 01/27/19 06:05 Seg Neutrophils # 3.8 K/mm3 (1.8-7.7) 01/27/19 06:05 PT 15.4 Sec. (12.2-14.9) H 01/26/19 23:17 INR 1.15 (0.87-1.13) H 01/26/19 23:17 APTT 88.4 Sec. (24.2-36.6) H* 01/26/19 23:17 Heparin Anti-Xa Level 0.33 U.I./ml (0.3-0.7) 01/28/19 12:28 Sodium 144 mmol/L (137-145) 02/01/19 05:27 Potassium 4.5 mmol/L (3.6-5.0) 02/01/19 05:27 Chloride 108.6 mmol/L (98-107) H 02/01/19 05:27 Carbon Dioxide 23 mmol/L (22-30) 02/01/19 05:27 17 mmol/L 02/01/19 05:27 BUN 48 mg/dL (9-20) H 02/01/19 05:27 2.6 mg/dL (0.8-1.5) H 02/01/19 05:27 Estimated GFR 32 ml/min 02/01/19 05:27 18 % 02/01/19 05:27 Glucose 102 mg/dL (75-100) H 02/01/19 05:27 POC Glucose 183 (70-105) H 02/01/19 11:18 Calcium 8.7 mg/dL (8.4-10.2) 02/01/19 05:27 Phosphorus 4.10 mg/dL (2.5-4.5) 01/28/19 04:56 Magnesium 1.70 mg/dL (1.7-2.3) 01/28/19 04:56 0.20 mg/dL (0.1-1.2) 01/26/19 08:09 < 0.2 mg/dL (0-0.2) 01/26/19 08:09 0.0 mg/dL 01/26/19 08:09 AST 45 units/L (5-40) H 01/26/19 08:09 ALT 49 units/L (7-56) 01/26/19 08:09 210 units/L (35-129) H 01/26/19 08:09 1181 units/L (55-170) H 01/31/19 04:13 CK-MB (CK-2) 15.4 ng/mL (0.0-4.0) H 01/26/19 17:54 CK-MB (CK-2) Rel Index 0.9 (0-4) 01/26/19 17:54 0.282 ng/mL (0.00-0.029) H* 01/26/19 17:54 NT-Pro-B Natriuret Pep 94007 pg/mL (0-900) H 02/01/19 05:27 5.4 g/dL (6.3-8.2) L 01/26/19 08:09 2.8 g/dL (3.9-5) L 01/26/19 08:09 1.1 % 01/26/19 08:09 Triglycerides 44 mg/dL (2-149) 01/26/19 08:17 Cholesterol 154 mg/dL (50-199) 01/26/19 08:17 72 mg/dL (50-130) 01/26/19 08:17 78 mg/dL (40-59) H 01/26/19 08:17 1.97 % 01/26/19 08:17 51.1 mg/dL (0.1-20.0) H 01/28/19 15:55 82 mg/dL (5-11.8) H 01/28/19 15:55 Active Medications - Current Medications Current Medications: Generic Name Dose Route Start Last Admin Trade Name Freq PRN Reason Stop Dose Admin Acetaminophen 650 mg 01/26/19 11:08 Tylenol PO Q4H PRN Non Cardiac Pain or Temp>100.5 Albumin Human 25 gm 01/31/19 18:00 02/01/19 06:08 Alburx 25% (Albumin) IV 25 gm Q12H JAMIE Administration Albuterol 2.5 mg 01/31/19 22:33 Proventil IH Q4HRT PRN Shortness Of Breath Amlodipine Besylate 10 mg 01/26/19 14:00 02/01/19 10:16 Norvasc PO 10 mg DAILY JAMIE Administration Lipase/Protease/Amylase 6 each 01/26/19 16:30 02/01/19 08:[address] 12,000 Units PO 6 each AC JAMIE Administration Aspirin 81 mg 01/27/19 10:00 02/01/19 10:15 Baby Aspirin PO 81 mg QDAY JAMIE Administration Bumetanide 2 mg 01/31/19 18:00 02/01/19 08:14 Bumex IV 2 mg BID@0600,1800 JAMIE Administration Carvedilol 6.25 mg 01/26/19 15:00 02/01/19 10:15 Coreg PO 6.25 mg BID JAMIE Administration Dextrose 50 ml 01/26/19 11:09 01/26/19 13:03 D50w (25gm) Syringe IV 50 ml PRN PRN Administration Hypoglycemia Guaifenesin 10 ml 01/27/19 14:32 Guaifenesin Dm Syrup PO Q4H PRN Cough Hydralazine HCl 10 mg 01/26/19 15:24 Apresoline IV Q4HR PRN Hypertension Insulin Human Isoph/Insulin Regular 20 unit 01/26/19 22:00 02/01/19 10:16 Humulin 70/30 SUB-Q Not Given BID JAIME Insulin Human Lispro 0 unit 01/26/19 11:30 02/01/19 08:18 Humalog SUB-Q Not Given ACHS [facility] Protocol Lorazepam 2 mg 01/26/19 11:04 Ativan IV Q1H PRN CIWA-Ar 8-15 Nitroglycerin 0.4 mg 01/26/19 11:04 Nitrostat SL .Q5MIN PRN Chest Pain Ondansetron HCl 4 mg 01/26/19 11:04 Zofran IV Q8H PRN Nausea And Vomiting Sodium Bicarbonate 1,300 mg 01/30/19 11:00 02/01/19 10:15 Sodium Bicarbonate PO 1,300 mg BID JAMIE Administration Sodium Chloride 10 ml 01/26/19 22:00 02/01/19 10:17 Sodium Chloride Flush Syringe 10 Ml IV 10 ml BID JAMIE Administration Sodium Chloride 10 ml 01/26/19 11:04 01/31/19 02:57 Sodium Chloride Flush Syringe 10 Ml IV 10 ml PRN PRN Administration LINE FLUSH Zolpidem Tartrate 5 mg 01/27/19 22:00 01/31/19 22:53 Ambien PO 5 mg QHS PRN Administration Sleep Nutrition/Malnutrition Assess - Dietary Evaluation Nutrition/Malnutrition Findings: Nutrition Notes Start: 01/27/19 15:49 Freq: Status: Active Protocol: Document 01/28/19 16:26 RM (Rec: 01/28/19 16:30 RM [id number]) Nutrition Notes Initial or Follow up Brief Note Current Diagnosis Heart Failure Other Pertinent Diagnosis PVD, Chronic pancreatitis, Medical noncompliance, R foot amputation Current Diet Renal, Cardiac Labs/Tests Reviewed Pertinent Medications Lasix Height 5 ft 10 in Weight 92.5 kg Usual Body Weight 81.82 kg [place] Body Weight (kg) 75.45 BMI 29.2 Subjective/Other Information Pt stated that [employer] his appetite was good and that he ate 2-3 meals daily. Stated that he eats all of his meals here and requested more food. Noted lunch at bedside w/100% eaten. Gear Hobber agreed to provide double portion of protein. Pt stated that his UBW was 180 lbs 1 month ago. No temporal or orbital wasting . Pt declined DM diet education. Burn Absent Trauma Absent Nutrition Intervention Change Diet Order: Renal,Cardiac w/double protein Revisit per MD consult or patient Sign Off request:
[2019-02-01] MEDS: APRESOLINE PO SCH (21:40)
[2019-02-01] MEDS: AMBIEN PO PRN (21:40)
[2019-02-02] MEDS: ALBURX 25% (ALBUMIN) IV SCH ×2 (06:21→18:19)
[2019-02-02] MEDS: BUMEX IV SCH ×2 (06:47→18:38)
[2019-02-02] MEDS: APRESOLINE PO SCH ×3 (07:06→22:22)
[2019-02-02] MEDS: HumaLOG SUB-Q SCH ×4 (07:54→22:24)
[2019-02-02] MEDS: CREON DR 12,000 UNITS PO SCH ×3 (08:39→17:29)
[2019-02-02] MEDS: COREG PO SCH ×2 (09:17→22:22)
[2019-02-02] MEDS: BABY ASPIRIN PO SCH (09:17)
[2019-02-02] MEDS: SODIUM BICARBONATE PO SCH ×2 (09:17→22:21)
[2019-02-02] MEDS: NORVASC PO SCH (09:18)
[2019-02-02] MEDS: SODIUM CHLORIDE FLUSH SYRINGE 10 ML IV SCH ×2 (09:18→22:27)
[2019-02-02 09:37] LABS: Calcium 8.6 mg/dL (8.4-10.2)
--- NOTE | 2019-02-02 10:55 | Progress Note ---
Assessment and Plan diurects as per renal, for mild lv dsyfunction ef 45% change to hydralzine 50mg bid and imdur and coreg and norvasc for bp and stable from [facility] point of view - Patient Problems (1) Acute HFrEF (heart failure with reduced ejection fraction) Current Visit: Yes Status: Acute (2) Cardiomyopathy, alcoholic Current Visit: Yes Status: Acute (3) Dependent edema Current Visit: Yes Status: Acute (4) NSTEMI (non-ST elevated myocardial infarction) Current Visit: Yes Status: Acute (5) Type 2 myocardial infarction Current Visit: Yes Status: Acute (6) Diabetes Current Visit: Yes Status: Chronic Qualifiers: Diabetes mellitus type: type 1 Diabetes mellitus complication status: with circulatory complication Diabetes mellitus complication detail: with other circulatory complications Qualified Code(s): E10.59 - Type 1 diabetes mellitus with other circulatory complications (7) PVD (peripheral vascular disease) Current Visit: Yes Status: Chronic (8) Hypertension Current Visit: No Status: Acute Qualifiers: Hypertension type: essential hypertension Qualified Code(s): I10 - Essential (primary) hypertension (9) Uncontrolled diabetes mellitus Current Visit: No Status: Acute Qualifiers: Diabetes mellitus type: type 1 Glycemic state: with hyperglycemia Qualified Code(s): E10.65 - Type 1 diabetes mellitus with hyperglycemia Subjective Date of service: 02/02/19 Principal diagnosis: HF Interval history: pt has swelling and fatigue, sob is better Objective Vital Signs Temp Pulse Pulse Pulse Resp Resp BP 02/02/19 09:18 145/87 02/02/19 09:17 145/87 02/02/19 08:22 02/02/19 07:06 80 137/75 02/02/19 04:10 97.9 F 75 20 156/93 02/02/19 00:21 98.2 F 79 20 137/75 02/01/19 22:44 02/01/19 22:40 79 18 02/01/19 22:35 75 18 02/01/19 22:00 72 72 20 02/01/19 21:41 80 150/100 02/01/19 21:40 80 159/100 02/01/19 16:43 98.6 F 78 16 144/95 02/01/19 11:07 98.5 F 84 18 161/100 Pulse Ox 02/02/19 09:18 02/02/19 09:17 02/02/19 08:22 98 02/02/19 07:06 02/02/19 04:10 97 02/02/19 00:21 99 02/01/19 22:44 98 02/01/19 22:40 02/01/19 22:35 02/01/19 22:00 100 02/01/19 21:41 02/01/19 21:40 02/01/19 16:43 99 02/01/19 11:07 98 - Physical Examination General: No Apparent Distress HEENT: Positive: PERRL, Normocephaly, Mucus Membranes Moist Neck: Positive: neck supple, JVD/HJR Cardiac: Positive: Reg Rate and Rhythm Lungs: Positive: clear to auscultation Neuro: Positive: Grossly Intact Abdomen: Negative: Tender Skin: Negative: Rash Musculoskeletal: other (partial left foot amputation ) Extremities: Present: +2 Edema - Labs and Meds Comprehensive Metabolic Panel 02/02/19 Range/Units 08:16 Sodium 141 (137-145) mmol/L Potassium 4.1 (3.6-5.0) mmol/L Chloride 105.5 (98-107) mmol/L Carbon Dioxide 23 (22-30) mmol/L BUN 48 H (9-20) mg/dL Creatinine 2.4 H (0.8-1.5) mg/dL Glucose 70 L (75-100) mg/dL Calcium 8.6 (8.4-10.2) mg/dL - Imaging and Cardiology EKG: report reviewed, image reviewed Echo: report reviewed (EF 45-50%, mild LVH, restrictive diastolic filling, LA mildly dilated, RV mod dilated, RV systolic function mildly reduced, RA mildly dilated, trace MR, mild TR, RVSP 56mmHg, small pericardial effusion that does not appear to be hemodynamically significant. ) - Telemetry EKG Rhythm: Sinus Rhythm - EKG Sinus rhythms and dysrhythmias: sinus rhythm
--- NOTE | 2019-02-02 11:38 | Progress Note ---
Assessment and Plan Impression * Acute renal failure * Congestive heart failure * Anasarca * Uncontrolled hypertension * Diabetes Recommendations * Etiology of his acute kidney injury unclear. His baseline creatinine is approximately 1.2-1.4 * Complement levels C3 and C4 both are normal. Follow up results of other vasculitis workup * Patient is clinically volume overloaded * Continue IV Bumex with albumin * Awaiting results of renal ultrasound * Monitor fluid status and electrolytes closely * If patient has inadequate response to diuretics, may need to consider renal replacement therapy Subjective Date of service: 02/02/19 Principal diagnosis: HF Interval history: Patient feels a little bit better today. States that his shortness of breath is improving. No nausea or vomiting Objective - Vital Signs Vital signs: Vital Signs - 12hr 02/02/19 02/02/19 02/02/19 00:21 04:10 07:06 Temperature 98.2 F 97.9 F Pulse Rate 79 75 80 Respiratory 20 20 Rate Blood Pressure 137/75 156/93 137/75 O2 Sat by Pulse 99 97 Oximetry 02/02/19 02/02/19 02/02/19 08:22 09:17 09:18 Temperature Pulse Rate Respiratory Rate Blood Pressure 145/87 145/87 O2 Sat by Pulse 98 Oximetry - General Appearance General appearance: well-developed, well-nourished, appears stated age EENT: PERRL, mucous membranes moist Neck: no JVD, no thyromegaly, no carotid bruit, supple Respiratory: Present: Rales (bibasilar crackles) Cardiology: regular, normal heart rate, S1S2, no murmurs Gastrointestinal: normal, normoactive bowel sounds Integumentary: no rash, other (1+ edema) - Lab 02/01/19 05:02/02/19 08:16 Most recent lab results Calcium 8.6 mg/dL (8.4-10.2) 02/02/19 08:16 Phosphorus 4.10 mg/dL (2.5-4.5) 01/28/19 04:56 Magnesium 1.70 mg/dL (1.7-2.3) 01/28/19 04:56 51.1 mg/dL (0.1-20.0) H 01/28/19 15:55 82 mg/dL (5-11.8) H 01/28/19 15:55 Medications & Allergies - Medications Allergies/Adverse Reactions: Allergies No Known Allergies Allergy (Unverified 10/21/18 19:15) Home Medications: Home Medications Medication Instructions Recorded Confirmed Last Taken Type Acetaminophen [Acetaminophen TAB] 650 mg PO Q4H PRN #15 tablet 10/24/18 01/26/19 01/25/19 Rx Insulin NPH/Regular [NovoLIN 70/30] 20 unit SUB-Q BID #100 units 10/24/18 01/26/19 01/25/19 Rx Insulin Regular, Human [HumuLIN R] 1 dose SUB-Q ACHS PRN #100 units 10/24/18 01/26/19 01/25/19 Rx Lisinopril [Zestril TAB] 10 mg PO DAILY 01/26/19 01/26/19 01/25/19 History 10 mg amLODIPine [Norvasc] 10 mg PO DAILY 01/26/19 01/26/19 01/25/19 History 10 mg Active Medications: Generic Name Dose Route Start Last Admin Trade Name Freq PRN Reason Stop Dose Admin Acetaminophen 650 mg 01/26/19 11:08 Tylenol PO Q4H PRN Non Cardiac Pain or Temp>100.5 Albumin Human 25 gm 01/31/19 18:00 02/02/19 06:21 Alburx 25% (Albumin) IV 25 gm Q12H JAMIE Administration Albuterol 2.5 mg 01/31/19 22:33 02/01/19 22:37 Proventil IH 2.5 mg Q4HRT PRN Administration Shortness Of Breath Amlodipine Besylate 10 mg 01/26/19 14:00 02/02/19 09:18 Norvasc PO 10 mg DAILY JAMIE Administration Lipase/Protease/Amylase 6 each 01/26/19 16:30 02/02/19 08:39 Alex Espinoza 12,000 Units PO 6 each AC JAMIE Administration Aspirin 81 mg 01/27/19 10:00 02/02/19 09:17 Baby Aspirin PO 81 mg QDAY JAMIE Administration Bumetanide 2 mg 01/31/19 18:00 02/02/19 06:47 Bumex IV 2 mg BID@0600,1800 JAMIE Administration Carvedilol 6.25 mg 01/26/19 15:00 02/02/19 09:17 Coreg PO 6.25 mg BID JAMIE Administration Dextrose 50 ml 01/26/19 11:09 01/26/19 13:03 D50w (25gm) Syringe IV 50 ml PRN PRN Administration Hypoglycemia Guaifenesin 10 ml 01/27/19 14:32 Guaifenesin Dm Syrup PO Q4H PRN Cough Hydralazine HCl 10 mg 01/26/19 15:24 Apresoline IV Q4HR PRN Hypertension Hydralazine HCl 50 mg 02/02/19 12:00 Apresoline PO BID JAMIE Insulin Human Isoph/Insulin Regular 20 unit 01/26/19 22:00 02/02/19 09:17 Humulin 70/30 SUB-Q 20 unit BID JAMIE Administration Insulin Human Lispro 0 unit 01/26/19 11:30 02/02/19 07:54 Humalog SUB-Q Not Given ACHS [facility] Protocol Isosorbide Mononitrate 30 mg 02/03/19 10:00 Imdur PO QDAY JAMIE Lorazepam 2 mg 01/26/19 11:04 Ativan IV Q1H PRN CIWA-Ar 8-15 Nitroglycerin 0.4 mg 01/26/19 11:04 Nitrostat SL .Q5MIN PRN Chest Pain Ondansetron HCl 4 mg 01/26/19 11:04 Zofran IV Q8H PRN Nausea And Vomiting Sodium Bicarbonate 1,300 mg 01/30/19 11:00 02/02/19 09:17 Sodium Bicarbonate PO 1,300 mg BID JAMIE Administration Sodium Chloride 10 ml 01/26/19 22:00 02/02/19 09:18 Sodium Chloride Flush Syringe 10 Ml IV 10 ml BID JAMIE Administration Sodium Chloride 10 ml 01/26/19 11:04 01/31/19 02:57 Sodium Chloride Flush Syringe 10 Ml IV 10 ml PRN PRN Administration LINE FLUSH Zolpidem Tartrate 5 mg 01/27/19 22:00 02/01/19 21:40 Ambien PO 5 mg QHS PRN Administration Sleep
--- NOTE | 2019-02-02 19:24 | Progress Note ---
Assessment and Plan Assessment and plan: --Acute mild systolic congestive heart failure , EF 45-50% On anti-failure medications, IV Lasix and beta blockers Input output monitoring, low sodium diet fluid restriction Cardiology is following the patient, --Acute kidney injury secondary to ATN, mild improvement of his renal function avoid nephrotoxins, nephrology following --Generalized anasarca and fluid overload, Continue diuretics input output monitoring Nephrology following --Hypertensive urgency; present on admission Moderate controlled, continue carvedilol and amlodipine Had her dose hydralazine, closely monitor --Non-ST elevated CA type II; stress test no ischemia Mild systolic dysfunction EF 45-50% Continue current cardiac medications --Hypokalemia; Hypomagnesemia; corrected --Diabetes mellitus; Well-controlled, Accu-Chek sliding scale coverage and ADA diet and insulin Avoid hypoglycemic episodes, diabetic diet, diabetic education --Peripheral vascular disease;Partial right foot amputation --Severe malnutrition/hypoalbuminemia; nutrition consult --Prior history of EtOH dependence; patient advised to quit alcohol intake --Chronic pancreatitis; stable --Anemia of chronic disease; mild drop in H&H transfuse as needed Iron supplements --Medical noncompliance; strongly advised to comply with medications diet and follow-up visits, Patient verbalized understanding Disposition; follow nephrology recommendations, possible discharge in 1-2 days if stable History Interval history: Patient seen and examined medical records reviewed Slightly better still has mild shortness of breath And significant lower extremity edema and puffiness face Denies chest pain Alert awake oriented 3 vital signs reviewed Hospitalist Physical - Constitutional Vitals: Temp Pulse Resp BP Pulse Ox 98.2 F 105 H 20 125/82 95 02/02/19 17:32 02/02/19 18:03 02/02/19 17:32 02/02/19 17:32 02/02/19 18:03 General appearance: Present: no acute distress, well-nourished - EENT Eyes: Present: PERRL, EOM intact - Neck Neck: Present: supple, normal ROM - Respiratory Respiratory effort: normal Respiratory: bilateral: diminished, rales, negative: rhonchi, wheezing - Cardiovascular Rhythm: regular Heart Sounds: Present: S1 & S2 - Extremities Extremities: no ischemia Extremity abnormal: edema - Abdominal General gastrointestinal: soft, non-tender, non-distended, normal bowel sounds - Integumentary Integumentary: Present: clear, warm - Psychiatric Psychiatric: appropriate mood/affect, cooperative - Neurologic Neurologic: CNII-XII intact, moves all extremities Results - Labs CBC & Chem 7: 02/03/19 07:23 02/06/19 05:58 Labs: Laboratory Last Values WBC 5.5 K/mm3 (4.5-11.0) 01/27/19 06:05 RBC 3.09 M/mm3 (3.65-5.03) L 01/27/19 06:05 Hgb 7.7 gm/dl (11.8-15.2) L 02/01/19 05:27 Hct 23.9 % (35.5-45.6) L 02/01/19 05:27 MCV 82 fl (84-94) L 01/27/19 06:05 MCH 27 pg (28-32) L 01/27/19 06:05 MCHC 33 % (32-34) 01/27/19 06:05 RDW 14.8 % (13.2-15.2) 01/27/19 06:05 Plt Count 153 K/mm3 (140-440) 02/01/19 05:27 Lymph % (Auto) 20.4 % (13.4-35.0) 01/27/19 06:05 [place] % (Auto) 5.9 % (0.0-7.3) 01/27/19 06:05 Eos % (Auto) 5.1 % (0.0-4.3) H 01/27/19 06:05 Baso % (Auto) 0.7 % (0.0-1.8) 01/27/19 06:05 Lymph # 1.1 K/mm3 (1.2-5.4) L 01/27/19 06:05 [place] # 0.3 K/mm3 (0.0-0.8) 01/27/19 06:05 Eos # 0.3 K/mm3 (0.0-0.4) 01/27/19 06:05 Baso # 0.0 K/mm3 (0.0-0.1) 01/27/19 06:05 Seg Neutrophils % 67.9 % (40.0-70.0) 01/27/19 06:05 Seg Neutrophils # 3.8 K/mm3 (1.8-7.7) 01/27/19 06:05 PT 15.4 Sec. (12.2-14.9) H 01/26/19 23:17 INR 1.15 (0.87-1.13) H 01/26/19 23:17 APTT 88.4 Sec. (24.2-36.6) H* 01/26/19 23:17 Heparin Anti-Xa Level 0.33 U.I./ml (0.3-0.7) 01/28/19 12:28 Sodium 141 mmol/L (137-145) 02/02/19 08:16 Potassium 4.1 mmol/L (3.6-5.0) 02/02/19 08:16 Chloride 105.5 mmol/L (98-107) 02/02/19 08:16 Carbon Dioxide 23 mmol/L (22-30) 02/02/19 08:16 17 mmol/L 02/02/19 08:16 BUN 48 mg/dL (9-20) H 02/02/19 08:16 2.4 mg/dL (0.8-1.5) H 02/02/19 08:16 Estimated GFR 35 ml/min 02/02/19 08:16 20 % 02/02/19 08:16 Glucose 70 mg/dL (75-100) L 02/02/19 08:16 POC Glucose 127 (70-105) H 02/02/19 17:38 Calcium 8.6 mg/dL (8.4-10.2) 02/02/19 08:16 Phosphorus 4.10 mg/dL (2.5-4.5) 01/28/19 04:56 Magnesium 1.70 mg/dL (1.7-2.3) 01/28/19 04:56 0.20 mg/dL (0.1-1.2) 01/26/19 08:09 < 0.2 mg/dL (0-0.2) 01/26/19 08:09 0.0 mg/dL 01/26/19 08:09 AST 45 units/L (5-40) H 01/26/19 08:09 ALT 49 units/L (7-56) 01/26/19 08:09 210 units/L (35-129) H 01/26/19 08:09 1181 units/L (55-170) H 01/31/19 04:13 CK-MB (CK-2) 15.4 ng/mL (0.0-4.0) H 01/26/19 17:54 CK-MB (CK-2) Rel Index 0.9 (0-4) 01/26/19 17:54 0.282 ng/mL (0.00-0.029) H* 01/26/19 17:54 NT-Pro-B Natriuret Pep 25655 pg/mL (0-900) H 02/01/19 05:27 5.4 g/dL (6.3-8.2) L 01/26/19 08:09 2.8 g/dL (3.9-5) L 01/26/19 08:09 1.1 % 01/26/19 08:09 Triglycerides 44 mg/dL (2-149) 01/26/19 08:17 Cholesterol 154 mg/dL (50-199) 01/26/19 08:17 72 mg/dL (50-130) 01/26/19 08:17 78 mg/dL (40-59) H 01/26/19 08:17 1.97 % 01/26/19 08:17 51.1 mg/dL (0.1-20.0) H 01/28/19 15:55 82 mg/dL (5-11.8) H 01/28/19 15:55 100 mg/dL (82-185) 01/28/19 16:28 31 mg/dL (15-53) 01/28/19 16:28 Active Medications - Current Medications Current Medications: Generic Name Dose Route Start Last Admin Trade Name Freq PRN Reason Stop Dose Admin Acetaminophen 650 mg 01/26/19 11:08 Tylenol PO Q4H PRN Non Cardiac Pain or Temp>100.5 Albumin Human 25 gm 01/31/19 18:00 02/02/19 18:19 Alburx 25% (Albumin) IV 25 gm Q12H JAMIE Administration Albuterol 2.5 mg 01/31/19 22:33 02/01/19 22:37 Proventil IH 2.5 mg Q4HRT PRN Administration Shortness Of Breath Amlodipine Besylate 10 mg 01/26/19 14:00 05/27/19 09:18 Norvasc PO 10 mg DAILY JAMIE Administration Lipase/Protease/Amylase 6 each 01/26/19 16:30 02/02/19 17:29 Alex Espinoza 12,000 Units PO 6 each AC JAMIE Administration Aspirin 81 mg 01/27/19 10:00 02/02/19 09:17 Baby Aspirin PO 81 mg QDAY JAMIE Administration Bumetanide 2 mg 01/31/19 18:00 02/02/19 18:38 Bumex IV 2 mg BID@0600,1800 JAMIE Administration Carvedilol 6.25 mg 01/26/19 15:00 02/02/19 09:17 Coreg PO 6.25 mg BID JAMIE Administration Dextrose 50 ml 01/26/19 11:09 01/26/19 13:03 D50w (25gm) Syringe IV 50 ml PRN PRN Administration Hypoglycemia Guaifenesin 10 ml 01/27/19 14:32 Guaifenesin Dm Syrup PO Q4H PRN Cough Hydralazine HCl 10 mg 01/26/19 15:24 Apresoline IV Q4HR PRN Hypertension Hydralazine HCl 50 mg 02/02/19 12:00 02/02/19 12:11 Apresoline PO 50 mg BID JAMIE Administration Insulin Human Isoph/Insulin Regular 20 unit 01/26/19 22:00 02/02/19 09:17 Humulin 70/30 SUB-Q 20 unit BID JAMIE Administration Insulin Human Lispro 0 unit 01/26/19 11:30 02/02/19 17:33 Humalog SUB-Q Not Given ACHS [facility] Protocol Isosorbide Mononitrate 30 mg 02/03/19 10:00 Imdur PO QDAY JAMIE Lorazepam 2 mg 01/26/19 11:04 Ativan IV Q1H PRN CIWA-Ar 8-15 Nitroglycerin 0.4 mg 01/26/19 11:04 Nitrostat SL .Q5MIN PRN Chest Pain Ondansetron HCl 4 mg 01/26/19 11:04 Zofran IV Q8H PRN Nausea And Vomiting Sodium Bicarbonate 1,300 mg 01/30/19 11:00 02/02/19 09:17 Sodium Bicarbonate PO 1,300 mg BID JAMIE Administration Sodium Chloride 10 ml 01/26/19 22:00 02/02/19 09:18 Sodium Chloride Flush Syringe 10 Ml IV 10 ml BID JAMIE Administration Sodium Chloride 10 ml 01/26/19 11:04 01/31/19 02:57 Sodium Chloride Flush Syringe 10 Ml IV 10 ml PRN PRN Administration LINE FLUSH Zolpidem Tartrate 5 mg 01/27/19 22:00 02/01/19 21:40 Ambien PO 5 mg QHS PRN Administration Sleep Nutrition/Malnutrition Assess - Dietary Evaluation Nutrition/Malnutrition Findings: Nutrition Notes Start: 01/27/19 15: 49 Freq: Status: Active Protocol: Document 01/28/19 16:26 RM (Rec: 01/28/19 16:30 RM [id number]) Nutrition Notes Initial or Follow up Brief Note Current Diagnosis Heart Failure Other Pertinent Diagnosis PVD, Chronic pancreatitis, Medical noncompliance, R foot amputation Current Diet Renal, Cardiac Labs/Tests Reviewed Pertinent Medications Lasix Height 5 ft 10 in Weight 92.5 kg Usual Body Weight 81.82 kg [place] Body Weight (kg) 75.45 BMI 29.2 Subjective/Other Information 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 Stated that he eats all of his meals here and requested more food. Noted lunch at bedside w/100% eaten. Mechanical Striper agreed to provide double portion of protein. Pt stated that his UBW was 180 lbs 1 month ago. No temporal or orbital wasting . Pt declined DM diet education. Burn Absent Trauma Absent Nutrition Intervention Change Diet Order: Renal,Cardiac w/double protein Revisit per MD consult or patient Sign Off request:
[2019-02-02] MEDS: AMBIEN PO PRN (22:23)
[2019-02-03] MEDS: ALBURX 25% (ALBUMIN) IV SCH ×2 (06:08→19:02)
[2019-02-03] MEDS: BUMEX IV SCH ×2 (06:43→19:02)
[2019-02-03] MEDS: SODIUM CHLORIDE FLUSH SYRINGE 10 ML IV PRN (06:44)
[2019-02-03 08:03] LABS: Hematocrit 25.4 % (35.5-45.6); Hemoglobin 8.2 gm/dl (11.8-15.2); Mean Corpuscular HGB Conc 32 % (32-34); Mean Corpuscular Volume 83 fl (84-94); Platelet Count 139 K/mm3 (140-440); Red Blood Count 3.05 M/mm3 (3.65-5.03); Red Cell Distribution Width 15.9 % (13.2-15.2)
[2019-02-03 08:07] LABS: Calcium 8.8 mg/dL (8.4-10.2)
[2019-02-03] MEDS: CREON DR 12,000 UNITS PO SCH ×3 (09:25→19:02)
[2019-02-03] MEDS: IMDUR PO SCH (09:26)
[2019-02-03] MEDS: BABY ASPIRIN PO SCH (09:26)
[2019-02-03] MEDS: SODIUM BICARBONATE PO SCH ×2 (09:26→22:01)
[2019-02-03] MEDS: APRESOLINE PO SCH ×3 (09:27→22:00)
[2019-02-03] MEDS: NORVASC PO SCH (09:27)
[2019-02-03] MEDS: HumaLOG SUB-Q SCH ×4 (09:29→22:01)
[2019-02-03] MEDS: SODIUM CHLORIDE FLUSH SYRINGE 10 ML IV SCH ×2 (09:30→22:01)
[2019-02-03] MEDS: COREG PO SCH ×2 (09:30→22:00)
--- NOTE | 2019-02-03 10:24 | Progress Note ---
Assessment and Plan Impression * Acute renal failure * Congestive heart failure * Anasarca * Uncontrolled hypertension * Diabetes Recommendations * Etiology of his acute kidney injury unclear. His baseline creatinine is approximately 1.2-1.4 * Complement levels C3 and C4 both are normal. Follow up results of other vasculitis workup * Patient is clinically volume overloaded * Continue IV Bumex with albumin * Awaiting results of renal ultrasound * Monitor fluid status and electrolytes closely * If patient has inadequate response to diuretics, may need to consider renal replacement therapy Subjective Date of service: 02/03/19 Principal diagnosis: HF Interval history: resting in bed today Objective - Exam Narrative Exam: General appearance: well-developed, well-nourished, appears stated age EENT: PERRL, mucous membranes moist Neck: no JVD, no thyromegaly, no carotid bruit, supple Respiratory: Present: Rales (bibasilar crackles) Cardiology: regular, normal heart rate, S1S2, no murmurs Gastrointestinal: normal, normoactive bowel sounds Integumentary: no rash, other (1+ edema) - Vital Signs Vital signs: Vital Signs - 12hr 02/02/19 02/03/19 02/03/19 23:29 02:20 06:00 Temperature 98.5 F 98.1 F Pulse Rate 79 70 Pulse Rate [ 75 Anterior Bilateral] Respiratory 20 20 Rate Respiratory 18 Rate [Anterior Bilateral] Blood Pressure 153/89 Blood Pressure 145/91 [Left] O2 Sat by Pulse 97 100 97 Oximetry 02/03/19 02/03/19 08:32 09:26 Temperature Pulse Rate 70 Pulse Rate [ Anterior Bilateral] Respiratory Rate Respiratory Rate [Anterior Bilateral] Blood Pressure 145/91 Blood Pressure [Left] O2 Sat by Pulse 100 Oximetry - Lab 02/03/19 07:23 02/03/19 07:23 Most recent lab results Calcium 8.8 mg/dL (8.4-10.2) 02/03/19 07:23 Phosphorus 4.10 mg/dL (2.5-4.5) 01/28/19 04:56 Magnesium 1.70 mg/dL (1.7-2.3) 01/28/19 04:56 51.1 mg/dL (0.1-20.0) H 01/28/19 15:55 82 mg/dL (5-11.8) H 01/28/19 15:55 Medications & Allergies - Medications Allergies/Adverse Reactions: Allergies No Known Allergies Allergy (Unverified 10/21/18 19:15) Home Medications: Home Medications Medication Instructions Recorded Confirmed Last Taken Type Acetaminophen [Acetaminophen TAB] 650 mg PO Q4H PRN #15 tablet 10/24/18 01/26/19 01/25/19 Rx Insulin NPH/Regular [NovoLIN 70/30] 20 unit SUB-Q BID #100 units 10/24/18 01/26/19 01/25/19 Rx Insulin Regular, Human [HumuLIN R] 1 dose SUB-Q ACHS PRN #100 units 10/24/18 01/26/19 01/25/19 Rx Lisinopril [Zestril TAB] 10 mg PO DAILY 01/26/19 01/26/19 01/25/19 History 10 mg amLODIPine [Norvasc] 10 mg PO DAILY 01/26/19 01/26/19 01/25/19 History 10 mg Active Medications: Generic Name Dose Route Start Last Admin Trade Name Amy PRN Reason Stop Dose Admin Acetaminophen 650 mg 01/26/19 11:08 Tylenol PO Q4H PRN Non Cardiac Pain or Temp>100.5 Albumin Human 25 gm 01/31/19 18:00 02/03/19 06:08 Alburx 25% (Albumin) IV 25 gm Q12H JAMIE Administration Albuterol 2.5 mg 01/31/19 22:33 02/01/19 22:37 Proventil IH 2.5 mg Q4HRT PRN Administration Shortness Of Breath Amlodipine Besylate 10 mg 01/26/19 14:00 02/03/19 09:27 Norvasc PO 10 mg DAILY JAMIE Administration Lipase/Protease/Amylase 6 each 01/26/19 16:30 02/03/19 09:[address] 12,000 Units PO 6 each AC JAMIE Administration Aspirin 81 mg 01/27/19 10:00 02/03/19 09:26 Baby Aspirin PO 81 mg QDAY JAMIE Administration Bumetanide 2 mg 01/31/19 18:00 02/03/19 06:43 Bumex IV 2 mg BID@0600,1800 JAMIE Administration Carvedilol 6.25 mg 01/26/19 15:00 02/03/19 09:30 Coreg PO 6.25 mg BID JAMIE Administration Dextrose 50 ml 01/26/19 11:09 01/26/19 13:03 D50w (25gm) Syringe IV 50 ml PRN PRN Administration Hypoglycemia Guaifenesin 10 ml 01/27/19 14:32 Guaifenesin Dm Syrup PO Q4H PRN Cough Hydralazine HCl 10 mg 01/26/19 15:24 Apresoline IV Q4HR PRN Hypertension Hydralazine HCl 50 mg 02/02/19 12:00 02/03/19 09:27 Apresoline PO 50 mg BID JAMIE Administration Insulin Human Isoph/Insulin Regular 20 unit 01/26/19 22:00 02/03/19 09:29 Humulin 70/30 SUB-Q 20 unit BID JAMIE Administration Insulin Human Lispro 0 unit 01/26/19 11:30 02/03/19 09:29 Humalog SUB-Q Not Given ACHS [facility] Protocol Isosorbide Mononitrate 30 mg 02/03/19 10:00 02/03/19 09:26 Imdur PO 30 mg QDAY JAMIE Administration Lorazepam 2 mg 01/26/19 11:04 Ativan IV Q1H PRN CIWA-Ar 8-15 Nitroglycerin 0.4 mg 01/26/19 11:04 Nitrostat SL .Q5MIN PRN Chest Pain Ondansetron HCl 4 mg 01/26/19 11:04 Zofran IV Q8H PRN Nausea And Vomiting Sodium Bicarbonate 1,300 mg 01/30/19 11:00 02/03/19 09:26 Sodium Bicarbonate PO 1,300 mg BID JAMIE Administration Sodium Chloride 10 ml 01/26/19 22:00 02/03/19 09:30 Sodium Chloride Flush Syringe 10 Ml IV 10 ml BID JAMIE Administration Sodium Chloride 10 ml 01/26/19 11:04 02/03/19 06:44 Sodium Chloride Flush Syringe 10 Ml IV 10 ml PRN PRN Administration LINE FLUSH Zolpidem Tartrate 5 mg 01/27/19 22:00 02/02/19 22:23 Ambien PO 5 mg QHS PRN Administration Sleep
--- NOTE | 2019-02-03 10:46 | Progress Note ---
Assessment and Plan Serum Cr trending upwards, cont diuresis per nephrology and monitor renal indices. Per nephrology, if patient has inadequate response to diuretics, may need to consider renal replacement therapy No ACEI/ARB at this time in setting of renal insufficiency. The patient has been seen in conjunction with Dr. Bailon who agrees with the assessment and plan of care. - Patient Problems (1) Acute HFrEF (heart failure with reduced ejection fraction) Current Visit: Yes Status: Acute (2) Cardiomyopathy Current Visit: Yes Status: Chronic (3) NSTEMI (non-ST elevated myocardial infarction) Current Visit: Yes Status: Acute Plan to address problem: type II (4) Uncontrolled hypertension Current Visit: Yes Status: Chronic (5) Diabetes Current Visit: Yes Status: Chronic Qualifiers: Diabetes mellitus type: type 1 Diabetes mellitus complication status: with circulatory complication Diabetes mellitus complication detail: with other circulatory complications Qualified Code(s): E10.59 - Type 1 diabetes mellitus with other circulatory complications (6) History of chronic pancreatitis Current Visit: Yes Status: Chronic (7) History of ETOH abuse Current Visit: Yes Status: Chronic (8) PVD (peripheral vascular disease) Current Visit: Yes Status: Chronic (9) Anemia Current Visit: Yes Status: Acute (10) ANYA (acute kidney injury) Current Visit: Yes Status: Acute Subjective Date of service: 02/03/19 Principal diagnosis: HF Interval history: pt resting in bed, still with SOB, BLE persists. Objective Last Vital Signs Temp 98.1 F 02/03/19 06:00 Pulse 70 02/03/19 09:26 Resp 20 02/03/19 06:00 BP 145/91 02/03/19 09:26 Pulse Ox 100 02/03/19 08:32 - Physical Examination General: No Apparent Distress HEENT: Positive: PERRL, Normocephaly, Mucus Membranes Moist Neck: Positive: neck supple, JVD/HJR Cardiac: Positive: Reg Rate and Rhythm, S1/S2 Lungs: Positive: Decreased Breath Sounds Neuro: Positive: Grossly Intact Abdomen: Negative: Tender Skin: Negative: Rash Musculoskeletal: other (partial left foot amputation ) Extremities: Present: +2 Edema - Labs and Meds CBC 02/03/19 Range/Units 07:23 WBC 4.6 (4.5-11.0) K/mm3 RBC 3.05 L (3.65-5.03) M/mm3 Hgb 8.2 L (11.8-15.2) gm/dl Hct 25.4 L (35.5-45.6) % Plt Count 139 L (140-440) K/mm3 Lymph # Real Estate Consultant [place] # Real Estate Consultant Eos # Real Estate Consultant Baso # Real Estate Consultant Comprehensive Metabolic Panel 02/03/19 Range/Units 07:23 Sodium 138 (137-145) mmol/L Potassium 4.5 (3.6-5.0) mmol/L Chloride 103.0 (98-107) mmol/L Carbon Dioxide 21 L (22-30) mmol/L BUN 50 H (9-20) mg/dL Creatinine 2.6 H (0.8-1.5) mg/dL Glucose 95 (75-100) mg/dL Calcium 8.8 (8.4-10.2) mg/dL - Imaging and Cardiology EKG: report reviewed, image reviewed Echo: report reviewed (EF 45-50%, mild LVH, restrictive diastolic filling, LA mildly dilated, RV mod dilated, RV systolic function mildly reduced, RA mildly dilated, trace MR, mild TR, RVSP 56mmHg, small pericardial effusion that does not appear to be hemodynamically significant. ) - EKG Sinus rhythms and dysrhythmias: sinus rhythm
[2019-02-03] MEDS: ZAROXOLYN PO SCH (13:54)
--- NOTE | 2019-02-03 15:14 | Progress Note ---
Assessment and Plan /Acute mild systolic congestive heart failure , EF 45-50% On IV Bumex, metolazone and beta blockers cont Input output monitoring, low sodium diet fluid restriction Cardiology is following the patient, /Acute kidney injury secondary to ATN, Baseline Cr 1.2 mild improvement of his renal function avoid nephrotoxins, nephrology following /-Generalized anasarca and fluid overload, likely from cardiorenal syndrom Continue diuretics input output monitoring Nephrology following /Hypertensive urgency; present on admission Moderately controlled, continue carvedilol, hydralazine and amlodipine closely monitor /Non-ST elevated [place] type II; stress test no ischemia Mild systolic dysfunction EF 45-50% Continue current cardiac medications /Hypokalemia; Hypomagnesemia; corrected /-Diabetes mellitus; Well-controlled, Accu-Chek sliding scale coverage and ADA diet and insulin Avoid hypoglycemic episodes, diabetic diet, diabetic education /Peripheral vascular disease; Partial right foot amputation cont aspirin and statin /Severe malnutrition/hypoalbuminemia; nutrition consult /-Prior history of EtOH dependence; patient advised to quit alcohol intake /Chronic pancreatitis; stable /Anemia of chronic disease; mild drop in H&H transfuse as needed Iron supplements /-Medical noncompliance; strongly advised to comply with medications diet and follow-up visits, Patient verbalized understanding Disposition; follow nephrology recommendations, discharge when clears by cardiology Brief History The pt is a 53-year-old gentleman with a past medical history of DM, PVD s/p partial left foot amputation, chronic pancreatitis, prior ETOH abuse (states he quit drinking several years ago) does not have a PCP currently presented with complaints of BLE swelling, SOB and orthopnea for several days prior to arrival. He is now being managed for CHF exacerbation and ANYA Hospitalist Physical General appearance: Present: no acute distress, well-nourished - EENT Eyes: Present: PERRL, EOM intact - Neck Neck: Present: supple, normal ROM - Respiratory Respiratory effort: normal Respiratory: bilateral: diminished, rales, negative: rhonchi, wheezing - Cardiovascular Rhythm: regular Heart Sounds: Present: S1 & S2 - Extremities Extremities: no ischemia Extremity abnormal: 3+ edema - Abdominal General gastrointestinal: soft, non-tender, non-distended, normal bowel sounds - Integumentary Integumentary: Present: clear, warm - Psychiatric Psychiatric: appropriate mood/affect, cooperative - Neurologic Neurologic: CNII-XII intact, moves all extremities Subjective Date of service: 02/03/19 Principal diagnosis: HF Interval history: Patient seen and examined. Medical records and medication list reviewed. No acute event overnight noted by the RN. Patient denies any chest pain but has difficulty breathing on exertion. Patient is tolerating diet. States he is having more urine output now Discussed plan of care at bedside with patient. Objective - Constitutional Vitals: Vital Signs - 12hr 02/03/19 02/03/19 02/03/19 06:00 08:32 09:26 Temperature 98.1 F Pulse Rate 70 70 Respiratory 20 Rate Blood Pressure 145/91 Blood Pressure 145/91 [Left] O2 Sat by Pulse 97 100 Oximetry 02/03/19 02/03/19 11:50 11:51 Temperature 97.9 F Pulse Rate 77 Respiratory 20 Rate Blood Pressure 128/81 Blood Pressure [Left] O2 Sat by Pulse 97 Oximetry - Labs CBC & Chem 7: 02/03/19 07:23 02/04/19 05:46 Labs: Abnormal lab results 02/02/19 02/02/19 02/03/19 Range/Units 17:38 21:59 04:24 RBC (3.65-5.03) M/mm3 Hgb (11.8-15.2) gm/dl Hct (35.5-45.6) % MCV (84-94) fl MCH (28-32) pg RDW (13.2-15.2) % Plt Count (140-440) K/mm3 Carbon Dioxide (22-30) mmol/L BUN (9-20) mg/dL Creatinine (0.8-1.5) mg/dL POC Glucose 127 H 161 H 62 L (70-105) 02/03/19 02/03/19 02/03/19 Range/Units 05:22 07:23 07:23 RBC 3.05 L (3.65-5.03) M/mm3 Hgb 8.2 L (11.8-15.2) gm/dl Hct 25.4 L (35.5-45.6) % MCV 83 L (84-94) fl MCH 27 L (28-32) pg RDW 15.9 H (13.2-15.2) % Plt Count 139 L (140-440) K/mm3 Carbon Dioxide 21 L (22-30) mmol/L BUN 50 H (9-20) mg/dL Creatinine 2.6 H (0.8-1.5) mg/dL POC Glucose 144 H (70-105) 02/03/19 Range/Units 07:46 RBC (3.65-5.03) M/mm3 Hgb (11.8-15.2) gm/dl Hct (35.5-45.6) % MCV (84-94) fl MCH (28-32) pg RDW (13.2-15.2) % Plt Count (140-440) K/mm3 Carbon Dioxide (22-30) mmol/L BUN (9-20) mg/dL Creatinine (0.8-1.5) mg/dL POC Glucose 109 H (70-105)
[2019-02-03] MEDS: AMBIEN PO PRN (23:40)
[2019-02-04 06:38] LABS: Calcium 8.6 mg/dL (8.4-10.2)
[2019-02-04] MEDS: BUMEX IV SCH ×2 (06:47→17:50)
[2019-02-04] MEDS: ALBURX 25% (ALBUMIN) IV SCH ×2 (06:52→17:50)
[2019-02-04] MEDS: CREON DR 12,000 UNITS PO SCH ×3 (08:35→17:49)
--- NOTE | 2019-02-04 10:09 | Progress Note ---
Assessment and Plan Impression * Acute renal failure * Congestive heart failure * Anasarca * Uncontrolled hypertension * Diabetes Recommendations * Etiology of his acute kidney injury unclear. His baseline creatinine is approximately 1.2-1.4 * cr is 2.6 and stable today * Complement levels C3 and C4 both are normal. Follow up results of other vasculitis workup * Patient is clinically volume overloaded * Continue IV Bumex with albumin/zaroxolyn * negative fluid balance * Monitor fluid status and electrolytes closely * If patient has inadequate response to diuretics, may need to consider renal replacement therapy Subjective Date of service: 02/04/19 Principal diagnosis: HF Interval history: resting in bed today Objective - Exam Narrative Exam: General appearance: well-developed, well-nourished, appears stated age EENT: PERRL, mucous membranes moist Neck: no JVD, no thyromegaly, no carotid bruit, supple Respiratory: Present: Rales (bibasilar crackles) Cardiology: regular, normal heart rate, S1S2, no murmurs Gastrointestinal: normal, normoactive bowel sounds Integumentary: no rash, other (1+ edema) - Vital Signs Vital signs: Vital Signs - 12hr 02/03/19 02/04/19 23:37 06:49 Temperature 97.5 F L 97.4 F L Pulse Rate 78 74 Respiratory 20 20 Rate Blood Pressure 112/64 135/83 O2 Sat by Pulse 99 100 Oximetry - Lab 02/03/19 07:23 02/04/19 05:46 Most recent lab results Calcium 8.6 mg/dL (8.4-10.2) 02/04/19 05:46 Phosphorus 4.10 mg/dL (2.5-4.5) 01/28/19 04:56 Magnesium 1.70 mg/dL (1.7-2.3) 01/28/19 04:56 51.1 mg/dL (0.1-20.0) H 01/28/19 15:55 82 mg/dL (5-11.8) H 01/28/19 15:55 Medications & Allergies - Medications Allergies/Adverse Reactions: Allergies No Known Allergies Allergy (Unverified 10/21/18 19:15) Home Medications: Home Medications Medication Instructions Recorded Confirmed Last Taken Type Acetaminophen [Acetaminophen TAB] 650 mg PO Q4H PRN #15 tablet 10/24/18 01/26/1901/25/19 Rx Insulin NPH/Regular [NovoLIN 70/30] 20 unit SUB-Q BID #100 units 10/24/18 01/26/19 01/25/19 Rx Insulin Regular, Human [HumuLIN R] 1 dose SUB-Q ACHS PRN #100 units 10/24/18 01/26/19 01/25/19 Rx Lisinopril [Zestril TAB] 10 mg PO DAILY 01/26/19 01/26/19 01/25/19 History 10 mg amLODIPine [Norvasc] 10 mg PO DAILY 01/26/19 01/26/19 01/25/19 History 10 mg Active Medications: Generic Name Dose Route Start Last Admin Trade Name Freq PRN Reason Stop Dose Admin Acetaminophen 650 mg 01/26/19 11:08 Tylenol PO Q4H PRN Non Cardiac Pain or Temp>100.5 Albumin Human 25 gm 01/31/19 18:00 02/04/19 06:52 Alburx 25% (Albumin) IV 25 gm Q12H JAMIE Administration Albuterol 2.5 mg 01/31/19 22:33 02/01/19 22:37 Proventil IH 2.5 mg Q4HRT PRN Administration Shortness Of Breath Lipase/Protease/Amylase 6 each 01/26/19 16:30 02/03/19 19:02 Alex Espinoza 12,000 Units PO 6 each AC JAMIE Administration Aspirin 81 mg 01/27/19 10:00 02/03/19 09:26 Baby Aspirin PO 81 mg QDAY JAMIE Administration Bumetanide 2 mg 01/31/19 18:00 02/04/19 06:47 Bumex IV 2 mg BID@0600,1800 JAMIE Administration Carvedilol 6.25 mg 01/26/19 15:00 02/03/19 22:00 Coreg PO 6.25 mg BID JAMIE Administration Dextrose 50 ml 01/26/19 11:09 01/26/19 13:03 D50w (25gm) Syringe IV 50 ml PRN PRN Administration Hypoglycemia Guaifenesin 10 ml 01/27/19 14:32 Guaifenesin Dm Syrup PO Q4H PRN Cough Hydralazine HCl 10 mg 01/26/19 15:24 Apresoline IV Q4HR PRN Hypertension Hydralazine HCl 100 mg 02/03/19 14:00 02/03/19 22:00 Apresoline PO 100 mg TID JAMIE Administration Insulin Human Isoph/Insulin Regular 20 unit 01/26/19 22:00 02/03/19 22:01 Humulin 70/30 SUB-Q 20 unit BID JAMIE Administration Insulin Human Lispro 0 unit 01/26/19 11:30 02/03/19 22:01 Humalog SUB-Q 4 unit ACHS JAMIE Administration Protocol Isosorbide Mononitrate 30 mg 02/03/19 10:00 02/03/19 09:26 Imdur PO 30 mg QDAY JAMIE Administration Lorazepam 2 mg 01/26/19 11:04 Ativan IV Q1H PRN CIWA-Ar 8-15 Metolazone 5 mg 02/03/19 12:00 02/03/19 13:54 Zaroxolyn PO 5 mg QDAY JAMIE Administration Nitroglycerin 0.4 mg 01/26/19 11:04 Nitrostat SL .Q5MIN PRN Chest Pain Ondansetron HCl 4 mg 01/26/19 11:04 Zofran IV Q8H PRN Nausea And Vomiting Sodium Bicarbonate 1,300 mg 01/30/19 11:00 02/03/19 22:01 Sodium Bicarbonate PO 1,300 mg BID JAMIE Administration Sodium Chloride 10 ml 01/26/19 22:00 02/03/19 22:01 Sodium Chloride Flush Syringe 10 Ml IV 10 ml BID JAMIE Administration Sodium Chloride 10 ml 01/26/19 11:04 02/03/19 06:44 Sodium Chloride Flush Syringe 10 Ml IV 10 ml PRN PRN Administration LINE FLUSH Zolpidem Tartrate 5 mg 01/27/19 22:00 02/03/19 23:40 Ambien PO 5 mg QHS PRN Administration Sleep
--- NOTE | 2019-02-04 10:14 | Progress Note ---
Assessment and Plan Cont diuresis per nephrology and monitor renal indices. No ACEI/ARB at this time in setting of renal insufficiency. The patient has been seen in conjunction with Dr. Bailon who agrees with the assessment and plan of care. - Patient Problems (1) Acute HFrEF (heart failure with reduced ejection fraction) Current Visit: Yes Status: Acute (2) Cardiomyopathy Current Visit: Yes Status: Chronic (3) NSTEMI (non-ST elevated myocardial infarction) Current Visit: Yes Status: Acute (4) Uncontrolled hypertension Current Visit: Yes Status: Chronic (5) Diabetes Current Visit: Yes Status: Chronic Qualifiers: Diabetes mellitus type: type 1 Diabetes mellitus complication status: with circulatory complication Diabetes mellitus complication detail: with other circulatory complications Qualified Code(s): E10.59 - Type 1 diabetes mellitus with other circulatory complications (6) History of chronic pancreatitis Current Visit: Yes Status: Chronic (7) History of ETOH abuse Current Visit: Yes Status: Chronic (8) PVD (peripheral vascular disease) Current Visit: Yes Status: Chronic (9) Anemia Current Visit: Yes Status: Acute (10) ANYA (acute kidney injury) Current Visit: Yes Status: Acute Subjective Date of service: 02/04/19 Principal diagnosis: HF Interval history: pt resting up in chair, states SOB and BLE swelling are improving. Objective Last Vital Signs Temp 97.4 F L 02/04/19 06:49 Pulse 74 02/04/19 06:49 Resp 20 02/04/19 06:49 BP 135/83 02/04/19 06:49 Pulse Ox 100 02/04/19 06:49 - Physical Examination General: No Apparent Distress HEENT: Positive: PERRL, Normocephaly, Mucus Membranes Moist Neck: Positive: neck supple, JVD/HJR Cardiac: Positive: Reg Rate and Rhythm, S1/S2 Lungs: Positive: Decreased Breath Sounds Neuro: Positive: Grossly Intact Abdomen: Negative: Tender Skin: Negative: Rash Musculoskeletal: other (partial left foot amputation ) Extremities: Present: +2 Edema - Labs and Meds Comprehensive Metabolic Panel 02/04/19 Range/Units 05:46 Sodium 142 (137-145) mmol/L Potassium 4.7 (3.6-5.0) mmol/L Chloride 105.3 (98-107) mmol/L Carbon Dioxide 24 (22-30) mmol/L BUN 61 H (9-20) mg/dL Creatinine 2.6 H (0.8-1.5) mg/dL Glucose 99 (75-100) mg/dL Calcium 8.6 (8.4-10.2) mg/dL - Imaging and Cardiology EKG: report reviewed, image reviewed Echo: report reviewed (EF 45-50%, mild LVH, restrictive diastolic filling, LA mildly dilated, RV mod dilated, RV systolic function mildly reduced, RA mildly dilated, trace MR, mild TR, RVSP 56mmHg, small pericardial effusion that does not appear to be hemodynamically significant. ) - EKG Sinus rhythms and dysrhythmias: sinus rhythm
[2019-02-04] MEDS: ZAROXOLYN PO SCH (11:50)
[2019-02-04] MEDS: SODIUM BICARBONATE PO SCH ×2 (11:50→21:57)
[2019-02-04] MEDS: COREG PO SCH ×2 (11:50→21:57)
[2019-02-04] MEDS: IMDUR PO SCH (11:50)
[2019-02-04] MEDS: SODIUM CHLORIDE FLUSH SYRINGE 10 ML IV SCH ×2 (11:51→23:14)
[2019-02-04] MEDS: BABY ASPIRIN PO SCH (11:51)
[2019-02-04] MEDS: APRESOLINE PO SCH ×3 (11:57→21:57)
[2019-02-04] MEDS: HumaLOG SUB-Q SCH ×4 (11:58→21:59)
[2019-02-04 11:59] LABS: ANA Screen, IFA Negative (Negative)
--- NOTE | 2019-02-04 15:14 | Ultrasound Report ---
ULTRASOUND RENAL BILATERAL HISTORY: Chronic kidney disease. TECHNIQUE: transabdominal ultrasound with color Doppler interrogation. COMPARISON: 10/22/18. FINDINGS: The right kidney measures 11.2cm. Right renal cortex: 1.9cm. The left kidney measures 10.8cm. Left renal cortex: 2.7cm. The kidneys are normal size, contour and position. There is increased renal cortical echotexture bilaterally consistent with nonspecific renal parenchymal disease. Corticomedullary differentiation is preserved. No evidence for cystic disease, mass, nephrolithiasis, hydronephrosis or perinephric fluid. The views of the bladder and the region of the ureters appear normal. IMPRESSION: Echogenic kidneys consistent with nonspecific renal parenchymal disease.
--- NOTE | 2019-02-04 15:19 | Progress Note ---
Assessment and Plan /Acute mild systolic congestive heart failure , EF 45-50% On IV Bumex, metolazone and beta blockers cont Input output monitoring, low sodium diet fluid restriction Cardiology is following the patient, /Acute kidney injury secondary to ATN, Baseline Cr 1.2 mild improvement of his renal function avoid nephrotoxins, nephrology following /-Generalized anasarca and fluid overload, likely from cardiorenal syndrom Continue diuretics input output monitoring Nephrology following /Hypertensive urgency; present on admission Moderately controlled, continue carvedilol, hydralazine and amlodipine closely monitor /Non-ST elevated [place] type II; stress test no ischemia Mild systolic dysfunction EF 45-50% Continue current cardiac medications /Hypokalemia; Hypomagnesemia; corrected /-Diabetes mellitus; Well-controlled, Accu-Chek sliding scale coverage and ADA diet and insulin Avoid hypoglycemic episodes, diabetic diet, diabetic education /Peripheral vascular disease; Partial right foot amputation cont aspirin and statin /Severe malnutrition/hypoalbuminemia; nutrition consult /-Prior history of EtOH dependence; patient advised to quit alcohol intake /Chronic pancreatitis; stable /Anemia of chronic disease; mild drop in H&H transfuse as needed Iron supplements /-Medical noncompliance; strongly advised to comply with medications diet and follow-up visits, Patient verbalized understanding Disposition; follow nephrology recommendations, discharge when clears by cardiology Brief History The pt is a 53-year-old gentleman with a past medical history of DM, PVD s/p partial left foot amputation, chronic pancreatitis, prior ETOH abuse (states he quit drinking several years ago) does not have a PCP currently presented with complaints of BLE swelling, SOB and orthopnea for several days prior to arrival. He is now being managed for CHF exacerbation and ANYA Hospitalist Physical General appearance: Present: no acute distress, well-nourished - EENT Eyes: Present: PERRL, EOM intact - Neck Neck: Present: supple, normal ROM - Respiratory Respiratory effort: normal Respiratory: bilateral: diminished, rales, negative: rhonchi, wheezing - Cardiovascular Rhythm: regular Heart Sounds: Present: S1 & S2 - Extremities Extremities: no ischemia Extremity abnormal: 3+ edema - Abdominal General gastrointestinal: soft, non-tender, non-distended, normal bowel sounds - Integumentary Integumentary: Present: clear, warm - Psychiatric Psychiatric: appropriate mood/affect, cooperative - Neurologic Neurologic: CNII-XII intact, moves all extremities Subjective Date of service: 02/04/19 Principal diagnosis: HF Interval history: Patient seen and examined. Medical records and medication list reviewed. No acute event overnight noted by the RN. Patient denies any chest pain but has difficulty breathing on exertion. Patient is tolerating diet. States he is having more urine output now but still has significant LE swelling Discussed plan of care at bedside with patient. Objective - Constitutional Vitals: Vital Signs - 12hr 02/04/19 06:49 Temperature 97.4 F L Pulse Rate 74 Respiratory 20 Rate Blood Pressure 135/83 O2 Sat by Pulse 100 Oximetry - Labs CBC & Chem 7: 02/03/19 07:23 02/05/19 04:29 Labs: Abnormal lab results 02/03/19 02/03/19 02/04/19 Range/Units 17:33 21:28 05:46 BUN 61 H (9-20) mg/dL Creatinine 2.6 H (0.8-1.5) mg/dL POC Glucose 266 H 330 H (70-105) 02/04/19 Range/Units 07:55 BUN (9-20) mg/dL Creatinine (0.8-1.5) mg/dL POC Glucose 59 L (70-105)
[2019-02-04] MEDS: AMBIEN PO PRN (21:57)
[2019-02-05 05:22] LABS: Calcium 8.7 mg/dL (8.4-10.2)
[2019-02-05] MEDS: BUMEX IV SCH ×2 (05:52→20:16)
[2019-02-05] MEDS: ALBURX 25% (ALBUMIN) IV SCH ×2 (05:55→17:50)
[2019-02-05] MEDS: APRESOLINE PO SCH ×3 (08:27→21:17)
[2019-02-05] MEDS: CREON DR 12,000 UNITS PO SCH ×3 (08:28→17:35)
[2019-02-05] MEDS: HumaLOG SUB-Q SCH ×5 (09:00→21:18)
--- NOTE | 2019-02-05 10:23 | Progress Note ---
Assessment and Plan Impression * Acute renal failure * Congestive heart failure * Anasarca * Uncontrolled hypertension * Diabetes Recommendations * Etiology of his acute kidney injury unclear. His baseline creatinine is approximately 1.2-1.4 * cr is 2.6 and stable today * Complement levels C3 and C4 both are normal. Follow up results of other vasculitis workup * Patient is clinically volume overloaded * Continue IV Bumex with albumin/zaroxolyn * negative fluid balance * Monitor fluid status and electrolytes closely * If patient has inadequate response to diuretics, may need to consider renal replacement therapy, he is diuresis well as of now Subjective Date of service: 02/05/19 Principal diagnosis: HF Interval history: resting in bed today Objective - Exam Narrative Exam: General appearance: well-developed, well-nourished, appears stated age EENT: PERRL, mucous membranes moist Neck: no JVD, no thyromegaly, no carotid bruit, supple Respiratory: Present: Rales (bibasilar crackles) Cardiology: regular, normal heart rate, S1S2, no murmurs Gastrointestinal: normal, normoactive bowel sounds Integumentary: no rash, other (1+ edema) - Vital Signs Vital signs: Vital Signs - 12hr 02/04/19 02/05/19 02/05/19 23:06 05:12 08:26 Temperature 98.5 F 98.5 F Pulse Rate 86 80 Respiratory 19 22 Rate Blood Pressure 121/67 117/70 134/86 O2 Sat by Pulse 95 100 Oximetry - Lab 02/03/19 07:23 02/05/19 04:29 Most recent lab results Calcium 8.7 mg/dL (8.4-10.2) 02/05/19 04:29 Phosphorus 4.10 mg/dL (2.5-4.5) 01/28/19 04:56 Magnesium 1.70 mg/dL (1.7-2.3) 01/28/19 04:56 51.1 mg/dL (0.1-20.0) H 01/28/19 15:55 82 mg/dL (5-11.8) H 01/28/19 15:55 Medications & Allergies - Medications Allergies/Adverse Reactions: Allergies No Known Allergies Allergy (Unverified 10/21/18 19:15) Home Medications: Home Medications Medication Instructions Recorded Confirmed Last Taken Type Acetaminophen [Acetaminophen TAB] 650 mg PO Q4H PRN #15 tablet 10/24/18 01/26/19 01/25/19 Rx Insulin NPH/Regular [NovoLIN 70/30] 20 unit SUB-Q BID #100 units 10/24/18 01/26/19 01/25/19 Rx Insulin Regular, Human [HumuLIN R] 1 dose SUB-Q ACHS PRN #100 units 10/24/18 01/26/19 01/25/19 Rx Lisinopril [Zestril TAB] 10 mg PO DAILY 01/26/19 01/26/19 01/25/19 History 10 mg amLODIPine [Norvasc] 10 mg PO DAILY 01/26/19 01/26/19 01/25/19 History 10 mg Active Medications: Generic Name Dose Route Start Last Admin Trade Name Freq PRN Reason Stop Dose Admin Acetaminophen 650 mg 01/26/19 11:08 Tylenol PO Q4H PRN Non Cardiac Pain or Temp>100.5 Albumin Human 25 gm 01/31/19 18:00 02/05/19 05:55 Alburx 25% (Albumin) IV 25 gm Q12H JAMIE Administration Albuterol 2.5 mg 01/31/19 22:33 02/01/19 22:37 Proventil IH 2.5 mg Q4HRT PRN Administration Shortness Of Breath Lipase/Protease/Amylase 6 each 01/26/19 16:30 02/05/19 08:[address] 12,000 Units PO 6 each AC JAMIE Administration Aspirin 81 mg 01/27/19 10:00 02/04/19 11:51 Baby Aspirin PO 81 mg QDAY JAMIE Administration Bumetanide 2 mg 01/31/19 18:00 02/05/19 05:52 Bumex IV 2 mg BID@0600,1800 JAMIE Administration Carvedilol 6.25 mg 01/26/19 15:00 02/04/19 21:57 Coreg PO 6.25 mg BID JAMIE Administration Dextrose 50 ml 01/26/19 11:09 01/26/19 13:03 D50w (25gm) Syringe IV 50 ml PRN PRN Administration Hypoglycemia Guaifenesin 10 ml 01/27/19 14:32 Guaifenesin Dm Syrup PO Q4H PRN Cough Hydralazine HCl 10 mg 01/26/19 15:24 Apresoline IV Q4HR PRN Hypertension Hydralazine HCl 100 mg 02/03/19 14:00 02/05/19 08:27 Apresoline PO 100 mg TID JAMIE Administration Insulin Human Isoph/Insulin Regular 20 unit 01/26/19 22:00 02/04/19 21:57 Humulin 70/30 SUB-Q 20 unit BID JAMIE Administration Insulin Human Lispro 0 unit 01/26/19 11:30 02/04/19 21:59 Humalog SUB-Q 3 unit ACHS JAMIE Administration Protocol Isosorbide Mononitrate 30 mg 02/03/19 10:00 02/04/19 11:50 Imdur PO 30 mg QDAY JAMIE Administration Lorazepam 2 mg 01/26/19 11:04 Ativan IV Q1H PRN CIWA-Ar 8-15 Metolazone 5 mg 02/03/19 12:00 02/04/19 11:50 Zaroxolyn PO 5 mg QDAY JAMIE Administration Nitroglycerin 0.4 mg 01/26/19 11:04 Nitrostat SL .Q5MIN PRN Chest Pain Ondansetron HCl 4 mg 01/26/19 11:04 Zofran IV Q8H PRN Nausea And Vomiting Sodium Bicarbonate 1,300 mg 01/30/19 11:00 02/04/19 21:57 Sodium Bicarbonate PO 1,300 mg BID JAMIE Administration Sodium Chloride 10 ml 01/26/19 22:00 02/04/19 23:14 Sodium Chloride Flush Syringe 10 Ml IV 10 ml BID JAMIE Administration Sodium Chloride 10 ml 01/26/19 11:04 02/03/19 06:44 Sodium Chloride Flush Syringe 10 Ml IV 10 ml PRN PRN Administration LINE FLUSH Zolpidem Tartrate 5 mg 01/27/19 22:00 02/04/19 21:57 Ambien PO 5 mg QHS PRN Administration Sleep
--- NOTE | 2019-02-05 10:58 | Progress Note ---
Assessment and Plan Cont diuresis per nephrology and monitor renal indices. No ACEI/ARB at this time in setting of renal insufficiency. The patient has been seen in conjunction with Dr. Bailon who agrees with the assessment and plan of care. - Patient Problems (1) Acute HFrEF (heart failure with reduced ejection fraction) Current Visit: Yes Status: Acute (2) Cardiomyopathy Current Visit: Yes Status: Chronic (3) NSTEMI (non-ST elevated myocardial infarction) Current Visit: Yes Status: Acute (4) Uncontrolled hypertension Current Visit: Yes Status: Chronic (5) Diabetes Current Visit: Yes Status: Chronic Qualifiers: Diabetes mellitus type: type 1 Diabetes mellitus complication status: with circulatory complication Diabetes mellitus complication detail: with other circulatory complications Qualified Code(s): E10.59 - Type 1 diabetes mellitus with other circulatory complications (6) History of chronic pancreatitis Current Visit: Yes Status: Chronic (7) History of ETOH abuse Current Visit: Yes Status: Chronic (8) PVD (peripheral vascular disease) Current Visit: Yes Status: Chronic (9) Anemia Current Visit: Yes Status: Acute (10) ANYA (acute kidney injury) Current Visit: Yes Status: Acute Subjective Date of service: 02/05/19 Principal diagnosis: HF Interval history: pt resting in bed, SOB and BLE swelling continue to improve. Objective Last Vital Signs Temp 98.5 F 02/05/19 05:12 Pulse 80 02/05/19 05:12 Resp 22 02/05/19 05:12 BP 134/86 02/05/19 08:26 Pulse Ox 100 02/05/19 05:12 - Physical Examination General: No Apparent Distress HEENT: Positive: PERRL, Normocephaly, Mucus Membranes Moist Neck: Positive: neck supple, JVD/HJR Cardiac: Positive: Reg Rate and Rhythm, S1/S2 Lungs: Positive: Decreased Breath Sounds Neuro: Positive: Grossly Intact Abdomen: Negative: Tender Skin: Negative: Rash Musculoskeletal: other (partial left foot amputation ) Extremities: Present: +2 Edema - Labs and Meds Comprehensive Metabolic Panel 02/05/19 Range/Units 04:29 Sodium 145 (137-145) mmol/L Potassium 3.9 (3.6-5.0) mmol/L Chloride 106.7 (98-107) mmol/L Carbon Dioxide 24 (22-30) mmol/L BUN 68 H (9-20) mg/dL Creatinine 2.6 H (0.8-1.5) mg/dL Glucose 106 H (75-100) mg/dL Calcium 8.7 (8.4-10.2) mg/dL - Imaging and Cardiology EKG: report reviewed, image reviewed Echo: report reviewed (EF 45-50%, mild LVH, restrictive diastolic filling, LA mildly dilated, RV mod dilated, RV systolic function mildly reduced, RA mildly dilated, trace MR, mild TR, RVSP 56mmHg, small pericardial effusion that does not appear to be hemodynamically significant. ) - EKG Sinus rhythms and dysrhythmias: sinus rhythm
[2019-02-05] MEDS: IMDUR PO SCH (11:07)
[2019-02-05] MEDS: COREG PO SCH ×2 (11:07→21:16)
[2019-02-05] MEDS: SODIUM BICARBONATE PO SCH ×2 (11:08→21:16)
[2019-02-05] MEDS: BABY ASPIRIN PO SCH (11:09)
[2019-02-05] MEDS: ZAROXOLYN PO SCH (11:20)
[2019-02-05] MEDS: SODIUM CHLORIDE FLUSH SYRINGE 10 ML IV SCH ×2 (11:21→21:19)
--- NOTE | 2019-02-05 13:14 | Progress Note ---
Assessment and Plan /Acute mild systolic congestive heart failure , EF 45-50% On IV Bumex, metolazone and beta blockers cont Input output monitoring, low sodium diet fluid restriction Cardiology is following the patient, /Acute kidney injury secondary to ATN, Baseline Cr 1.2 mild improvement of his renal function avoid nephrotoxins, nephrology following having good urine output /-Generalized anasarca and fluid overload, likely from cardiorenal syndrom Continue diuretics input output monitoring Nephrology following /Hypertensive urgency; present on admission Moderately controlled, continue carvedilol, hydralazine and amlodipine closely monitor /Non-ST elevated [place] type II; stress test no ischemia Mild systolic dysfunction EF 45-50% Continue current cardiac medications /Hypokalemia; Hypomagnesemia; corrected /-Diabetes mellitus; Well-controlled, Accu-Chek sliding scale coverage and ADA diet and insulin Avoid hypoglycemic episodes, diabetic diet, diabetic education /Peripheral vascular disease; Partial right foot amputation cont aspirin and statin /Severe malnutrition/hypoalbuminemia; nutrition consult /-Prior history of EtOH dependence; patient advised to quit alcohol intake /Chronic pancreatitis; stable /Anemia of chronic disease; stable H&H, transfuse as needed Iron supplements /-Medical noncompliance; strongly advised to comply with medications diet and follow-up visits, Patient verbalized understanding Disposition; follow nephrology recommendations, discharge when clears by nephrology Brief History The pt is a 53-year-old gentleman with a past medical history of DM, PVD s/p partial left foot amputation, chronic pancreatitis, prior ETOH abuse (states he quit drinking several years ago) does not have a PCP currently presented with complaints of BLE swelling, SOB and orthopnea for several days prior to arrival. He is now being managed for CHF exacerbation and ANYA Hospitalist Physical General appearance: Present: no acute distress, well-nourished - EENT Eyes: Present: PERRL, EOM intact - Neck Neck: Present: supple, normal ROM - Respiratory Respiratory effort: normal Respiratory: bilateral: diminished, rales, negative: rhonchi, wheezing - Cardiovascular Rhythm: regular Heart Sounds: Present: S1 & S2 - Extremities Extremities: no ischemia Extremity abnormal: 3+ edema - Abdominal General gastrointestinal: soft, non-tender, non-distended, normal bowel sounds - Integumentary Integumentary: Present: clear, warm - Psychiatric Psychiatric: appropriate mood/affect, cooperative - Neurologic Neurologic: CNII-XII intact, moves all extremities Subjective Date of service: 02/05/19 Principal diagnosis: HF Interval history: Patient seen and examined. Medical records and medication list reviewed. No acute event overnight noted by the RN. Patient denies any chest pain and improved breathing. Patient is tolerating diet. States he is having more urine output now but still has significant LE swelling Discussed plan of care at bedside with patient. Objective - Constitutional Vitals: Vital Signs - 12hr 02/05/19 02/05/19 02/05/19 05:12 08:26 11:05 Temperature 98.5 F Pulse Rate 80 Respiratory 22 Rate Blood Pressure 117/70 134/86 123/72 O2 Sat by Pulse 100 Oximetry 02/05/19 11:07 Temperature Pulse Rate 79 Respiratory Rate Blood Pressure 123/72 O2 Sat by Pulse Oximetry - Labs CBC & Chem 7: 02/03/19 07:23 02/06/19 05:58 Labs: Abnormal lab results 02/04/19 02/04/19 02/04/19 Range/Units 13:06 15:50 21:44 BUN (9-20) mg/dL Creatinine (0.8-1.5) mg/dL Glucose (75-100) mg/dL POC Glucose 208 H 297 H 331 H (70-105) 02/05/19 02/05/19 02/05/19 Range/Units 04:29 10:50 11:22 BUN 68 H (9-20) mg/dL Creatinine 2.6 H (0.8-1.5) mg/dL Glucose 106 H (75-100) mg/dL POC Glucose 221 H 227 H (70-105)
--- NOTE | 2019-02-05 13:15 | Progress Note ---
Assessment and Plan /Acute mild systolic congestive heart failure , EF 45-50% On IV Bumex, metolazone and beta blockers cont Input output monitoring, low sodium diet fluid restriction Cardiology is following the patient, /Acute kidney injury secondary to ATN, Baseline Cr 1.2 mild improvement of his renal function avoid nephrotoxins, nephrology following /-Generalized anasarca and fluid overload, likely from cardiorenal syndrom Continue diuretics input output monitoring Nephrology following /Hypertensive urgency; present on admission Moderately controlled, continue carvedilol, hydralazine and amlodipine closely monitor /Non-ST elevated [place] type II; stress test no ischemia Mild systolic dysfunction EF 45-50% Continue current cardiac medications /Hypokalemia; Hypomagnesemia; corrected /-Diabetes mellitus; Well-controlled, Accu-Chek sliding scale coverage and ADA diet and insulin Avoid hypoglycemic episodes, diabetic diet, diabetic education /Peripheral vascular disease; Partial right foot amputation cont aspirin and statin /Severe malnutrition/hypoalbuminemia; nutrition consult /-Prior history of EtOH dependence; patient advised to quit alcohol intake /Chronic pancreatitis; stable /Anemia of chronic disease; mild drop in H&H transfuse as needed Iron supplements /-Medical noncompliance; strongly advised to comply with medications diet and follow-up visits, Patient verbalized understanding Disposition; follow nephrology recommendations, discharge when clears by cardiology Brief History The pt is a 53-year-old gentleman with a past medical history of DM, PVD s/p partial left foot amputation, chronic pancreatitis, prior ETOH abuse (states he quit drinking several years ago) does not have a PCP currently presented with complaints of BLE swelling, SOB and orthopnea for several days prior to arrival. He is now being managed for CHF exacerbation and ANYA Hospitalist Physical General appearance: Present: no acute distress, well-nourished - EENT Eyes: Present: PERRL, EOM intact - Neck Neck: Present: supple, normal ROM - Respiratory Respiratory effort: normal Respiratory: bilateral: diminished, rales, negative: rhonchi, wheezing - Cardiovascular Rhythm: regular Heart Sounds: Present: S1 & S2 - Extremities Extremities: no ischemia Extremity abnormal: 3+ edema - Abdominal General gastrointestinal: soft, non-tender, non-distended, normal bowel sounds - Integumentary Integumentary: Present: clear, warm - Psychiatric Psychiatric: appropriate mood/affect, cooperative - Neurologic Neurologic: CNII-XII intact, moves all extremities Subjective Date of service: 02/05/19 Principal diagnosis: HF Objective - Constitutional Vitals: Vital Signs - 12hr 02/05/19 02/05/19 02/05/19 05:12 08:26 11:05 Temperature 98.5 F Pulse Rate 80 Respiratory 22 Rate Blood Pressure 117/70 134/86 123/72 O2 Sat by Pulse 100 Oximetry 02/05/19 11:07 Temperature Pulse Rate 79 Respiratory Rate Blood Pressure 123/72 O2 Sat by Pulse Oximetry - Labs CBC & Chem 7: 02/03/19 07:23 02/05/19 04:29 Labs: Abnormal lab results 02/04/19 02/04/19 02/04/19 Range/Units 13:06 15:50 21:44 BUN (9-20) mg/dL Creatinine (0.8-1.5) mg/dL Glucose (75-100) mg/dL POC Glucose 208 H 297 H 331 H (70-105) 02/05/19 02/05/19 02/05/19 Range/Units 04:29 10:50 11:22 BUN 68 H (9-20) mg/dL Creatinine 2.6 H (0.8-1.5) mg/dL Glucose 106 H (75-100) mg/dL POC Glucose 221 H 227 H (70-105)
[2019-02-05] MEDS: AMBIEN PO PRN (22:10)
[2019-02-06] MEDS: ALBURX 25% (ALBUMIN) IV SCH ×2 (06:00→19:14)
[2019-02-06] MEDS: BUMEX IV SCH ×2 (06:03→23:20)
[2019-02-06 06:37] LABS: Calcium 8.8 mg/dL (8.4-10.2)
[2019-02-06] MEDS: HumaLOG SUB-Q SCH ×4 (08:13→23:22)
[2019-02-06] MEDS: APRESOLINE PO SCH ×3 (08:54→23:21)
[2019-02-06] MEDS: CREON DR 12,000 UNITS PO SCH ×3 (09:01→18:27)
--- NOTE | 2019-02-06 10:31 | Progress Note ---
Assessment and Plan Cont diuresis per nephrology and monitor renal indices. No ACEI/ARB at this time in setting of renal insufficiency. The patient has been seen in conjunction with Dr. Bailon who agrees with the assessment and plan of care. - Patient Problems (1) Acute HFrEF (heart failure with reduced ejection fraction) Current Visit: Yes Status: Acute (2) Cardiomyopathy Current Visit: Yes Status: Chronic (3) NSTEMI (non-ST elevated myocardial infarction) Current Visit: Yes Status: Acute (4) Uncontrolled hypertension Current Visit: Yes Status: Chronic (5) Diabetes Current Visit: Yes Status: Chronic Qualifiers: Diabetes mellitus type: type 1 Diabetes mellitus complication status: with circulatory complication Diabetes mellitus complication detail: with other circulatory complications Qualified Code(s): E10.59 - Type 1 diabetes mellitus with other circulatory complications (6) History of chronic pancreatitis Current Visit: Yes Status: Chronic (7) History of ETOH abuse Current Visit: Yes Status: Chronic (8) PVD (peripheral vascular disease) Current Visit: Yes Status: Chronic (9) Anemia Current Visit: Yes Status: Acute (10) ANYA (acute kidney injury) Current Visit: Yes Status: Acute Subjective Date of service: 02/06/19 Principal diagnosis: HF Interval history: pt resting in bed, SOB and BLE swelling remain present. Objective Last Vital Signs Temp 98.5 F 02/06/19 04:59 Pulse 74 02/06/19 04:59 Resp 20 02/06/19 04:59 BP 125/73 02/06/19 08:10 Pulse Ox 97 02/06/19 04:59 - Physical Examination General: No Apparent Distress HEENT: Positive: PERRL, Normocephaly, Mucus Membranes Moist Neck: Positive: neck supple, JVD/HJR Cardiac: Positive: Reg Rate and Rhythm, S1/S2 Lungs: Positive: Decreased Breath Sounds Neuro: Positive: Grossly Intact Abdomen: Negative: Tender Skin: Negative: Rash Musculoskeletal: other (partial left foot amputation ) Extremities: Present: +2 Edema - Labs and Meds Comprehensive Metabolic Panel 02/06/19 Range/Units 05:58 Sodium 144 (137-145) mmol/L Potassium 4.5 (3.6-5.0) mmol/L Chloride 104.1 (98-107) mmol/L Carbon Dioxide 22 (22-30) mmol/L BUN 79 H (9-20) mg/dL Creatinine 3.2 H (0.8-1.5) mg/dL Glucose 81 (75-100) mg/dL Calcium 8.8 (8.4-10.2) mg/dL - Imaging and Cardiology EKG: report reviewed, image reviewed Echo: report reviewed (EF 45-50%, mild LVH, restrictive diastolic filling, LA mildly dilated, RV mod dilated, RV systolic function mildly reduced, RA mildly dilated, trace MR, mild TR, RVSP 56mmHg, small pericardial effusion that does not appear to be hemodynamically significant. ) - EKG Sinus rhythms and dysrhythmias: sinus rhythm
--- NOTE | 2019-02-06 11:06 | Progress Note ---
Assessment and Plan Impression * Acute renal failure * Congestive heart failure * Anasarca * Uncontrolled hypertension * Diabetes Recommendations * Etiology of his acute kidney injury unclear. His baseline creatinine is approximately 1.2-1.4 * cr is worse today, stop zaroxolyn * follow up cr clearance * Complement levels C3 and C4 both are normal. Follow up results of other vasculitis workup * Patient is clinically volume overloaded * Continue IV Bumex with albumin/zaroxolyn * negative fluid balance * Monitor fluid status and electrolytes closely * If patient has inadequate response to diuretics, may need to consider renal replacement therapy, he is diuresis well as of now Subjective Date of service: 02/06/19 Principal diagnosis: HF Interval history: resting in bed today Objective - Exam Narrative Exam: General appearance: well-developed, well-nourished, appears stated age EENT: PERRL, mucous membranes moist Neck: no JVD, no thyromegaly, no carotid bruit, supple Respiratory: Present: Rales (bibasilar crackles) Cardiology: regular, normal heart rate, S1S2, no murmurs Gastrointestinal: normal, normoactive bowel sounds Integumentary: no rash, other (1+ edema) - Vital Signs Vital signs: Vital Signs - 12hr 02/06/19 02/06/19 04:59 08:10 Temperature 98.5 F Pulse Rate 74 Respiratory 20 Rate Blood Pressure 136/85 125/73 O2 Sat by Pulse 97 Oximetry - Lab 02/03/19 07:23 02/06/19 05:58 Most recent lab results Calcium 8.8 mg/dL (8.4-10.2) 02/06/19 05:58 Phosphorus 4.10 mg/dL (2.5-4.5) 01/28/19 04:56 Magnesium 1.70 mg/dL (1.7-2.3) 01/28/19 04:56 51.1 mg/dL (0.1-20.0) H 01/28/19 15:55 82 mg/dL (5-11.8) H 01/28/19 15:55 Medications & Allergies - Medications Allergies/Adverse Reactions: Allergies No Known Allergies Allergy (Unverified 10/21/18 19:15) Home Medications: Home Medications Medication Instructions Recorded Confirmed Last Taken Type Acetaminophen [Acetaminophen TAB] 650 mg PO Q4H PRN #15 tablet 10/24/18 01/26/19 01/25/19 Rx Insulin NPH/Regular [NovoLIN 70/30] 20 unit SUB-Q BID #100 units 10/24/18 01/26/19 01/25/19 Rx Insulin Regular, Human [HumuLIN R] 1 dose SUB-Q ACHS PRN #100 units 10/24/18 01/26/19 01/25/19 Rx Lisinopril [Zestril TAB] 10 mg PO DAILY 01/26/19 01/26/19 01/25/19 History 10 mg amLODIPine [Norvasc] 10 mg PO DAILY 01/26/19 01/26/19 01/25/19 History 10 mg Active Medications: Generic Name Dose Route Start Last Admin Trade Name Freq PRN Reason Stop Dose Admin Acetaminophen 650 mg 01/26/19 11:08 Tylenol PO Q4H PRN Non Cardiac Pain or Temp>100.5 Albumin Human 25 gm 01/31/19 18:00 02/06/19 06:00 Alburx 25% (Albumin) IV 25 gm Q12H JAMIE Administration Albuterol 2.5 mg 01/31/19 22:33 02/01/19 22:37 Proventil IH 2.5 mg Q4HRT PRN Administration Shortness Of Breath Lipase/Protease/Amylase 6 each 01/26/19 16:30 02/06/19 09:01 Alex Espinoza 12,000 Units PO 6 each AC JAMIE Administration Aspirin 81 mg 01/27/19 10:00 02/05/19 11:09 Baby Aspirin PO 81 mg QDAY JAMIE Administration Bumetanide 2 mg 01/31/19 18:00 02/06/19 06:03 Bumex IV 2 mg BID@0600,1800 JAMIE Administration Carvedilol 6.25 mg 01/26/19 15:00 02/05/19 21:16 Coreg PO 6.25 mg BID JAMIE Administration Dextrose 50 ml 01/26/19 11:09 01/26/19 13:03 D50w (25gm) Syringe IV 50 ml PRN PRN Administration Hypoglycemia Guaifenesin 10 ml 01/27/19 14:32 Guaifenesin Dm Syrup PO Q4H PRN Cough Hydralazine HCl 10 mg 01/26/19 15:24 Apresoline IV Q4HR PRN Hypertension Hydralazine HCl 100 mg 02/03/19 14:00 02/06/19 08:54 Apresoline PO 100 mg TID JAMIE Administration Insulin Human Isoph/Insulin Regular 25 unit 02/05/19 17:00 02/06/19 09:03 Humulin 70/30 SUB-Q 25 unit BIDDIAB JAMIE Administration Insulin Human Lispro 0 unit 01/26/19 11:30 02/06/19 08:13 Humalog SUB-Q Not Given [facility] Protocol Isosorbide Mononitrate 30 mg 02/03/19 10:00 02/05/19 11:07 Imdur PO 30 mg QDAY JAMIE Administration Lorazepam 2 mg 01/26/19 11:04 Ativan IV Q1H PRN CIWA-Ar 8-15 Metolazone 5 mg 02/03/19 12:00 02/05/19 11:20 Zaroxolyn PO 5 mg QDAY JAMIE Administration Nitroglycerin 0.4 mg 01/26/19 11:04 Nitrostat SL .Q5MIN PRN Chest Pain Ondansetron HCl 4 mg 01/26/19 11:04 Zofran IV Q8H PRN Nausea And Vomiting Sodium Bicarbonate 1,300 mg 01/30/19 11:00 02/05/19 21:16 Sodium Bicarbonate PO 1,300 mg BID JAMIE Administration Sodium Chloride 10 ml 01/26/19 22:00 02/05/19 21:19 Sodium Chloride Flush Syringe 10 Ml IV 10 ml BID JAMIE Administration Sodium Chloride 10 ml 01/26/19 11:04 02/03/19 06:44 Sodium Chloride Flush Syringe 10 Ml IV 10 ml PRN PRN Administration LINE FLUSH Zolpidem Tartrate 5 mg 01/27/19 22:00 02/05/19 22:10 Ambien PO 5 mg QHS PRN Administration Sleep
[2019-02-06] MEDS: IMDUR PO SCH (14:55)
[2019-02-06] MEDS: SODIUM BICARBONATE PO SCH ×2 (14:56→23:21)
[2019-02-06] MEDS: COREG PO SCH ×2 (14:56→23:21)
[2019-02-06] MEDS: BABY ASPIRIN PO SCH (14:56)
[2019-02-06] MEDS: SODIUM CHLORIDE FLUSH SYRINGE 10 ML IV SCH ×2 (14:57→23:22)
--- NOTE | 2019-02-06 16:05 | Progress Note ---
Assessment and Plan /Acute mild systolic congestive heart failure , EF 45-50% On IV Bumex, metolazone and beta blockers cont Input output monitoring, low sodium diet fluid restriction Cardiology is following the patient, /Acute kidney injury secondary to ATN, Baseline Cr 1.2 Cr level slightly elevated today avoid nephrotoxins, nephrology following having good urine output /-Generalized anasarca and fluid overload, likely from cardiorenal syndrome Continue diuretics input output monitoring Nephrology following /Hypertensive urgency; present on admission Moderately controlled, continue carvedilol, hydralazine and amlodipine closely monitor /Non-ST elevated [place] type II; stress test no ischemia Mild systolic dysfunction EF 45-50% Continue current cardiac medications /Hypokalemia; Hypomagnesemia; corrected /-Diabetes mellitus; Well-controlled, Accu-Chek sliding scale coverage and ADA diet and insulin Avoid hypoglycemic episodes, diabetic diet, diabetic education /Peripheral vascular disease; Partial right foot amputation cont aspirin and statin /Severe malnutrition/hypoalbuminemia; nutrition consult /-Prior history of EtOH dependence; patient advised to quit alcohol intake /Chronic pancreatitis; stable /Anemia of chronic disease; stable H&H, transfuse as needed Iron supplements /-Medical noncompliance; strongly advised to comply with medications diet and follow-up visits, Patient verbalized understanding Disposition; follow nephrology recommendations, discharge when clears by nephrology Brief History The pt is a 53-year-old gentleman with a past medical history of DM, PVD s/p partial left foot amputation, chronic pancreatitis, prior ETOH abuse (states he quit drinking several years ago) does not have a PCP currently presented with complaints of BLE swelling, SOB and orthopnea for several days prior to arrival. He is now being managed for CHF exacerbation and ANYA Hospitalist Physical General appearance: Present: no acute distress, well-nourished - EENT Eyes: Present: PERRL, EOM intact - Neck Neck: Present: supple, normal ROM - Respiratory Respiratory effort: normal Respiratory: bilateral: diminished, rales, negative: rhonchi, wheezing - Cardiovascular Rhythm: regular Heart Sounds: Present: S1 & S2 - Extremities Extremities: no ischemia Extremity abnormal: 3+ edema - Abdominal General gastrointestinal: soft, non-tender, non-distended, normal bowel sounds - Integumentary Integumentary: Present: clear, warm - Psychiatric Psychiatric: appropriate mood/affect, cooperative - Neurologic Neurologic: CNII-XII intact, moves all extremities Subjective Date of service: 02/06/19 Principal diagnosis: HF Interval history: Patient seen and examined. Medical records and medication list reviewed. No acute event overnight noted by the RN. Patient denies any chest pain and improved breathing. Patient is tolerating diet. States he is having more urine output now and LE swelling much improved Discussed plan of care at bedside with patient. Objective - Constitutional Vitals: Vital Signs - 12hr 02/06/19 02/06/19 02/06/19 04:59 08:10 14:55 Temperature 98.5 F Pulse Rate 74 Respiratory 20 Rate Blood Pressure 136/85 125/73 141/85 O2 Sat by Pulse 97 Oximetry 02/06/19 14:56 Temperature Pulse Rate Respiratory Rate Blood Pressure 141/85 O2 Sat by Pulse Oximetry - Labs CBC & Chem 7: 02/03/19 07:23 02/06/19 05:58 Labs: Abnormal lab results 02/05/19 02/05/19 02/06/19 Range/Units 21:19 23:16 05:58 BUN 79 H (9-20) mg/dL Creatinine 3.2 H (0.8-1.5) mg/dL POC Glucose 61 L 152 H (70-105) 02/06/19 02/06/19 02/06/19 Range/Units 07:30 09:03 12:01 BUN (9-20) mg/dL Creatinine (0.8-1.5) mg/dL POC Glucose 62 L 162 H 188 H (70-105)
[2019-02-06] MEDS: ZAROXOLYN PO SCH (18:26)
[2019-02-06] MEDS: AMBIEN PO PRN (23:21)
[2019-02-07] MEDS: ALBURX 25% (ALBUMIN) IV SCH ×2 (05:57→17:56)
[2019-02-07] MEDS: BUMEX IV SCH ×2 (07:00→17:56)
[2019-02-07 07:20] LABS: Calcium 8.9 mg/dL (8.4-10.2)
[2019-02-07] MEDS: APRESOLINE PO SCH ×3 (08:49→21:38)
[2019-02-07] MEDS: HumaLOG SUB-Q SCH ×4 (08:49→21:39)
[2019-02-07] MEDS: CREON DR 12,000 UNITS PO SCH ×3 (08:50→15:51)
[2019-02-07] MEDS: SODIUM BICARBONATE PO SCH ×2 (09:36→21:38)
[2019-02-07] MEDS: COREG PO SCH ×2 (09:36→21:39)
[2019-02-07] MEDS: BABY ASPIRIN PO SCH (09:37)
[2019-02-07] MEDS: IMDUR PO SCH (09:37)
[2019-02-07] MEDS: SODIUM CHLORIDE FLUSH SYRINGE 10 ML IV SCH ×2 (09:38→21:40)
--- NOTE | 2019-02-07 11:33 | Progress Note ---
Assessment and Plan /Acute mild systolic congestive heart failure , EF 45-50% On IV Bumex, metolazone and beta blockers cont Input output monitoring, low sodium diet fluid restriction Cardiology is following the patient, /Acute kidney injury secondary to ATN, Baseline Cr 1.2 Cr level slightly elevated today avoid nephrotoxins, nephrology following having good urine output /-Generalized anasarca and fluid overload, likely from cardiorenal syndrome Continue diuretics input output monitoring Nephrology following /Hypertensive urgency; present on admission Moderately controlled, continue carvedilol, hydralazine and amlodipine closely monitor /Non-ST elevated [place] type II; stress test no ischemia Mild systolic dysfunction EF 45-50% Continue current cardiac medications /-Diabetes mellitus; Well-controlled, Accu-Chek sliding scale coverage and ADA diet and insulin Avoid hypoglycemic episodes, diabetic diet, diabetic education /Peripheral vascular disease; Partial right foot amputation cont aspirin and statin /Severe malnutrition/hypoalbuminemia; nutrition consult /-Prior history of EtOH dependence; patient advised to quit alcohol intake /Chronic pancreatitis; stable /Anemia of chronic disease; stable H&H, transfuse as needed Iron supplements /-Medical noncompliance; strongly advised to comply with medications diet and follow-up visits, Patient verbalized understanding Disposition; follow nephrology recommendations, discharge when clears by nephrology Subjective Date of service: 02/07/19 Principal diagnosis: acute systolic HF, HPI, hypertensive emergency, non-ST elevated [place], DM, Interval history: Laboratory in bed in no distress, no fever, denies any chest pain. Objective - Exam Narrative Exam: Constitutional: Well-nourished well-developed. In no distress Head: Normocephalic atraumatic Eyes: Pupils are equal round and reactive to light Nose: No enlarged turbinates, no septal deviation. Mouth: Moist mucous membranes. Neck: Supple no thyromegaly. No bruit. No JVD Heart: Regular rate and rhythm, S1-S2 normal. No rubs murmurs or gallop Lungs: Clear to auscultation bilaterally. no rales or rhonchi Abdomen: Soft, nontender. Bowel sound are present. Extremities: No edema, no cyanosis, no clubbing. Neuro: Alert oriented Oriented x3. No focal sensory or motor deficit. Skin: No rashes or hyperpigmented spots Musculoskeletal system: No joint pain or swelling Hematological: No petechia or subcutanous hemorrhages. Immunological: No multiple septic spots on the skin Lymphatic: No generalized lymphadenopathy Psychiatry: Euthymic. Calm. - Constitutional Vitals: Vital Signs - 12hr 02/07/19 02/07/19 02/07/19 05:19 05:58 06:56 Temperature 97.7 F 97.7 F 97.7 F Pulse Rate 77 77 73 Respiratory 20 20 20 Rate Blood Pressure 149/89 149/89 136/90 O2 Sat by Pulse 98 Oximetry 02/07/19 09:36 Temperature Pulse Rate 73 Respiratory Rate Blood Pressure 136/90 O2 Sat by Pulse Oximetry - Labs CBC & Chem 7: 02/03/19 07:23 02/07/19 05:53 Labs: Abnormal lab results 02/06/19 02/06/19 02/06/19 Range/Units 12:01 16:29 21:42 Sodium (137-145) mmol/L BUN (9-20) mg/dL Creatinine (0.8-1.5) mg/dL Glucose (75-100) mg/dL POC Glucose 188 H 146 H 245 H (70-105) 02/07/19 02/07/19 Range/Units 05:53 07:52 Sodium 147 H (137-145) mmol/L BUN 86 H (9-20) mg/dL Creatinine 3.1 H (0.8-1.5) mg/dL Glucose 275 H (75-100) mg/dL POC Glucose 219 H (70-105)
--- NOTE | 2019-02-07 11:36 | Progress Note ---
Assessment and Plan cont diuresis as per nephrology add sq heparin for dvy prophylaxis - watch h/h (chronic anemia) - Patient Problems (1) ANYA (acute kidney injury) Current Visit: Yes Status: Acute (2) Acute HFrEF (heart failure with reduced ejection fraction) Current Visit: Yes Status: Acute (3) Anemia Current Visit: Yes Status: Acute (4) Cardiomyopathy, alcoholic Current Visit: Yes Status: Acute (5) Diabetes Current Visit: Yes Status: Chronic Qualifiers: Diabetes mellitus type: type 1 Diabetes mellitus complication status: with circulatory complication Diabetes mellitus complication detail: with other circulatory complications Qualified Code(s): E10.59 - Type 1 diabetes mellitus with other circulatory complications (6) History of ETOH abuse Current Visit: Yes Status: Chronic (7) PVD (peripheral vascular disease) Current Visit: Yes Status: Chronic (8) Hypertension Current Visit: No Status: Acute Qualifiers: Hypertension type: essential hypertension Qualified Code(s): I10 - Essential (primary) hypertension Subjective Date of service: 02/07/19 Principal diagnosis: HF Interval history: feel better Objective Vital Signs Temp Pulse Resp BP Pulse Ox 02/07/19 09:36 73 136/90 02/07/19 06:56 97.7 F 73 20 136/90 02/07/19 05:58 97.7 F 77 20 149/89 02/07/19 05:19 97.7 F 77 20 149/89 98 02/06/19 23:21 141/80 02/06/19 23:15 97.8 F 81 18 141/80 100 02/06/19 17:22 98.3 F 77 18 120/70 100 02/06/19 14:56 141/85 02/06/19 14:55 141/85 02/06/19 14:46 141/85 02/06/19 13:19 98.3 F 80 16 125/65 97 - Physical Examination General: No Apparent Distress HEENT: Positive: PERRL, Normocephaly, Mucus Membranes Moist Neck: Positive: neck supple, JVD/HJR Neuro: Positive: Grossly Intact Abdomen: Negative: Tender Skin: Negative: Rash Musculoskeletal: other (partial left foot amputation ) Extremities: Present: +2 Edema - Labs and Meds Comprehensive Metabolic Panel 02/07/19 Range/Units 05:53 Sodium 147 H (137-145) mmol/L Potassium 4.4 (3.6-5.0) mmol/L Chloride 103.9 (98-107) mmol/L Carbon Dioxide 23 (22-30) mmol/L BUN 86 H (9-20) mg/dL Creatinine 3.1 H (0.8-1.5) mg/dL Glucose 275 H (75-100) mg/dL Calcium 8.9 (8.4-10.2) mg/dL - Imaging and Cardiology EKG: report reviewed, image reviewed Echo: report reviewed (EF 45-50%, mild LVH, restrictive diastolic filling, LA mildly dilated, RV mod dilated, RV systolic function mildly reduced, RA mildly dilated, trace MR, mild TR, RVSP 56mmHg, small pericardial effusion that does not appear to be hemodynamically significant. ) - EKG Sinus rhythms and dysrhythmias: sinus rhythm
[2019-02-07] MEDS: HEPARIN SUB-Q SCH ×2 (13:20→23:35)
--- NOTE | 2019-02-07 15:46 | Progress Note ---
Assessment and Plan - Patient Problems (1) Acute kidney injury Current Visit: Yes Status: Acute Plan to address problem: Acute kidney injury worsening Baseline creatinine 1.2 mg/dl Current creatinine 3.1mg/DL Given associated hypoalbuminemia and longstanding Diabetes and edema likely has a component of nephrotic syndrome Serologies negative Urine protein creatinine ration >1.5grams/gram We'll continue Bumex 2 mg IV twice a day Hold Metolazone. Etiology of acute kidney injury related with cardiorenal syndrome with underlying probable DM nephropathy. Avoid nephrotoxic medications (2) Acute heart failure Current Visit: Yes Status: Acute Qualifiers: Heart failure type: unspecified Qualified Code(s): I50.9 - Heart failure, unspecified Plan to address problem: Acute congestive heart failure. impaired diastolic function with restrictive pattern on Echocardiogram with reduced LVEF and dilated Cardiac chambers. Significant lower extremity edema distended neck veins Volume status is slowly improving Continue diuretics Immunofixation was negative. 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 Continue medications monitor fingersticks (5) Elevated creatine kinase Current Visit: Yes Status: Acute Plan to address problem: Admitted with elevated creatinine kinase level Denies any stressful exercise Ensure oral intake Also elevated troponin Cardiology Following Trend CK levels Subjective Principal diagnosis: HF Interval history: 53-year-old gentleman with history significant for hypertension admitted with complaints of worsening shortness of breath or significant orthopnea and PND also reports significant extremity edema Patient seen today Still has edema remains on oxygen distended neck veins. Objective - Vital Signs Vital signs: Vital Signs - 12hr 02/07/19 02/07/19 02/07/19 05:19 05:58 06:56 Temperature 97.7 F 97.7 F 97.7 F Pulse Rate 77 77 73 Pulse Rate [ Right Radial] Respiratory 20 20 20 Rate Blood Pressure 149/89 149/89 136/90 O2 Sat by Pulse 98 Oximetry 02/07/19 02/07/19 02/07/19 09:36 10:00 11:18 Temperature 97.8 F Pulse Rate 73 79 Pulse Rate [ 73 Right Radial] Respiratory 20 Rate Blood Pressure 136/90 113/61 O2 Sat by Pulse 97 Oximetry - General Appearance General appearance: well-developed, well-nourished EENT: ATNC, PERRL, mucous membranes moist Neck: no JVD Respiratory: Present: Clear to Ascultation Cardiology: regular, S1S2 Gastrointestinal: normal, normoactive bowel sounds Integumentary: no rash Neurologic: CN 3-12 intact Musculoskeletal: deferred, other (grade 2 edema) Psychiatric: mood/affect appropriate - Lab 02/03/19 07:23 02/07/19 05:53 Most recent lab results Calcium 8.9 mg/dL (8.4-10.2) 02/07/19 05:53 Phosphorus 4.10 mg/dL (2.5-4.5) 01/28/19 04:56 Magnesium 1.70 mg/dL (1.7-2.3) 01/28/19 04:56 51.1 mg/dL (0.1-20.0) H 01/28/19 15:55 82 mg/dL (5-11.8) H 01/28/19 15:55 - Imaging Chest x-ray: image reviewed (I reviewed chest x-ray with his opacities) Medications & Allergies - Medications Allergies/Adverse Reactions: Allergies No Known Allergies Allergy (Unverified 10/21/18 19:15) Home Medications: Home Medications Medication Instructions Recorded Confirmed Last Taken Type Acetaminophen [Acetaminophen TAB] 650 mg PO Q4H PRN #15 tablet 10/24/18 01/26/19 01/25/19 Rx Insulin NPH/Regular [NovoLIN 70/30] 20 unit SUB-Q BID #100 units 10/24/18 01/26/19 01/25/19 Rx Insulin Regular, Human [HumuLIN R] 1 dose SUB-Q ACHS PRN #100 units 10/24/18 01/26/19 01/25/19 Rx Lisinopril [Zestril TAB] 10 mg PO DAILY 01/26/19 01/26/19 01/25/19 History 10 mg amLODIPine [Norvasc] 10 mg PO DAILY 01/26/19 01/26/19 01/25/19 History 10 mg Active Medications: Generic Name Dose Route Start Last Admin Trade Name Freq PRN Reason Stop Dose Admin Acetaminophen 650 mg 01/26/19 11:08 Tylenol PO Q4H PRN Non Cardiac Pain or Temp>100.5 Albumin Human 25 gm 01/31/19 18:00 02/07/19 05:57 Alburx 25% (Albumin) IV 25 gm Q12H JAMIE Administration Albuterol 2.5 mg 01/31/19 22:33 02/01/19 22:37 Proventil IH 2.5 mg Q4HRT PRN Administration Shortness Of Breath Lipase/Protease/Amylase 6 each 01/26/19 16:30 02/07/19 13:[address] 12,000 Units PO 6 each AC JAMIE Administration Aspirin 81 mg 01/27/19 10:00 02/07/19 09:37 Baby Aspirin PO 81 mg QDAY JAMIE Administration Bumetanide 2 mg 01/31/19 18:00 02/07/19 07:00 Bumex IV 2 mg BID@0600,1800 JAMIE Administration Carvedilol 6.25 mg 01/26/19 15:00 02/07/19 09:36 Coreg PO 6.25 mg BID JAMIE Administration Dextrose 50 ml 01/26/19 11:09 01/26/19 13:03 D50w (25gm) Syringe IV 50 ml PRN PRN Administration Hypoglycemia Guaifenesin 10 ml 01/27/19 14:32 Guaifenesin Dm Syrup PO Q4H PRN Cough Heparin Sodium (Porcine) 5,000 unit 02/07/19 12:00 02/07/19 13:20 Heparin SUB-Q 5,000 unit Q12H JAMIE Administration Hydralazine HCl 10 mg 01/26/19 15:24 Apresoline IV Q4HR PRN Hypertension Hydralazine HCl 100 mg 02/03/19 14:00 02/07/19 13:20 Apresoline PO 100 mg TID JAMIE Administration Insulin Human Isoph/Insulin Regular 25 unit 02/05/19 17:00 02/07/19 08:52 Humulin 70/30 SUB-Q 25 unit BIDDIAB JAMIE Administration Insulin Human Lispro 0 unit 01/26/19 11:30 02/07/19 11:30 Humalog SUB-Q Not Given ACHS [facility] Protocol Isosorbide Mononitrate 30 mg 02/03/19 10:00 02/07/19 09:37 Imdur PO 30 mg QDAY JAMIE Administration Lorazepam 2 mg 01/26/19 11:04 Ativan IV Q1H PRN CIWA-Ar 8-15 Nitroglycerin 0.4 mg 01/26/19 11:04 Nitrostat SL .Q5MIN PRN Chest Pain Ondansetron HCl 4 mg 01/26/19 11:04 Zofran IV Q8H PRN Nausea And Vomiting Sodium Bicarbonate 1,300 mg 01/30/19 11:00 02/07/19 09:36 Sodium Bicarbonate PO 1,300 mg BID JAMIE Administration Sodium Chloride 10 ml 01/26/19 22:00 02/07/19 09:38 Sodium Chloride Flush Syringe 10 Ml IV 10 ml BID JAMIE Administration Sodium Chloride 10 ml 01/26/19 11:04 02/03/19 06:44 Sodium Chloride Flush Syringe 10 Ml IV 10 ml PRN PRN Administration LINE FLUSH Zolpidem Tartrate 5 mg 01/27/19 22:00 02/06/19 23:21 Ambien PO 5 mg QHS PRN Administration Sleep
[2019-02-07] MEDS: AMBIEN PO PRN (22:20)
[2019-02-07 22:36] LABS: Creatinine 24 Hour,Urine 1.3 (0.8-2.8); Creatinine,Urine 37.3 mg/dL (0.1-20.0)
[2019-02-08 05:46] LABS: Basophils # (Auto) 0.1 K/mm3 (0.0-0.1); Basophils % (Auto) 1.4 % (0.0-1.8); Eosinophils # (Auto) 0.3 K/mm3 (0.0-0.4); Eosinophils % (Auto) 5.8 % (0.0-4.3); Hematocrit 20.9 % (35.5-45.6); Hemoglobin 6.8 gm/dl (11.8-15.2); Lymphocytes # (Auto) 0.8 K/mm3 (1.2-5.4); Lymphocytes % (Auto) 15.6 % (13.4-35.0); Mean Corpuscular HGB Conc 33 % (32-34); Mean Corpuscular Volume 82 fl (84-94); Monocytes # (Auto) 0.5 K/mm3 (0.0-0.8); Monocytes % (Auto) 10.3 % (0.0-7.3); Platelet Count 154 K/mm3 (140-440); Red Blood Count 2.56 M/mm3 (3.65-5.03); Red Cell Distribution Width 15.9 % (13.2-15.2)
[2019-02-08 06:06] LABS: Albumin 4.6 g/dL (3.9-5); Calcium 9.3 mg/dL (8.4-10.2)
[2019-02-08] MEDS: ALBURX 25% (ALBUMIN) IV SCH ×2 (06:10→20:25)
[2019-02-08] MEDS: BUMEX IV SCH ×2 (06:13→20:26)
[2019-02-08] MEDS: IMDUR PO SCH (09:16)
[2019-02-08] MEDS: HumaLOG SUB-Q SCH ×4 (09:17→22:48)
[2019-02-08] MEDS: SODIUM BICARBONATE PO SCH ×2 (09:19→21:41)
[2019-02-08] MEDS: APRESOLINE PO SCH ×3 (09:20→21:42)
[2019-02-08] MEDS: COREG PO SCH ×2 (09:20→21:42)
[2019-02-08] MEDS: SODIUM CHLORIDE FLUSH SYRINGE 10 ML IV SCH ×2 (09:21→22:49)
[2019-02-08] MEDS: BABY ASPIRIN PO SCH (09:21)
[2019-02-08] MEDS: CREON DR 12,000 UNITS PO SCH ×3 (09:22→18:00)
[2019-02-08 11:30] LABS: Creatinine,Urine 37.3 mg/dL (0.1-20.0)
--- NOTE | 2019-02-08 11:39 | Progress Note ---
Assessment and Plan /Acute mild systolic congestive heart failure , EF 45-50% On IV Bumex, metolazone and beta blockers cont Input output monitoring, low sodium diet fluid restriction Cardiology is following the patient, /Acute kidney injury secondary to ATN, Baseline Cr 1.2 Cr level slightly elevated today avoid nephrotoxins, nephrology following having good urine output /-Generalized anasarca and fluid overload, likely from cardiorenal syndrome Continue diuretics input output monitoring Nephrology following / Anemia - likely of chronic disease trend transfuse one unit. post transfusion h/h /Hypertensive urgency; present on admission - resolving Moderately controlled, continue carvedilol, hydralazine and amlodipine closely monitor /Non-ST elevated [place] type II; stress test no ischemia Mild systolic dysfunction EF 45-50% Continue current cardiac medications /-Diabetes mellitus; Well-controlled, Accu-Chek sliding scale coverage and ADA diet and insulin Avoid hypoglycemic episodes, diabetic diet, diabetic education /Peripheral vascular disease; S/p right TMA cont aspirin and statin /Severe malnutrition/hypoalbuminemia; nutrition consult /-Prior history of EtOH dependence; patient advised to quit alcohol intake /Chronic pancreatitis; stable /Anemia of chronic disease; stable H&H, transfuse as needed Iron supplements /-Medical noncompliance; strongly advised to comply with medications diet and follow-up visits, Patient verbalized understanding Disposition; follow nephrology recommendations, discharge when clears by [facility] hrology Subjective Date of service: 02/08/19 Principal diagnosis: acute systolic HF, HPI, hypertensive emergency, non-ST elevated DE, DM, Interval history: Laboratory in bed in no distress, no fever, denies any chest pain. Objective - Exam Narrative Exam: Constitutional: Anasarca. In no distress Head: Normocephalic atraumatic Eyes: Pupils are equal round and reactive to light Nose: No enlarged turbinates, no septal deviation. Mouth: Moist mucous membranes. Neck: Supple no thyromegaly. No bruit. No JVD Heart: Regular rate and rhythm, S1-S2 normal. No rubs murmurs or gallop Lungs: Clear to auscultation bilaterally. no rales or rhonchi Abdomen: Soft, nontender. Bowel sound are present. Extremities: 3+ edema, no cyanosis, no clubbing. Neuro: Alert oriented Oriented x3. No focal sensory or motor deficit. Skin: No rashes or hyperpigmented spots Musculoskeletal system: No joint pain or swelling Hematological: No petechia or subcutanous hemorrhages. Immunological: No multiple septic spots on the skin Lymphatic: No generalized lymphadenopathy Psychiatry: Euthymic. Calm. - Constitutional Vitals: Vital Signs - 12hr 02/07/19 02/08/19 02/08/19 23:47 06:35 09:16 Temperature 98.5 F 98.1 F Pulse Rate 79 77 77 Respiratory 18 20 Rate Blood Pressure 119/72 145/88 145/88 O2 Sat by Pulse 99 97 Oximetry 02/08/19 09:20 Temperature Pulse Rate 77 Respiratory Rate Blood Pressure 145/88 O2 Sat by Pulse Oximetry - Labs CBC & Chem 7: 02/08/19 05:30 02/08/19 05:30 Labs: Abnormal lab results 02/06/19 02/06/19 02/07/19 Range/Units 11:07 11:07 11:55 RBC (3.65-5.03) M/mm3 Hgb (11.8-15.2) gm/dl Hct (35.5-45.6) % MCV (84-94) fl MCH (28-32) pg RDW (13.2-15.2) % Roane % (Auto) (0.0-7.3) % Eos % (Auto) (0.0-4.3) % Lymph # (1.2-5.4) K/mm3 BUN (9-20) mg/dL Creatinine (0.8-1.5) mg/dL Glucose (75-100) mg/dL POC Glucose 65 L (70-105) Alkaline Phosphatase (35-129) units/L Total Creatine Kinase (55-170) units/L NT-Pro-B Natriuret Pep (0-900) pg/mL Urine Creatinine 37.3 H 37.3 H (0.1-20.0) mg/dL 02/07/19 02/08/19 02/08/19 Range/Units 21:29 05:30 05:30 RBC 2.56 L (3.65-5.03) M/mm3 Hgb 6.8 L (11.8-15.2) gm/dl Hct 20.9 L (35.5-45.6) % MCV 82 L (84-94) fl MCH 27 L (28-32) pg RDW 15.9 H (13.2-15.2) % Roane % (Auto) 10.3 H (0.0-7.3) % Eos % (Auto) 5.8 H (0.0-4.3) % Lymph # 0.8 L (1.2-5.4) K/mm3 BUN 83 H (9-20) mg/dL Creatinine 2.8 H (0.8-1.5) mg/dL Glucose 158 H (75-100) mg/dL POC Glucose 68 L (70-105) Alkaline Phosphatase 162 H (35-129) units/L Total Creatine Kinase 1122 H (55-170) units/L NT-Pro-B Natriuret Pep 39190 H (0-900) pg/mL Urine Creatinine (0.1-20.0) mg/dL 02/08/19 Range/Units 08:00 RBC (3.65-5.03) M/mm3 Hgb (11.8-15.2) gm/dl Hct (35.5-45.6) % MCV (84-94) fl MCH (28-32) pg RDW (13.2-15.2) % Roane % (Auto) (0.0-7.3) % Eos % (Auto) (0.0-4.3) % Lymph # (1.2-5.4) K/mm3 BUN (9-20) mg/dL Creatinine (0.8-1.5) mg/dL Glucose (75-100) mg/dL POC Glucose 167 H (70-105) Alkaline Phosphatase (35-129) units/L Total Creatine Kinase (55-170) units/L NT-Pro-B Natriuret Pep (0-900) pg/mL Urine Creatinine (0.1-20.0) mg/dL
--- NOTE | 2019-02-08 11:46 | Progress Note ---
Assessment and Plan cont diuresis as per nephrology d/c sq heparin consider transfusion per primary - Patient Problems (1) ANYA (acute kidney injury) Current Visit: Yes Status: Acute (2) Acute HFrEF (heart failure with reduced ejection fraction) Current Visit: Yes Status: Acute (3) Anemia Current Visit: Yes Status: Acute (4) Cardiomyopathy, alcoholic Current Visit: Yes Status: Acute (5) Diabetes Current Visit: Yes Status: Chronic Qualifiers: Diabetes mellitus type: type 1 Diabetes mellitus complication status: with circulatory complication Diabetes mellitus complication detail: with other circulatory complications Qualified Code(s): E10.59 - Type 1 diabetes mellitus with other circulatory complications (6) History of ETOH abuse Current Visit: Yes Status: Chronic (7) PVD (peripheral vascular disease) Current Visit: Yes Status: Chronic (8) Hypertension Current Visit: No Status: Acute Qualifiers: Hypertension type: essential hypertension Qualified Code(s): I10 - Essential (primary) hypertension Subjective Date of service: 02/08/19 Principal diagnosis: acute systolic HF, HPI, hypertensive emergency, non-ST elevated MT, DM, Interval history: tired, but no cp/sob Objective Vital Signs Temp Pulse Resp BP Pulse Ox 02/08/19 09:20 77 145/88 02/08/19 09:16 77 145/88 02/08/19 06:35 98.1 F 77 20 145/88 97 02/07/19 23:47 98.5 F 79 18 119/72 99 02/07/19 21:39 81 152/93 02/07/19 17:03 97.4 F L 79 22 145/83 96 - Physical Examination General: No Apparent Distress HEENT: Positive: PERRL, Normocephaly, Mucus Membranes Moist Neck: Positive: neck supple, JVD/HJR Neuro: Positive: Grossly Intact Abdomen: Negative: Tender Skin: Negative: Rash Musculoskeletal: other (partial left foot amputation ) Extremities: Present: +2 Edema - Labs and Meds Cardiac Enzymes 02/08/19 Range/Units 05:30 AST 39 (5-40) units/L CBC 02/08/19 Range/Units 05:30 WBC 4.9 (4.5-11.0) K/mm3 RBC 2.56 L (3.65-5.03) M/mm3 Hgb 6.8 L (11.8-15.2) gm/dl Hct 20.9 L (35.5-45.6) % Plt Count 154 (140-440) K/mm3 Lymph # 0.8 L (1.2-5.4) K/mm3 Peach # 0.5 (0.0-0.8) K/mm3 Eos # 0.3 (0.0-0.4) K/mm3 Baso # 0.1 (0.0-0.1) K/mm3 Comprehensive Metabolic Panel 02/08/19 Range/Units 05:30 Sodium 143 (137-145) mmol/L Potassium 4.6 (3.6-5.0) mmol/L Chloride 103.1 (98-107) mmol/L Carbon Dioxide 25 (22-30) mmol/L BUN 83 H (9-20) mg/dL Creatinine 2.8 H (0.8-1.5) mg/dL Glucose 158 H (75-100) mg/dL Calcium 9.3 (8.4-10.2) mg/dL AST 39 (5-40) units/L ALT 37 (7-56) units/L Alkaline Phosphatase 162 H (35-129) units/L Total Protein 6.5 (6.3-8.2) g/dL Albumin 4.6 (3.9-5) g/dL - Imaging and Cardiology EKG: report reviewed, image reviewed Echo: report reviewed (EF 45-50%, mild LVH, restrictive diastolic filling, LA mildly dilated, RV mod dilated, RV systolic function mildly reduced, RA mildly dilated, trace MR, mild TR, RVSP 56mmHg, small pericardial effusion that does not appear to be hemodynamically significant. ) - EKG Sinus rhythms and dysrhythmias: sinus rhythm
[2019-02-08] MEDS ORDERED: NACL 0.9% 500 ML 500 ML IV ONE ×2 (16:37→23:15)
[2019-02-09] MEDS: AMBIEN PO PRN (00:27)
[2019-02-09] MEDS: ALBURX 25% (ALBUMIN) IV SCH (05:10)
[2019-02-09] MEDS: BUMEX IV SCH (05:11)
[2019-02-09 07:48] LABS: Basophils % (Auto) 0.9 % (0.0-1.8); Eosinophils # (Auto) 0.3 K/mm3 (0.0-0.4); Eosinophils % (Auto) 6.8 % (0.0-4.3); Hematocrit 22.3 % (35.5-45.6); Hemoglobin 7.6 gm/dl (11.8-15.2); Lymphocytes # (Auto) 0.7 K/mm3 (1.2-5.4); Lymphocytes % (Auto) 16.1 % (13.4-35.0); Mean Corpuscular HGB Conc 34 % (32-34); Mean Corpuscular Volume 81 fl (84-94); Monocytes # (Auto) 0.5 K/mm3 (0.0-0.8); Monocytes % (Auto) 10.4 % (0.0-7.3); Platelet Count 152 K/mm3 (140-440); Red Blood Count 2.74 M/mm3 (3.65-5.03); Red Cell Distribution Width 15.7 % (13.2-15.2)
[2019-02-09 08:09] LABS: Calcium 9.4 mg/dL (8.4-10.2)
[2019-02-09] MEDS: HumaLOG SUB-Q SCH ×2 (08:33→13:16)
[2019-02-09] MEDS: CREON DR 12,000 UNITS PO SCH ×2 (08:40→13:15)
[2019-02-09] MEDS: APRESOLINE PO SCH ×2 (08:40→13:15)
[2019-02-09] MEDS: IMDUR PO SCH (10:05)
[2019-02-09] MEDS: BABY ASPIRIN PO SCH (10:05)
[2019-02-09] MEDS: SODIUM BICARBONATE PO SCH (10:05)
[2019-02-09] MEDS: COREG PO SCH (10:05)
[2019-02-09] MEDS: SODIUM CHLORIDE FLUSH SYRINGE 10 ML IV SCH (10:05)
--- NOTE | 2019-02-09 11:16 | Progress Note ---
Assessment and Plan Cont diuresis per nephrology and monitor renal indices. No ACEI/ARB at this time in setting of renal insufficiency. Monitor H/H and consider PRBC tx per primary. The patient has been seen in conjunction with Dr. Galvez who agrees with the assessment and plan of care. - Patient Problems (1) Acute HFrEF (heart failure with reduced ejection fraction) Current Visit: Yes Status: Acute (2) Cardiomyopathy Current Visit: Yes Status: Chronic Plan to address problem: presumably nonischemic, ? alcoholic - lexiscan MPI stress test 01/29/2019 negative for significant ischemia, EF 44%. (3) ANYA (acute kidney injury) Current Visit: Yes Status: Acute (4) NSTEMI (non-ST elevated myocardial infarction) Current Visit: Yes Status: Acute Plan to address problem: type II (5) Uncontrolled hypertension Current Visit: Yes Status: Chronic (6) Diabetes Current Visit: Yes Status: Chronic Qualifiers: Diabetes mellitus type: type 1 Diabetes mellitus complication status: with circulatory complication Diabetes mellitus complication detail: with other circulatory complications Qualified Code(s): E10.59 - Type 1 diabetes mellitus with other circulatory complications (7) History of chronic pancreatitis Current Visit: Yes Status: Chronic (8) History of ETOH abuse Current Visit: Yes Status: Chronic (9) PVD (peripheral vascular disease) Current Visit: Yes Status: Chronic (10) Anemia Current Visit: Yes Status: Acute Subjective Date of service: 02/09/19 Principal diagnosis: acute systolic HF, HPI, hypertensive emergency, non-ST elevated DC, DM, Interval history: pt resting in bed, SOB and BLE swelling remain present. Objective Last Vital Signs Temp 97.3 F L 02/09/19 04:15 Pulse 75 02/09/19 04:15 Resp 20 02/09/19 04:15 BP 143/90 02/09/19 04:15 Pulse Ox 97 02/08/19 23:30 - Physical Examination General: No Apparent Distress HEENT: Positive: PERRL, Normocephaly, Mucus Membranes Moist Neck: Positive: neck supple, JVD/HJR Cardiac: Positive: Reg Rate and Rhythm, S1/S2 Lungs: Positive: Decreased Breath Sounds Neuro: Positive: Grossly Intact Abdomen: Negative: Tender Skin: Negative: Rash Musculoskeletal: other (partial left foot amputation ) Extremities: Present: +2 Edema - Labs and Meds CBC 02/09/19 Range/Units 06:59 WBC 4.6 (4.5-11.0) K/mm3 RBC 2.74 L (3.65-5.03) M/mm3 Hgb 7.6 L (11.8-15.2) gm/dl Hct 22.3 L (35.5-45.6) % Plt Count 152 (140-440) K/mm3 Lymph # 0.7 L (1.2-5.4) K/mm3 Maverick # 0.5 (0.0-0.8) K/mm3 Eos # 0.3 (0.0-0.4) K/mm3 Baso # 0.0 (0.0-0.1) K/mm3 Comprehensive Metabolic Panel 02/09/19 Range/Units 06:59 Sodium 146 H (137-145) mmol/L Potassium 4.3 (3.6-5.0) mmol/L Chloride 101.2 (98-107) mmol/L Carbon Dioxide 24 (22-30) mmol/L BUN 93 H (9-20) mg/dL Creatinine 2.9 H (0.8-1.5) mg/dL Glucose 109 H (75-100) mg/dL Calcium 9.4 (8.4-10.2) mg/dL - Imaging and Cardiology EKG: report reviewed, image reviewed Echo: report reviewed (EF 45-50%, mild LVH, restrictive diastolic filling, LA mildly dilated, RV mod dilated, RV systolic function mildly reduced, RA mildly dilated, trace MR, mild TR, RVSP 56mmHg, small pericardial effusion that does not appear to be hemodynamically significant. ) - Telemetry EKG Rhythm: Sinus Rhythm - EKG Sinus rhythms and dysrhythmias: sinus rhythm
--- NOTE | 2019-02-09 11:31 | Discharge Summary ---
Providers - Providers Date of Admission: 01/26/19 10:38 Date of discharge: 02/09/19 Attending physician: JEFFREY CRAIG 01/26/19 10:26 Consult to Physician [CONS] Urgent Comment: Consulting Provider: JAY DEAN Physician Instructions: Reason For Exam: edema, tyPE 2 mi 01/26/19 11:04 Consult to Physician [CONS] Routine Comment: Consulting Provider: YOKO RAYGOZA Physician Instructions: Reason For Exam: alexander 01/26/19 11:10 Consult to Dietitian/Nutrition [CONS] Routine Physician Instructions: Reason For Exam: Reason for Consult: Diet education 02/06/19 10:37 Physical Therapy Evaluation and Treat [CONS] Routine Comment: Reason For Exam: placement Primary care physician: COSTUMER Hospitalization Reason for admission: leg swelling b/l Condition: Stable Pertinent studies: CXR cardiac stress test 2d echo Lower extremity doppler Hospital course: Patient is a 53 year old male with past medical history of DM, PVD s/p partial right foot amputation, chronic pancreatitis, prior ETOH abuse (states he quit drinking several years ago) presented to the ED with complaints of bilateral lower extremity swelling, shortness of breath and orthopnea which she states has been going on for several days prior to arrival but on further discussion the patient reported that he just recently located from the [facility] and has been to multiple hospitals at that [facility]. On arrival to the ER the patient was noted to have elevated creatinine and troponin and also elevated bilateral swelling. He does not have a PCP currently. He was admitted for further evaluation and management. Discharge diagnosis and management: /Acute mild systolic congestive heart failure , EF 45-50% Placed On IV Bumex, metolazone and beta blockers , Input output monitoring, low sodium diet, fluid restriction Cardiology consulted, medications optimized NO ACEI for renal failure, further management outpt /Acute kidney injury secondary to ATN, Baseline Cr 1.2, avoid nephrotoxins, nephrology consulted having good urine output, will continue outpt followup /-Generalized anasarca and fluid overload, likely from cardiorenal syndrome managed with diuretics input output monitoring / Anemia - likely of chronic disease transfused one unit PRBC. post transfusion h/h was stable /Hypertensive urgency; present on admission - resolved continue carvedilol, hydralazine and amlodipine closely monitor outpt, cont diuretics also /Non-ST elevated [place] type II; stress test no ischemia Mild systolic dysfunction EF 45-50% Continue current cardiac medications /-Diabetes mellitus; Well-controlled, Accu-Chek sliding scale coverage and ADA diet and insulin Avoid hypoglycemic episodes, given diabetic diet, diabetic education /Peripheral vascular disease; S/p right TMA cont aspirin and statin /Severe malnutrition/hypoalbuminemia; nutrition consulted /-Prior history of EtOH dependence; patient advised to quit alcohol intake /Chronic pancreatitis; stable /Anemia of chronic disease; stable H&H, transfuse as needed Iron supplements /-Medical noncompliance; strongly advised to comply with medications diet and follow-up visits, Patient verbalized understanding Disposition; home with outpt followup Physical exam Constitutional: In no distress Head: Normocephalic atraumatic Eyes: Pupils are equal round and reactive to light Nose: No enlarged turbinates, no septal deviation. Mouth: Moist mucous membranes. Neck: Supple no thyromegaly. No bruit. No JVD Heart: Regular rate and rhythm, S1-S2 normal. No rubs murmurs or gallop Lungs: Clear to auscultation bilaterally. no rales or rhonchi Abdomen: Soft, nontender. Bowel sound are present. Extremities: slight edema, no cyanosis, no clubbing. Neuro: Alert oriented Oriented x3. No focal sensory or motor deficit. Skin: No rashes or hyperpigmented spots Musculoskeletal system: No joint pain or swelling Psychiatry: Euthymic. Calm. Disposition: TO HOME OR SELFCARE Time spent for discharge: 34 minutes Core Measure Documentation - Palliative Care Palliative Care/ Comfort Measures: Not Applicable - Core Measures Any of the following diagnoses?: heart failure - Heart Failure Discharge Requirements YADY/ARB for LVSD if EF <40%: Not Applicable Beta ko at discharge: Yes Exam - Constitutional Vitals: Temp Pulse Resp BP Pulse Ox 97.3 F L 75 20 143/90 97 02/09/19 04:15 02/09/19 04:15 02/09/19 04:15 02/09/19 04:15 02/08/19 23:30 Plan Activity: advance as tolerated Weight Bearing Status: Weight Bear as Tolerated Diet: low fat, low salt, diabetic Special Instructions: record daily weights, record daily BP diary, record blood sugar diary Follow up with: PRIMARY CARE, [Primary Care Provider] - 3-5 Days HUBER FLOWERS MD [Staff Physician] - 7 Days Prescriptions: AtorvaSTATin [Lipitor] 20 mg PO QHS #30 tab hydrALAZINE [Apresoline TAB] 100 mg PO TID #90 tab Aspirin [Aspirin BABY CHEW TAB] 81 mg PO QDAY #30 tab.chew Bumetanide [Bumetanide 2 mg tab] 2 mg PO DAILY #30 tab Carvedilol [Coreg] 6.25 mg PO BID #60 tablet Lipase/Protease/Amylase [Alex Espinoza 12,000 Units] 6 each PO AC #30 capsule ISOSORBIDE MONOnitrate [Imdur ER] 30 mg PO QDAY #30 tablet Insulin NPH/Regular [NovoLIN 70/30] 25 unit SUB-Q BIDDIAB #10 ml Sodium Bicarbonate 1,300 mg PO BID #60 tablet
[2019-02-09 12:11] VITALS: BP 149/88
== END 2019-02-09 15:34 | disposition home or self-care (01) | DRG 280 ==
LOC: ED 06:54 → 3A 10:38 → 4A 18:53 → 3A 01-31 16:56
PROVIDERS: ADMIT Internal Medicine; ATTEND Internal Medicine
PROC: 30233N1 Transfusion of Nonautologous Red Blood Cells into Peripheral Vein, Percutaneous Approach (ICD-10-PCS; principal; 2019-02-09)
DX: I21.A1 Myocardial infarction type 2 (principal); I50.21 Acute systolic (congestive) heart failure; N17.0 Acute kidney failure with tubular necrosis; E43 Unspecified severe protein-calorie malnutrition; I42.6 Alcoholic cardiomyopathy; K86.1 Other chronic pancreatitis; I16.0 Hypertensive urgency; I11.0 Hypertensive heart disease with heart failure; E11.59 Type 2 diabetes mellitus with other circulatory complications; E11.51 Type 2 diabetes mellitus with diabetic peripheral angiopathy without gangrene; E11.40 Type 2 diabetes mellitus with diabetic neuropathy, unspecified; D63.8 Anemia in other chronic diseases classified elsewhere; E87.6 Hypokalemia; E83.42 Hypomagnesemia; Z79.899 Other long term (current) drug therapy; Z89.431 Acquired absence of right foot; Z79.4 Long term (current) use of insulin; Z91.14 Patient's other noncompliance with medication regimen; Z68.30 Body mass index [BMI] 30.0-30.9, adult
CPT/HCPCS: 36415; 71046; 76770; 78452; 80048; 80053; 80061; 80076; 82550; 82553; 82565; 82570; 82575; 82962; 83735; 83880; 84100; 84156; 84484; 85014; 85018; 85025; 85049; 85520; 85610; 85730; 86038; 86160; 86334; 86850; 86900; 86901; 86920; 87116; 93005; 93010; 93017; 93306; 93970; 94640; 94760; 96374; G0378; A9502; J0360; J1205; J1644; J1815; J1940; J2785; J3475; J7040; P9016; P9047

== ENCOUNTER 2019-07-30 13:46 | Emergency (ER) | payer MEDICAID ==
--- NOTE | 2019-07-30 14:23 | Event Note ---
ED Screening Note Date of service: 07/30/19 Time: 14:20 ED Screening Note: 53 y o male with PMH of DM on Insulin presents cc of elev BS at home as well as right groin mass that he pushes in the shaniqua causing him discomfort This initial assessment/diagnostic orders/clinical plan/treatment(s) is/are subject to change based on patients health status, clinical progression and re- assessment by fellow clinical providers in the ED. Further treatment and workup at subsequent clinical providers discretion. Patient/guardian urged not to elope from the ED as their condition may be serious if not clinically assessed and managed. Initial orders include: FS: 264 labs US groin
--- NOTE | 2019-07-30 15:53 | Ultrasound Report ---
ULTRASOUND SCROTUM INDICATION: right groin swelling. COMPARISON None available. FINDINGS: RIGHT TESTICLE: Normal in size and appearance with expected color flow. RIGHT EPIDIDYMIS: No significant abnormality. LEFT TESTICLE: Normal in size and appearance with expected color flow. LEFT EPIDIDYMIS: No significant abnormality. HYDROCELE: None seen. VARICOCELE: None seen. ADDITIONAL FINDINGS: No hernia or other significant abnormality is seen. IMPRESSION: No significant sonographic abnormality of the scrotum/testicles. Signer Name: Mikey Webb MD Signed: 07/30/2019 3:49 PM Workstation Name: [id number]
[2019-07-30 16:30] LABS: Basophils % (Auto) 0.6 % (0.0-1.8); Eosinophils % (Auto) 3.8 % (0.0-4.3); Hematocrit 32.9 % (35.5-45.6); Hemoglobin 10.9 gm/dl (11.8-15.2); Lymphocytes % (Auto) 23.4 % (13.4-35.0); Mean Corpuscular HGB Conc 33 % (32-34); Mean Corpuscular Volume 86 fl (84-94); Monocytes % (Auto) 6.4 % (0.0-7.3); Platelet Count 163 K/mm3 (140-440); Red Blood Count 3.83 M/mm3 (3.65-5.03); Red Cell Distribution Width 14.7 % (13.2-15.2)
[2019-07-30 16:31] LABS: Albumin 3.7 g/dL (3.9-5); Basophils # (Auto) 0.1 K/mm3 (0.0-0.1); Calcium 8.7 mg/dL (8.4-10.2); Eosinophils # (Auto) 0.3 K/mm3 (0.0-0.4); Monocytes # (Auto) 0.5 K/mm3 (0.0-0.8)
--- NOTE | 2019-07-30 21:04 | Emergency Department Report ---
ED General Adult HPI - General Chief complaint: Hyperglycemia Stated complaint: HERNIA/BLOOD SUGAR/HBP Time Seen by Provider: 07/30/19 20:52 Source: patient Mode of arrival: Ambulatory Limitations: No Limitations - History of Present Illness Initial comments: Patient is 53 years old male with history of hypertension, diabetes and chronic kidney disease. Patient presented to the ER complaining of swelling to the right groin area for the last 2 weeks. Patient also stated that he has been having elevated blood sugar. Patient describes the swelling as comes and goes. Patient stated that he is able to push it back easily. Patient denied any vomiting or diarrhea. No fever or chills. Patient denied chest pain, shortness of breath or cough. - Related Data Previous Rx's Medication Instructions Recorded Last Taken Type Acetaminophen [Acetaminophen TAB] 650 mg PO Q4H PRN #15 tablet 10/24/18 01/25/19 Rx Aspirin [Aspirin BABY CHEW TAB] 81 mg PO QDAY #30 tab.chew 02/09/19 Unknown Rx AtorvaSTATin [Lipitor] 20 mg PO QHS #30 tab 02/09/19 Unknown Rx Bumetanide [Bumetanide 2 mg tab] 2 mg PO DAILY #30 tab 02/09/19 Unknown Rx ISOSORBIDE MONOnitrate [Imdur ER] 30 mg PO QDAY #30 tablet 02/09/19 Unknown Rx Insulin NPH/Regular [NovoLIN 70/30] 25 unit SUB-Q BIDDIAB #10 ml 02/09/19 Unknown Rx Lipase/Protease/Amylase [Creon Dr 6 each PO AC #30 capsule 02/09/19 Unknown Rx 12,000 Units] Sodium Bicarbonate 1,300 mg PO BID #60 tablet 02/09/19 Unknown Rx carvediloL [Coreg] 6.25 mg PO BID #60 tablet 02/09/19 Unknown Rx hydrALAZINE [Apresoline TAB] 100 mg PO TID #90 tab 02/09/19 Unknown Rx Allergies Allergy/AdvReac Type Severity Reaction Status Date / Time No Known Allergies Allergy Unverified 10/21/18 19:15 ED Review of Systems ROS: Stated complaint: HERNIA/BLOOD SUGAR/HBP Other details as noted in HPI Comment: All other systems reviewed and negative Constitutional: denies: chills, diaphoresis Respiratory: denies: cough Cardiovascular: denies: chest pain Gastrointestinal: denies: abdominal pain Musculoskeletal: denies: back pain Neurological: denies: headache, weakness ED Past Medical Hx - Past Medical History Previous Medical History?: Yes Hx Hypertension: Yes Hx Congestive Heart Failure: Yes Hx Diabetes: Yes Hx Asthma: No Hx COPD: No - Surgical History Past Surgical History?: Yes Additional Surgical History: toes amputated - Social History Smoking Status: Former Smoker Substance Use Type: None - Medications Home Medications: Home Medications Medication Instructions Recorded Confirmed Last Taken Type Acetaminophen [Acetaminophen TAB] 650 mg PO Q4H PRN #15 tablet 10/24/18 01/26/19 01/25/19 Rx Aspirin [Aspirin BABY CHEW TAB] 81 mg PO QDAY #30 tab.chew 02/09/19 Unknown Rx AtorvaSTATin [Lipitor] 20 mg PO QHS #30 tab 02/09/19 Unknown Rx Bumetanide [Bumetanide 2 mg tab] 2 mg PO DAILY #30 tab 02/09/19 Unknown Rx ISOSORBIDE MONOnitrate [Imdur ER] 30 mg PO QDAY #30 tablet 02/09/19 Unknown Rx Insulin NPH/Regular [NovoLIN 70/30] 25 unit SUB-Q BIDDIAB #10 ml 02/09/19 Unknown Rx Lipase/Protease/Amylase [Creon Dr 6 each PO AC #30 capsule 02/09/19 Unknown Rx 12,000 Units] Sodium Bicarbonate 1,300 mg PO BID #60 tablet 02/09/19 Unknown Rx carvediloL [Coreg] 6.25 mg PO BID #60 tablet 02/09/19 Unknown Rx hydrALAZINE [Apresoline TAB] 100 mg PO TID #90 tab 02/09/19 Unknown Rx ED Physical Exam - General Limitations: No Limitations General appearance: alert, in no apparent distress - Head Head exam: Present: atraumatic, normocephalic, normal inspection - Eye Eye exam: Present: normal appearance - ENT ENT exam: Present: normal exam, normal orophraynx, mucous membranes moist - Neck Neck exam: Present: normal inspection, full ROM. Absent: tenderness, mening ismus, lymphadenopathy, thyromegaly - Respiratory Respiratory exam: Present: normal lung sounds bilaterally - Cardiovascular Cardiovascular Exam: Present: regular rate, normal rhythm, normal heart sounds - GI/Abdominal GI/Abdominal exam: Present: soft, normal bowel sounds, hernia (right inguinal hernia, easily reducible.). Absent: distended, tenderness, guarding, rebound, rigid, organomegaly, mass, bruit, pulsatile mass - Extremities Exam Extremities exam: Present: full ROM - Back Exam Back exam: Present: normal inspection. Absent: CVA tenderness (R), CVA tenderness (L) - Neurological Exam Neurological exam: Present: alert, oriented X3, CN II-XII intact - Skin Skin exam: Present: warm, intact, normal color ED Course Vital Signs 07/30/19 14:18 Temperature 98.4 F Pulse Rate 88 Respiratory 16 Rate Blood Pressure 173/116 [Left] O2 Sat by Pulse 98 Oximetry ED Medical Decision Making - Lab Data Result diagrams: 07/30/19 15:53 07/30/19 15:53 - Radiology Data Radiology results: report reviewed - Medical Decision Making Patient is 53 years old male with history of hypertension, diabetes and chronic kidney disease. Patient presented to the ER complaining of swelling to the right groin area for the last 2 weeks. Patient also stated that he has been having elevated blood sugar. Patient describes the swelling as comes and goes. Patient stated that he is able to push it back easily. Patient denied any vomiting or diarrhea. No fever or chills. Patient denied chest pain, shortness of breath or cough. Labs reviewed and showed blood glucose of 264. Chronic elevation of his creatinine of 2.5. Patient has inguinal hernia, easily reducible. Testicular ultrasound is negative for acute finding. Patient given a referral to Dr. Angelo and given a printout for inguinal hernia and advised to return to the ER if patient having difficulty reduce his hernia or started having more nausea and vomiting. Patient also advised to return to the ER if he develop any other symptoms. Critical care attestation.: If time is entered above; I have spent that time in minutes in the direct care of this critically ill patient, excluding procedure time. ED Disposition Clinical Impression: Hyperglycemia, Inguinal hernia Disposition: - TO HOME OR SELFCARE Is pt being admited?: No Condition: Stable Instructions: Inguinal Hernia (ED) Referrals: ELIZABETH ANGELO DO [Staff Physician] - 3-5 Days
[2019-07-30] MEDS ORDERED: cloNIDine 0.1 MG TAB PO ONE (21:25)
[2019-07-30 23:30] VITALS: BP 201/114
== END 2019-07-30 21:30 | disposition home or self-care (01) ==
LOC: ED 13:46
DX: E11.65 Type 2 diabetes mellitus with hyperglycemia (principal); K40.90 Unilateral inguinal hernia, without obstruction or gangrene, not specified as recurrent; I11.0 Hypertensive heart disease with heart failure; I50.9 Heart failure, unspecified; Z87.891 Personal history of nicotine dependence; Z79.899 Other long term (current) drug therapy; Z79.4 Long term (current) use of insulin
CPT/HCPCS: 36415; 80053; 82962; 85025; 93975

== ENCOUNTER 2019-08-14 12:18 | Emergency (ER) | payer MEDICAID ==
[2019-08-14 12:25] VITALS: BP 166/96
--- NOTE | 2019-08-14 12:29 | Event Note ---
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 Further treatment and workup at subsequent clinical providers discretion. Patient/guardian urged not to elope from the ED as their condition may be serious if not clinically assessed and managed.
--- NOTE | 2019-08-14 13:32 | Emergency Department Report ---
Chief Complaint: Abdominal Pain Stated Complaint: HERNIA PAIN/SUGAR CHECK Time Seen by Provider: 08/14/19 12:23 - HPI History of Present Illness: Mr. Castorena is a very pleasant 53-year-old male with history of insulin-dependent diabetes and inguinal hernia. He wanted his "sugar checked out". He had high readings at home. He denies any abdominal pain or vomiting. He has mild pain at the hernia. On exam I was able to easily reduce a 4 cm right inguinal hernia that was mobile and soft without tenderness. He did not appear to have any discomfort. Blood glucose here 153. He appears well. Medical screening exam completed. He has follow-up with surgeon next to address the inguinal hernia. He also has been referred to a new primary care physician. - Exam Vital Signs: Vital Signs 08/14/19 12:24 Temperature 97.8 F Pulse Rate 81 Respiratory 18 Rate Blood Pressure 166/96 O2 Sat by Pulse 100 Oximetry MSE screening note: Focused history and physical exam performed. Due to findings the following was ordered: ED Disposition for MSE Clinical Impression: Diabetes mellitus, Inguinal hernia, right Disposition: Z-07 MED SCREENING EXAM-LEFT Condition: Stable
== END 2019-08-14 13:50 | disposition left against medical advice (07) ==
LOC: ED 12:18
DX: E11.9 Type 2 diabetes mellitus without complications (principal); K40.90 Unilateral inguinal hernia, without obstruction or gangrene, not specified as recurrent
CPT/HCPCS: 82962; 99282

== ENCOUNTER 2019-10-20 11:44 | Emergency (ER) | payer SELFPAY ==
--- NOTE | 2019-10-20 12:27 | Event Note ---
ED Screening Note Date of service: 10/20/19 Time: 12:25 ED Screening Note: 54 y/o male comes in for both legs that are swelling times 1 week. Hx/o CHF, HTN This initial assessment/diagnostic orders/clinical plan/treatment(s) is/are subject to change based on patients health status, clinical progression and re- assessment by fellow clinical providers in the ED. Further treatment and workup at subsequent clinical providers discretion. Patient/guardian urged not to elope from the ED as their condition may be serious if not clinically assessed and managed. Initial orders include:
--- NOTE | 2019-10-20 13:14 | XRay Report ---
CHEST PA AND LATERAL VIEWS INDICATION: chf. COMPARISON: None FINDINGS: Support devices: None Heart: Normal Lungs/Pleura: No acute pulmonary or pleural findings. IMPRESSION: 1. No significant abnormality. Signer Name: Gareth Moody MD Signed: 10/20/2019 1:10 PM Workstation Name: [id number]
[2019-10-20 13:17] LABS: Basophils # (Auto) 0.1 K/mm3 (0.0-0.1); Eosinophils # (Auto) 0.3 K/mm3 (0.0-0.4); Hematocrit 28.5 % (35.5-45.6); Hemoglobin 9.6 gm/dl (11.8-15.2); Lymphocytes # (Auto) 1.6 K/mm3 (1.2-5.4); Lymphocytes % (Auto) 25.6 % (13.4-35.0); Mean Corpuscular HGB Conc 34 % (32-34); Mean Corpuscular Volume 89 fl (84-94); Monocytes # (Auto) 0.5 K/mm3 (0.0-0.8); Monocytes % (Auto) 7.5 % (0.0-7.3); Platelet Count 182 K/mm3 (140-440); Red Blood Count 3.22 M/mm3 (3.65-5.03); Red Cell Distribution Width 15.8 % (13.2-15.2)
[2019-10-20 13:43] LABS: Albumin 3.7 g/dL (3.9-5); Calcium 8.4 mg/dL (8.4-10.2)
[2019-10-20] MEDS ORDERED: FUROSEMIDE 40 MG/4 ML INJ IV ONE (14:27)
[2019-10-20 16:57] VITALS: BP 158/99
--- NOTE | 2019-10-20 16:57 | Emergency Department Report ---
ED General Adult HPI - General Chief complaint: Extremity Problem,Nontraumatic Stated complaint: BOTH FEET SWOLLEN Time Seen by Provider: 10/20/19 12:24 Source: patient Mode of arrival: Wheelchair Limitations: No Limitations - History of Present Illness Initial comments: Patient is a 54-year-old F [place] male with a past medical history of diabetes hypertension and congestive heart failure who is presenting with leg swelling and shortness of breath with exertion. Patient states over the past week his legs have dramatically increased in size. Is having some tight discomfort. When asked is the patient taking diuretics the patient states he does not believe that he is. Patient does have a history of being prescribed Bumex in February 2019 here at our facility. Patient states that this medication does not sound familiar to him. He does state the furosemide sounds familiar but he does not know if he has any of those pills at home or the dose. Patient does not have anyone in the house who can verify his medications at this time. Patient denies chest pain nausea vomiting fevers or chills. Patient states that his breathing is normal as long as he is not walking. Severity scale (0 -10): 0 - Related Data Previous Rx's Medication Instructions Recorded Last Taken Type Acetaminophen [Acetaminophen TAB] 650 mg PO Q4H PRN #15 tablet 10/24/18 01/25/19 Rx Aspirin [Aspirin BABY CHEW TAB] 81 mg PO QDAY #30 tab.chew 02/09/19 Unknown Rx AtorvaSTATin [Lipitor] 20 mg PO QHS #30 tab 02/09/19 Unknown Rx Bumetanide [Bumetanide 2 mg tab] 2 mg PO DAILY #30 tab 02/09/19 Unknown Rx ISOSORBIDE MONOnitrate [Imdur ER] 30 mg PO QDAY #30 tablet 02/09/19 Unknown Rx Insulin NPH/Regular [NovoLIN 70/30] 25 unit SUB-Q BIDDIAB #10 ml 02/09/19 Unknown Rx Lipase/Protease/Amylase [Creon Dr 6 each PO AC #30 capsule 02/09/19 Unknown Rx 12,000 Units] Sodium Bicarbonate 1,300 mg PO BID #60 tablet 02/09/19 Unknown Rx carvediloL [Coreg] 6.25 mg PO BID #60 tablet 02/09/19 Unknown Rx hydrALAZINE [Apresoline TAB] 100 mg PO TID #90 tab 02/09/19 Unknown Rx Ondansetron [Zofran Odt] 4 mg PO Q8HR PRN #14 tab.rapdis 07/30/19 Unknown Rx Furosemide [Lasix] 20 mg PO QDAY #30 tablet 10/20/19 Unknown Rx traMADoL [Ultram 50 MG tab] 50 mg PO Q6HR PRN #14 tablet 10/20/19 Unknown Rx Allergies Allergy/AdvReac Type Severity Reaction Status Date / Time No Known Allergies Allergy Verified 10/20/19 12:26 ED Review of Systems ROS: Stated complaint: BOTH FEET SWOLLEN Other details as noted in HPI Comment: All other systems reviewed and negative ED Past Medical Hx - Past Medical History Hx Hypertension: Yes Hx Congestive Heart Failure: Yes Hx Diabetes: Yes Hx Asthma: No Hx COPD: No - Surgical History Additional Surgical History: toes amputated - Social History Smoking Status: Never Smoker Substance Use Type: None - Medications Home Medications: Home Medications Medication Instructions Recorded Confirmed Last Taken Type Acetaminophen [Acetaminophen TAB] 650 mg PO Q4H PRN #15 tablet 10/24/18 01/26/19 01/25/19 Rx Aspirin [Aspirin BABY CHEW TAB] 81 mg PO QDAY #30 tab.chew 02/09/19 Unknown Rx AtorvaSTATin [Lipitor] 20 mg PO QHS #30 tab 02/09/19 Unknown Rx Bumetanide [Bumetanide 2 mg tab] 2 mg PO DAILY #30 tab 02/09/19 Unknown Rx ISOSORBIDE MONOnitrate [Imdur ER] 30 mg PO QDAY #30 tablet 02/09/19 Unknown Rx Insulin NPH/Regular [NovoLIN 70/30] 25 unit SUB-Q BIDDIAB #10 ml 02/09/19 Unknown Rx Lipase/Protease/Amylase [Creon Dr 6 each PO AC #30 capsule 02/09/19 Unknown Rx 12,000 Units] Sodium Bicarbonate 1,300 mg PO BID #60 tablet 02/09/19 Unknown Rx carvediloL [Coreg] 6.25 mg PO BID #60 tablet 02/09/19 Unknown Rx hydrALAZINE [Apresoline TAB] 100 mg PO TID #90 tab 02/09/19 Unknown Rx Ondansetron [Zofran Odt] 4 mg PO Q8HR PRN #14 tab.rapdis 07/30/19 Unknown Rx Furosemide [Lasix] 20 mg PO QDAY #30 tablet 10/20/19 Unknown Rx traMADoL [Ultram 50 MG tab] 50 mg PO Q6HR PRN #14 tablet 10/20/19 Unknown Rx ED Physical Exam - General Limitations: No Limitations General appearance: alert, in no apparent distress - Head Head exam: Present: atraumatic, normocephalic - Eye Eye exam: Present: normal appearance, PERRL, EOMI - ENT ENT exam: Present: mucous membranes moist - Neck Neck exam: Present: normal inspection - Respiratory Respiratory exam: Present: normal lung sounds bilaterally. Absent: respiratory distress, wheezes, rales, rhonchi - Cardiovascular Cardiovascular Exam: Present: regular rate, normal rhythm. Absent: systolic murmur, diastolic murmur, rubs, gallop - GI/Abdominal GI/Abdominal exam: Present: soft, normal bowel sounds - Rectal Rectal exam: Present: deferred - Extremities Exam Extremities exam: Present: normal inspection, other (Bilateral 3+ edema to the bilateral lower extremities up to the level of the knee) - Back Exam Back exam: Present: normal inspection - Neurological Exam Neurological exam: Present: alert, oriented X3 - Psychiatric Psychiatric exam: Present: normal affect, normal mood - Skin Skin exam: Present: warm, dry, intact, normal color. Absent: rash ED Course Vital Signs 10/20/19 10/20/19 10/20/19 11:50 15:00 15:01 Temperature 97.8 F Pulse Rate 71 83 84 Respiratory 16 11 L 19 Rate Blood Pressure 157/95 Blood Pressure 171/103 [Right] O2 Sat by Pulse 100 98 Oximetry 10/20/19 10/20/19 10/20/19 15:15 15:30 15:45 Temperature Pulse Rate 83 83 82 Respiratory 16 16 13 Rate Blood Pressure 151/92 158/95 137/87 Blood Pressure [Right] O2 Sat by Pulse 98 98 99 Oximetry 10/20/19 10/20/19 16:00 16:15 Temperature Pulse Rate 84 81 Respiratory 13 13 Rate Blood Pressure 165/94 153/94 Blood Pressure [Right] O2 Sat by Pulse 97 99 Oximetry ED Medical Decision Making - Lab Data Result diagrams: 10/20/19 12:47 10/20/19 12:47 Lab Results 10/20/19 10/20/19 Range/Units 12:47 12:47 WBC 6.4 (4.5-11.0) K/mm3 RBC 3.22 L (3.65-5.03) M/mm3 Hgb 9.6 L (11.8-15.2) gm/dl Hct 28.5 L (35.5-45.6) % MCV 89 (84-94) fl MCH 30 (28-32) pg MCHC 34 (32-34) % RDW 15.8 H (13.2-15.2) % Plt Count 182 (140-440) K/mm3 Lymph % (Auto) 25.6 (13.4-35.0) % [place] % (Auto) 7.5 H (0.0-7.3) % Eos % (Auto) 4.0 (0.0-4.3) % Baso % (Auto) 1.0 (0.0-1.8) % Lymph # 1.6 (1.2-5.4) K/mm3 [place] # 0.5 (0.0-0.8) K/mm3 Eos # 0.3 (0.0-0.4) K/mm3 Baso # 0.1 (0.0-0.1) K/mm3 Seg Neutrophils % 61.9 (40.0-70.0) % Seg Neutrophils # 4.0 (1.8-7.7) K/mm3 Sodium 144 (137-145) mmol/L Potassium 4.4 (3.6-5.0) mmol/L Chloride 108.0 H (98-107) mmol/L Carbon Dioxide 23 (22-30) mmol/L Anion Gap 17 mmol/L BUN 17 (9-20) mg/dL Creatinine 2.5 H (0.8-1.5) mg/dL Estimated GFR 33 ml/min BUN/Creatinine Ratio 7 % Glucose 50 L (75-100) mg/dL Calcium 8.4 (8.4-10.2) mg/dL Total Bilirubin 0.30 (0.1-1.2) mg/dL AST 214 H (5-40) units/L ALT 110 H (7-56) units/L Alkaline Phosphatase 143 H (35-129) units/L NT-Pro-B Natriuret Pep 6221 H (0-900) pg/mL Total Protein 6.0 L (6.3-8.2) g/dL Albumin 3.7 L (3.9-5) g/dL Albumin/Globulin Ratio 1.6 % - Medical Decision Making Patient given 40 of IV Lasix and he was able to diurese approximately 500 cc of urine. Patient is renal function is actually improved from his previous BUN/creatinine on file. Patient does not know the dose of his furosemide nor is he sure he has these medications at his home. Patient be given 20 mg tablets. Told the patient that he should try to locate the dose that the patient takes at baseline. Patient is to double his daily dose for the next 3 days and then go back to his normal regimen. Enough Lasix pills have been prescribed at this time. Critical care attestation.: If time is entered above; I have spent that time in minutes in the direct care of this critically ill patient, excluding procedure time. ED Disposition Clinical Impression: Acute exacerbation of congestive heart failure Qualifiers: Heart failure type: right-sided Qualified Code(s): I50.813 - Acute on chronic right heart failure Disposition: TO HOME OR SELFCARE Is pt being admited?: No Does the pt Need Aspirin: No Condition: Stable Instructions: Heart Failure (ED) Prescriptions: Furosemide [Lasix] 20 mg PO QDAY #30 tablet traMADoL [Ultram 50 MG tab] 50 mg PO Q6HR PRN #14 tablet PRN Reason: Pain Referrals: PRIMARY CARE, [Referring] - 3-5 Days Time of Disposition: 16:57
== END 2019-10-20 17:26 | disposition home or self-care (01) ==
LOC: ED 11:44
DX: I11.0 Hypertensive heart disease with heart failure (principal); I50.9 Heart failure, unspecified; J45.909 Unspecified asthma, uncomplicated; Z79.899 Other long term (current) drug therapy
CPT/HCPCS: 36415; 71046; 80053; 83880; 85025; 96374; 99284; J1940

== ENCOUNTER 2019-11-17 07:16 | Emergency (ER) | payer MEDICAID ==
--- NOTE | 2019-11-17 07:42 | Emergency Department Report ---
ED General Adult HPI - General Stated complaint: LOW BLOOD SUGAR Time Seen by Provider: 11/17/19 07:39 - History of Present Illness Initial comments: This is a 54-year-old male who was very weak this morning. He states he he called EMS but was unable to check her sugar because his machine was upstairs. He was recently discharged from the hospital. He states he has been taking the bicarb that was prescribed for him. He was found to have metabolic acidosis secondary to renal insufficiency. He was also found to have a right inguinal hernia. He states that this is reducible and it is not bothering him. He states that he vomited once yesterday but is not nauseated now. He states he can eat now. He states he did take his insulin this morning but does not know how much he took. He resides with family but he states that they are "not always around". He is a bit hesitant to provide historical information it would appear and does not answer questions very spontaneously. However, he denies fever or chills. He denies diarrhea or abdominal pain. He denies any other specific symptom beyond generalized weakness. Patient was found to have a sugar less than 40 in the field. He was given oral glucose. An IV was initiated and D5W was begun. EMS does not currently have D50. At the time of his arrival his Accu-Chek was found to be 200+. 11/14/19 Discharge Summary: Hospitalization Reason for admission: Abdominal pain. Condition: Serious Hospital course: This is a 54-year-old man with past medical history that include Alcohol CM EF 45%, diabetes, peripheral vascular disease, status post right foot amputation, chronic pancreatitis, previous alcohol use disorder, congestive heart failure, who presents with c/o severe abdominal pain that started on the day of admission. The patient was admitted with diagnosis of abdominal pain secondary to right inguinal hernia. Patient was also noted to have diagnosis of elec trolyte derangements and metabolic acidosis. Patient was initially kept n.p.o. until evaluated by surgery. Surgery recommended repair of inguinal hernia but not on an emergent basis. The hernia was noted to be soft, reducible and with no evidence of bowel obstruction. Surgery felt the patient would need cardiac risk stratification prior to surgery and optimization of his chronic medical conditions. Once patient is optimized, he may follow up in surgery clinic as outpatient to schedule elective inguinal hernia repair. Cardiology and nephrology saw the patient in consultation. With regards to the electrolyte derangements and metabolic acidosis patient was felt to have etiology related to acute kidney injury on chronic kidney disease. The patient was felt to have had worsening acidosis from diarrhea on top of acidosis related to CKD. Urine anion gap more consistent with renal losses however, but diarrhea has improved. Patient initially received IV bicarbonate that was later switched to p.o. bicarbonate. Patient is felt to receive maximal hospital benefit and will be discharged home. Patient is to follow-up with surgery, nephrology and cardiology as an outpatient. Dedicated discharge time 35 minutes. Disposition: DC-01 TO HOME OR SELFCARE Time spent for discharge: 35 - Discharge Diagnoses (1) Abdominal pain Status: Acute Qualifiers: Abdominal location: generalized Qualified Code(s): R10.84 - Generalized abdominal pain (2) CKD (chronic kidney disease) Status: Acute Qualifiers: Chronic kidney disease stage: unspecified stage Qualified Code(s): N18.9 - Chronic kidney disease, unspecified (3) Inguinal hernia Status: Acute Qualifiers: Obstruction and gangrene presence: without obstruction or gangrene Laterality: unilateral Recurrence: not specified as recurrent Qualified Code(s): K40.90 - Unilateral inguinal hernia, without obstruction or gangrene, not specified as recurrent (4) ANYA (acute kidney injury) Status: Acute (5) Anemia Status: Acute (6) Hypertension Status: Acute Qualifiers: Hypertension type: essential hypertension Qualified Code(s): I10 - Essential (primary) hypertension (7) Diabetes Status: Chronic Qualifiers: (8) PVD (peripheral vascular disease) Status: Chronic -: hour(s) - Related Data Previous Rx's Medication Instructions Recorded Last Taken Type Aspirin [Aspirin BABY CHEW TAB] 81 mg PO QDAY #30 tab.chew 02/09/19 11/12/19 Rx Bumetanide [Bumetanide 2 mg tab] 2 mg PO DAILY #30 tab 02/09/19 Unknown Rx Ondansetron [Zofran ODT TAB] 4 mg PO Q8HR PRN #14 tab.rapdis 07/30/19 Unknown Rx Furosemide [Lasix TAB] 20 mg PO QDAY #30 tablet 10/20/19 Unknown Rx AtorvaSTATin [Lipitor] 20 mg PO QHS #30 tab 11/14/19 Unknown Rx ISOSORBIDE MONOnitrate [Imdur ER] 30 mg PO QDAY #30 tablet 11/14/19 Unknown Rx Insulin NPH/Regular [NovoLIN 70/30] 25 unit SUB-Q BIDDIAB #10 ml 11/14/19 Unknown Rx Lipase/Protease/Amylase [Alex Espinoza 6 each PO AC #30 capsule 11/14/19 Unknown Rx 12,000 Units] Sodium Bicarbonate 1,300 mg PO BID #60 tablet 11/14/19 Unknown Rx carvediloL [Coreg] 6.25 mg PO BID #60 tablet 11/14/19 Unknown Rx hydrALAZINE [Apresoline TAB] 100 mg PO TID #90 tab 11/14/19 Unknown Rx oxyCODONE /ACETAMINOPHEN [Percocet 1 tab PO Q4HR #12 tab 11/14/19 Unknown Rx 5/325] Allergies Allergy/AdvReac Type Severity Reaction Status Date / Time No Known Allergies Allergy Verified 11/12/19 17:33 ED Review of Systems ROS: Stated complaint: LOW BLOOD SUGAR Other details as noted in HPI Constitutional: weakness. denies: chills, fever Eyes: denies: eye pain, eye discharge, vision change ENT: denies: ear pain, throat pain Respiratory: denies: cough, shortness of breath, wheezing Cardiovascular: denies: chest pain, palpitations Endocrine: no symptoms reported Gastrointestinal: vomiting. denies: abdominal pain, nausea Genitourinary: denies: urgency, dysuria Musculoskeletal: denies: back pain, joint swelling, arthralgia Skin: denies: rash, lesions Neurological: denies: headache, weakness, paresthesias Psychiatric: denies: anxiety, depression Hematological/Lymphatic: denies: easy bleeding, easy bruising ED Past Medical Hx - Past Medical History Hx Hypertension: Yes Hx Heart Attack/AMI: Yes Hx Congestive Heart Failure: Yes Hx Diabetes: Yes Hx Liver Disease: Yes Hx Asthma: No Hx COPD: No Hx Dementia: No Hx HIV: No - Surgical History Additional Surgical History: toes amputated - Social History Smoking Status: Never Smoker - Medications Home Medications: Home Medications Medication Instructions Recorded Confirmed Last Taken Type Aspirin [Aspirin BABY CHEW TAB] 81 mg PO QDAY #30 tab.chew 02/09/19 11/12/19 Rx Bumetanide [Bumetanide 2 mg tab] 2 mg PO DAILY #30 tab 02/09/19 11/13/19 Unknown Rx Ondansetron [Zofran ODT TAB] 4 mg PO Q8HR PRN #14 tab.rapdis 07/30/19 11/13/19 Unknown Rx Furosemide [Lasix TAB] 20 mg PO QDAY #30 tablet 10/20/19 Unknown Rx AtorvaSTATin [Lipitor] 20 mg PO QHS #30 tab 11/14/19 Unknown Rx ISOSORBIDE MONOnitrate [Imdur ER] 30 mg PO QDAY #30 tablet 11/14/19 Unknown Rx Insulin NPH/Regular [NovoLIN 70/30] 25 unit SUB-Q BIDDIAB #10 ml 11/14/19 Unknown Rx Lipase/Protease/Amylase [Creon Dr 6 each PO AC #30 capsule 11/14/19 Unknown Rx 12,000 Units] Sodium Bicarbonate 1,300 mg PO BID #60 tablet 11/14/19 Unknown Rx carvediloL [Coreg] 6.25 mg PO BID #60 tablet 11/14/19 Unknown Rx hydrALAZINE [Apresoline TAB] 100 mg PO TID #90 tab 11/14/19 Unknown Rx oxyCODONE /ACETAMINOPHEN [Percocet 1 tab PO Q4HR #12 tab 11/14/19 Unknown Rx 5/325] ED Physical Exam - General Limitations: Physical Limitation General appearance: alert, in no apparent distress - Head Head exam: Present: atraumatic, normocephalic - Eye Eye exam: Present: normal appearance. Absent: scleral icterus - ENT ENT exam: Present: mucous membranes moist - Neck Neck exam: Present: normal inspection - Respiratory Respiratory exam: Present: normal lung sounds bilaterally. Absent: respiratory distress - Cardiovascular Cardiovascular Exam: Present: regular rate, normal rhythm. Absent: systolic murmur, diastolic murmur, rubs, gallop - GI/Abdominal GI/Abdominal exam: Present: soft, normal bowel sounds, hernia (Reducible right inguinal hernia). Absent: distended, tenderness, guarding, rebound - Rectal Rectal exam: Present: deferred - Extremities Exam Extremities exam: Present: other (Bilateral leg edema looks like lymphedema about 2+). Absent: calf tenderness - Back Exam Back exam: Present: normal inspection - Neurological Exam Neurological exam: Present: alert, oriented X3, CN II-XII intact, other (No acute focal deficit). Absent: motor sensory deficit - Psychiatric Psychiatric exam: Present: normal mood, flat affect - Skin Skin exam: Present: warm, dry, intact, normal color. Absent: rash ED Course Vital Signs 11/17/19 11/17/19 07:52 08:04 Pulse Rate 78 Respiratory 18 18 Rate Blood Pressure 138/84 O2 Sat by Pulse 99 99 Oximetry - Reevaluation(s) Reevaluation #1: Patient was able to eat. His blood sugar has been monitored in the emergency department. He now tells me that he took 20 units of insulin this morning. His blood sugar has been stable. He has a chronically elevated troponin very similar to his recent admission. He has no shortness of breath and no chest discomfort whatsoever. I do believe he has a chronic cardiomyopathy. However, there is no indication that he has a STEMI or non-STEMI. He has chronic renal insufficiency which certainly can be a contributory factor. In any case I do not think he currently meets criteria for admission. The patient is directed to follow-up with his primary care provider. He is directed to decrease his insulin dose and monitor his sugars carefully. He should return to the emergency department for any acute change or problem. He is discharged in an asymptomatic condition. He states he is compliant with the prescriptions that he was given on the seventh. 11/17/19 11:45 ED Medical Decision Making - Lab Data Result diagrams: 11/17/19 08:06 11/17/19 08:06 Laboratory Results - last 24 hr 11/17/19 11/17/19 11/17/19 07:57 08:06 08:06 WBC 8.8 RBC 3.27 L Hgb 9.7 L Hct 29.5 L MCV 90 MCH 30 MCHC 33 RDW 16.2 H Plt Count 200 Lymph % (Auto) 10.5 L Mcintosh % (Auto) 5.8 Eos % (Auto) 0.7 Baso % (Auto) 0.5 Lymph # 0.9 L Mcintosh # 0.5 Eos # 0.1 Baso # 0.0 Seg Neutrophils % 82.5 H Seg Neutrophils # 7.3 PT 12.6 INR 0.93 APTT 31.7 POC Glucose 205 H Lactic Acid 11/17/19 11/17/19 08:06 09:30 WBC RBC Hgb Hct MCV MCH MCHC RDW Plt Count Lymph % (Auto) Mcintosh % (Auto) Eos % (Auto) Baso % (Auto) Lymph # Mcintosh # Eos # Baso # Seg Neutrophils % Seg Neutrophils # PT INR APTT POC Glucose 192 H Lactic Acid 1.20 Laboratory Results - last 24 hr 11/17/19 11/17/19 11/17/19 07:57 08:06 08:06 WBC 8.8 RBC 3.27 L Hgb 9.7 L Hct 29.5 L MCV 90 MCH 30 MCHC 33 RDW 16.2 H Plt Count 200 Lymph % (Auto) 10.5 L Mcintosh % (Auto) 5.8 Eos % (Auto) 0.7 Baso % (Auto) 0.5 Lymph # 0.9 L Mcintosh # 0.5 Eos # 0.1 Baso # 0.0 Seg Neutrophils % 82.5 H Seg Neutrophils # 7.3 PT INR APTT Sodium 137 Potassium 4.2 Chloride 103.8 Carbon Dioxide 18 L Anion Gap 19 BUN 27 H Creatinine 2.0 H Estimated GFR 43 BUN/Creatinine Ratio 14 Glucose 163 H POC Glucose 205 H Lactic Acid Calcium 8.6 Magnesium Total Bilirubin AST ALT Alkaline Phosphatase Total Creatine Kinase 525 H CK-MB (CK-2) 26.7 H CK-MB (CK-2) Rel Index 5.0 H Troponin T Albumin Albumin/Globulin Ratio 11/17/19 11/17/19 11/17/19 08:06 08:06 08:06 WBC RBC Hgb Hct MCV MCH MCHC RDW Plt Count Lymph % (Auto) Mcintosh % (Auto) Eos % (Auto) Baso % (Auto) Lymph # Mcintosh # Eos # Baso # Seg Neutrophils % Seg Neutrophils # PT 12.6 INR 0.93 APTT 31.7 Sodium Potassium Chloride Carbon Dioxide Anion Gap BUN Creatinine Estimated GFR BUN/Creatinine Ratio Glucose POC Glucose Lactic Acid 1.20 Calcium Magnesium 1.80 Total Bilirubin 0.30 AST 45 H ALT 59 H Alkaline Phosphatase 135 H Total Creatine Kinase CK-MB (CK-2) CK-MB (CK-2) Rel Index Troponin T 0.528 H* Albumin 3.4 L Albumin/Globulin Ratio 1.3 11/17/19 09:30 WBC RBC Hgb Hct MCV MCH MCHC RDW Plt Count Lymph % (Auto) Mcintosh % (Auto) Eos % (Auto) Baso % (Auto) Lymph # Mcintosh # Eos # Baso # Seg Neutrophils % Seg Neutrophils # PT INR APTT Sodium Potassium Chloride Carbon Dioxide Anion Gap BUN Creatinine Estimated GFR BUN/Creatinine Ratio Glucose POC Glucose 192 H Lactic Acid Calcium Magnesium Total Bilirubin AST ALT Alkaline Phosphatase Total Creatine Kinase CK-MB (CK-2) CK-MB (CK-2) Rel Index Troponin T Albumin Albumin/Globulin Ratio Laboratory Results - last 24 hr 11/17/19 11/17/19 11/17/19 07:57 08:06 08:06 WBC 8.8 RBC 3.27 L Hgb 9.7 L Hct 29.5 L MCV 90 MCH 30 MCHC 33 RDW 16.2 H Plt Count 200 Lymph % (Auto) 10.5 L Mcintosh % (Auto) 5.8 Eos % (Auto) 0.7 Baso % (Auto) 0.5 Lymph # 0.9 L Mcintosh # 0.5 Eos # 0.1 Baso # 0.0 Seg Neutrophils % 82.5 H Seg Neutrophils # 7.3 PT INR APTT Sodium 137 Potassium 4.2 Chloride 103.8 Carbon Dioxide 18 L Anion Gap 19 BUN 27 H Creatinine 2.0 H Estimated GFR 43 BUN/Creatinine Ratio 14 Glucose 163 H POC Glucose 205 H Lactic Acid Calcium 8.6 Magnesium Total Bilirubin Direct Bilirubin Indirect Bilirubin AST ALT Alkaline Phosphatase Total Creatine Kinase 525 H CK-MB (CK-2) 26.7 H CK-MB (CK-2) Rel Index 5.0 H Troponin T Total Protein Albumin Albumin/Globulin Ratio 11/17/19 11/17/19 11/17/19 08:06 08:06 08:06 WBC RBC Hgb Hct MCV MCH MCHC RDW Plt Count Lymph % (Auto) Mcintosh % (Auto) Eos % (Auto) Baso % (Auto) Lymph # Mcintosh # Eos # Baso # Seg Neutrophils % Seg Neutrophils # PT 12.6 INR 0.93 APTT 31.7 Sodium Potassium Chloride Carbon Dioxide Anion Gap BUN Creatinine Estimated GFR BUN/Creatinine Ratio Glucose POC Glucose Lactic Acid 1.20 Calcium Magnesium 1.80 Total Bilirubin 0.30 Direct Bilirubin < 0.2 Indirect Bilirubin 0.1 AST 45 H ALT 59 H Alkaline Phosphatase 135 H Total Creatine Kinase CK-MB (CK-2) CK-MB (CK-2) Rel Index Troponin T 0.528 H* Total Protein 6.1 L D Albumin 3.4 L Albumin/Globulin Ratio 1.3 11/17/19 09:30 WBC RBC Hgb Hct MCV MCH MCHC RDW Plt Count Lymph % (Auto) Mcintosh % (Auto) Eos % (Auto) Baso % (Auto) Lymph # Mcintosh # Eos # Baso # Seg Neutrophils % Seg Neutrophils # PT INR APTT Sodium Potassium Chloride Carbon Dioxide Anion Gap BUN Creatinine Estimated GFR BUN/Creatinine Ratio Glucose POC Glucose 192 H Lactic Acid Calcium Magnesium Total Bilirubin Direct Bilirubin Indirect Bilirubin AST ALT Alkaline Phosphatase Total Creatine Kinase CK-MB (CK-2) CK-MB (CK-2) Rel Index Troponin T Total Protein Albumin Albumin/Globulin Ratio - EKG Data -: EKG Interpreted by Me EKG shows normal: sinus rhythm, axis, intervals, QRS complexes, ST-T waves Rate: normal - EKG Data Leftward axis, LVH, J-point elevation anterior leads. 11/17/19 10:45 - Radiology Data Radiology results: report reviewed (No acute findings) Critical care attestation.: If time is entered above; I have spent that time in minutes in the direct care of this critically ill patient, excluding procedure time. ED Disposition Clinical Impression: Hypoglycemia due to insulin, Chronic renal insufficiency, stage III (moderate) Cardiomyopathy Qualifiers: Cardiomyopathy type: unspecified Qualified Code(s): I42.9 - Cardiomyopathy, unspecified Disposition: DC-01 TO HOME OR SELFCARE Is pt being admited?: No Does the pt Need Aspirin: No Condition: Stable Instructions: Diabetic Hypoglycemia (ED), Chronic Kidney Disease (ED) Additional Instructions: Decrease your insulin dose to 10 from 20 or as per your sugar readings. Follow your sugars carefully with a glucometer. See your primary care physician tomorrow. Return to the emergency department any acute change or problem as needed. Referrals: MARLEY SALMON MD [Primary Care Provider] - 3-5 Days Time of Disposition: 11:45
[2019-11-17 08:36] LABS: Basophils % (Auto) 0.5 % (0.0-1.8); Eosinophils # (Auto) 0.1 K/mm3 (0.0-0.4); Eosinophils % (Auto) 0.7 % (0.0-4.3); Hematocrit 29.5 % (35.5-45.6); Hemoglobin 9.7 gm/dl (11.8-15.2); Lymphocytes # (Auto) 0.9 K/mm3 (1.2-5.4); Lymphocytes % (Auto) 10.5 % (13.4-35.0); Mean Corpuscular HGB Conc 33 % (32-34); Mean Corpuscular Volume 90 fl (84-94); Monocytes # (Auto) 0.5 K/mm3 (0.0-0.8); Monocytes % (Auto) 5.8 % (0.0-7.3); Platelet Count 200 K/mm3 (140-440); Red Blood Count 3.27 M/mm3 (3.65-5.03); Red Cell Distribution Width 16.2 % (13.2-15.2)
[2019-11-17 08:49] LABS: INR 0.93 (0.87-1.13); Partial Thromboplastin Time 31.7 Sec. (24.2-36.6)
[2019-11-17 09:46] LABS: Creatine Kinase MB 26.7 ng/mL (0.0-4.0)
[2019-11-17 09:50] LABS: Calcium 8.6 mg/dL (8.4-10.2)
[2019-11-17 09:51] LABS: Alanine Aminotransferase 59 units/L (7-56); Albumin 3.4 g/dL (3.9-5)
[2019-11-17 10:04] LABS: Bilirubin,Direct < 0.2 mg/dL (0-0.2)
--- NOTE | 2019-11-17 10:41 | XRay Report ---
CHEST 1 VIEW INDICATION: hypertension. COMPARISON: 11/12/2019 FINDINGS: Support devices: None. Heart: Stable cardiomegaly. Lungs/Pleura: No acute air space or interstitial disease. Additional findings: None. IMPRESSION: Stable cardiomegaly. Signer Name: Mal Cadena MD Signed: 11/17/2019 10:37 AM Workstation Name: [id number]
[2019-11-17 11:22] LABS: Bacteria,Urine 1+ /HPF (Negative); Bilirubin,Urine NEG (Negative); Blood,Urine SM (Negative); Color,Urine Yellow (Yellow); Urobilinogen,Urine < 2.0 mg/dL (<2.0)
[2019-11-17 11:30] LABS: Amphetamine Screen,Urine PRESUMPTIVE NEGATIVE; Benzodiazepines Screen,Urine PRESUMPTIVE NEGATIVE; Cocaine Screen,Urine PRESUMPTIVE NEGATIVE; Methadone Screen,Urine PRESUMPTIVE NEGATIVE; Opiate Screen,Urine PRESUMPTIVE NEGATIVE
[2019-11-17 12:20] VITALS: BP 181/114
[2019-11-17 12:35] LABS: Cannabinoid Screen,Urine PRESUMPTIVE NEGATIVE
== END 2019-11-17 12:21 | disposition home or self-care (01) ==
LOC: ED 07:16
DX: I13.0 Hypertensive heart and chronic kidney disease with heart failure and stage 1 through stage 4 chronic kidney disease, or unspecified chronic kidney disease (principal); I50.9 Heart failure, unspecified; E11.649 Type 2 diabetes mellitus with hypoglycemia without coma; E11.22 Type 2 diabetes mellitus with diabetic chronic kidney disease; N18.3 Chronic kidney disease, stage 3 (moderate); I42.9 Cardiomyopathy, unspecified; I25.2 Old myocardial infarction; Z79.899 Other long term (current) drug therapy; Z98.890 Other specified postprocedural states; Z79.4 Long term (current) use of insulin
CPT/HCPCS: 36415; 71045; 80048; 80076; 80307; 81001; 82140; 82550; 82553; 82962; 83735; 84484; 85025; 85610; 85730; 87040; 93005; 93010